=== PATIENT | female | born 1965 | race Caucasian/White ===

== ENCOUNTER → 2016-10-03 | Outpatient (REF) | payer OTHER ==
[~2016-10-03] MED LIST: ALBU17IN INH; BACL-67 PO; BACL10TA2 PO; BUTR5DIS2 TD; CETI10TA OR; CLAR5CHW; DOCU100T8 PO; DRIS50002 PO; EFFE75CA75 OR; ESTR2TAB4 PV; ESTRGEL TD; FENT25DI22 TD; FLON0.05; GLUC500T3 PO; GREEN FOODS COMPLEX PO; HYDR-3713 PO; HYDR-3719 PO; HYDR12.55 PO; IMIT50TA OR; K-TA10TA PO; LOSA50TA20 PO; MELOPOW; MELOPOW PO; OMEP40CA2 PO; PEPC20TA2; POTA75TA2 PO; PREG50CA; PREG50CA PO; PREV15CA; PREV15CA PO; PREV30CA11 PO; PROBCAP4 PO; SAVE50TA PO; SAVELLA; SEVELLA; SYNT25TA PO; SYNT50TA PO; TIZA4TAB OR; TRAM50TA2 OR; VICO5TAB; VICODINES TAB; VITAMIN D50000 UNT PO; ZANA4CAP PO; ZEST20TA4 OR; [UNRECOGNIZED DRUG - CODE] TOP; [UNRECOGNIZED DRUG - OTHER] PO
[2016-10-03 09:53] LABS: ALBUMIN 3.9 GM/DL (3.2-5.2); ALBUMIN/GLOBULIN RATIO 1.18 (1.00-1.93); ALKALINE PHOSPHATASE 84 U/L (45-117); ALT/SGPT 44 U/L (12-78); ANION GAP 10 MEQ/L (8-16); AST/SGOT 23 U/L (15-37); BILIRUBIN,TOTAL 0.8 MG/DL (0.2-1.0); BLOOD UREA NITROGEN 12 MG/DL (7-18); CALCIUM LEVEL 9.1 MG/DL (8.5-10.1); CARBON DIOXIDE LEVEL 30 MEQ/L (21-32); CHLORIDE LEVEL 103 MEQ/L (98-107); CREATININE FOR GFR 0.96 MG/DL (0.55-1.02); FREE T4 1.19 NG/DL (0.76-1.46); GLOMERULAR FILTRATION RATE > 60.0 (>51); GLUCOSE, FASTING 94 MG/DL (70-105); SODIUM LEVEL 143 MEQ/L (136-145); TOTAL PROTEIN 7.2 GM/DL (6.4-8.2)
== END ==
LOC: M SFHCPLAZ 08:14
PROVIDERS: ATTEND Nurse Practitioner Family
DX: I15.8 Other secondary hypertension (principal); E03.9 Hypothyroidism, unspecified; E55.9 Vitamin D deficiency, unspecified

== ENCOUNTER → 2016-11-19 | Outpatient (CLI) | payer OTHER ==
--- NOTE | 2016-11-23 01:51 | ECWPNPC ---
PATIENT NAME: ROSHAN WOODS : 1965 GENDER: FEMALE VISIT DATE: 11/19/2016 DISCHARGE DATE: 11/19/1644 VISIT LOCKED DATE TIME: PHYSICIAN: LAUREN DE LA ROSA RESOURCE: LAUREN DE LA ROSA REASON FOR APPOINTMENT 1. FOLLOWUP-BACK HISTORY OF PRESENT ILLNESS HISTORY OF PRESENT ILLNESS: HERE FOR F/U OF CHRONIC LBP.PAIN HAS ESCALATED LATELY.RATING PAIN VAS 5/10.PAIN IS DESCRIBED CONSTANT ACHING.CURRENTLY USING FENTANYL 25MCG Q 72 HRS AND HYDROCODONE 10/325 PRN.FINDS MEDICATION HELPFUL AT REDUCING PAIN AND KEEPING HER FUNCTIONAL.DENIES SIDE EFFECTS.DISCUSSED DIAGNOSTIC FACET BLOCK. FALL RISK SCREENING: SCREENING :NO FALLS IN THE PAST YEAR CURRENT MEDICATIONS TAKING ESTRACE 2 GRAMS VAGINAL 2 TIMES A WEEK TAKING PAIN RELIEVING RUB CREAM 1 DOSE EXTERNALLY NEEDED/ TAKING PROBIOTIC CAPSULE ORALLY DAILY TAKING IMITREX 50 MG TABLET 1 TAB ORALLY NEEDED/ FOR MIGRAINES TAKING HYDROXYCHLOROQUINE SULFATE 200 MG TABLET 1 TABLET WITH FOOD OR MILK ORALLY TWICE A DAY TAKING BACLOFEN 20 MG TABLET 1 CAP(S) ORALLY Q6H NEEDED TAKING SYNTHROID 75 MCG TABLET 1 TABLET ON AN EMPTY STOMACH IN THE MORNING ORALLY ONCE A DAY TAKING LOSARTAN POTASSIUM 50 MG TABLET 1 TABLET ORALLY DAILY TAKING OMEPRAZOLE 40 MG 1 CAPSULE ORALLY DAILY TAKING FLONASE INHALER 2 SPRAY IN EACH NOSTRIL NASALLY ONCE A DAY TAKING ZYRTEC 10 MG TABLET 1 TABLET NEEDED ORALLY ONCE A DAY TAKING VENTOLIN HFA AEROSOL SOLUTION 2 PUFFS NEEDED INHALATION EVERY 4 HOURS NEEDED TAKING VITAMIN D 22398 UNIT CAPSULE 1 CAPSULE ORALLY ONCE A WEEK TAKING HYDROCODONE-ACETAMINOPHEN 10-325 MG TABLET 1/2 TO 1 TAB ORALLY Q6-8 H MDD3 TAKING FENTANYL 25 MCG/HR PATCH 72 HOUR 1 PATCH TO SKIN TRANSDERMAL 1 PATCH C84U=IEE NOT-TAKING POTASSIUM CHLORIDE 10 MEQ 3 TABS ORALLY DAILY NOT-TAKING OMEPRAZOLE 40 MG CAPSULE DELAYED RELEASE 1 CAPSULE ORALLY ONCE A DAY NOT-TAKING DOCUSATE SODIUM 100 MG CAPSULE ORALLY ONCE A DAY NEEDED MEDICATION LIST REVIEWED AND RECONCILED WITH THE PATIENT PAST MEDICAL HISTORY LUPUS RA SLEEP APNEA FIBROMYALGIA HYPERTENSION GERD CHRONIC BACK PROBLEMS (BULDGING DISC) SOB WHEN IN SEVERE BACK PAIN USES VENTOLIN INHALER COLONOSCOPY WITH EGD 2015 ALLERGIES N.K.D.A. SOCIAL HISTORY GENERAL: TOBACCO USE ARE YOU A:NONSMOKER LEARNING BARRIERS / SPECIAL NEEDS ORIENTED TO PLAN OF CARE: PATIENT, PAIN MANAGEMENT PATIENT, ORIENTED TO PLAN OF CARE: PATIENT, PAIN MANAGEMENT PATIENT. NEW PATIENT PAIN DIARY TODAY'S VISITNOTES FROM 0-10, WHAT LEVEL IS YOUR PAIN TODAY?0 PAIN CLINIC PFS, CLERGY, PUBLIC HEALTH REFERRALS PFS REFERRAL NEEDED?NO CLERGY REFERRAL NEEDED?NO PUBLIC HEALTH REFERRAL NEEDED?NO WAS THE PROVIDER NOTIFIED OF ANY PERTINENT INFO?NO PFS REFERRAL NEEDED?NO CLERGY REFERRAL NEEDED?NO PUBLIC HEALTH REFERRAL NEEDED?NO WAS THE PROVIDER NOTIFIED OF ANY PERTINENT INFO?NO REVIEW OF SYSTEMS CONSTITUTIONAL: ANY CHANGE IN YOUR MEDICAL CONDITION? NO . CHILLS NO . FEVER NO . INFECTION: DO YOU HAVE NEW INFECTIONS? NO . DO YOU HAVE HISTORY OF MRSA? NO . MUSCULOSKELETAL: ANY NEW PATTERNS OF PAIN OR NUMBNESS? NO . GASTROENTEROLOGY: ANY NEW CHANGE IN BOWEL CONTROL? NO . GENITOURINARY: ANY NEW CHANGE IN BLADDER CONTROL? NO . IS THERE A CHANCE YOU COULD BE ? NO . HEMATOLOGY/LYMPH: DO YOU TAKE ANY BLOOD THINNERS? (FOR EXAMPLE- COUMADIN, PLAVIX, AGGRENOX, PLATEL, PRADAXA, OR XARELTO) NO . WHEN WAS YOUR LAST DOSE? DATE: TIME: . NEUROLOGY: HAVE YOU FALLEN IN THE PAST 6 MONTHS? YES . ANY NEW EXTREMITY NUMBNESS OR WEAKNESS? NO . CARDIOLOGY: DO YOU HAVE A PACEMAKER OR DEFIBRILLATOR? NO . RESPIRATORY: HAVE YOU BEEN SICK IN THE PAST WEEK? YES, UPPER RESPIRATORY . FEVER YES . FLU LIKE SYMPTOMS? NO . COUGH YES . INTEGUMENTARY: DO YOU HAVE ANY RASHES OR OPEN SORES? NO . ALLERGIC/IMMUNO: ARE YOU ALLERGIC TO SHELLFISH OR IV DYE? NO . ANY NEW ALLERGIES? NO . PSYCHIATRIC: DO YOU HAVE THOUGHTS OF HURTING YOURSELF OR SOMEONE ELSE? NO . ARE YOU ABUSED, NEGLECTED, OR IN AN UNSAFE ENVIRONMENT? NO . ENDOCRINOLOGY: ARE YOU DIABETIC? NO . OTHER: DO YOU NEED ANY PRESCRIPTIONS? YES . IF YES, PLEASE LIST: FENTANYL PATCH AND HYDROCODONE . ANY NEW PROBLEMS WITH YOUR MEDICATIONS? NO . WHEN DID YOU LAST EAT? ____ . WHEN DID YOU LAST DRINK? ____ . WHAT DID YOU LAST DRINK? ____ . NAME OF PERSON DRIVING YOU HOME? ____ . DO YOU HAVE ANY OTHER QUESTIONS OR CONCERNS NO . REVIEWED BY: PROVIDER: LAUREN ALEXANDRA . VITAL SIGNS WT 266 LBS, HT 64.5 IN, BMI 44.95 INDEX, BP 150/82 MM HG, HR 89 /MIN, RR 18 /MIN, TEMP 98.5 F, OXYGEN SAT % 96%, NA INITIALS TL, REVIEWED BY: SWATI. EXAMINATION GENERAL EXAMINATION: LUNGS:LUNG SOUNDS ARE CLEAR. HEART:HEART RATE REGULAR. MUSCULOSKELETAL:PALPATION: POSITIVE FOR PAIN OVER L/S SPINE. POSITIVE FOR PAIN OVER L/S PARSPINALS.POINT TENDERNEDD OVER RIGHT T8-10 AXIAL AND PARASPINAL.. DIAGNOSTIC:MRI L/S SPINE 2015-REVIEWED.. ASSESSMENTS LUPUS - M32.9 (PRIMARY) LOW BACK PAIN OF OVER 3 MONTHS DURATION - M54.5 FACET ARTHROPATHY - M12.88 CHRONIC PRESCRIPTION OPIATE USE - Z79.891 TREATMENT LUPUS CONTINUE BACLOFEN TABLET, 20 MG, 1 CAP(S), ORALLY, Q6H NEEDED REFILL HYDROCODONE-ACETAMINOPHEN TABLET, 10-325 MG, 1/2 TO 1 TAB, ORALLY, Q6-8 H MDD3, 30 DAY(S), 90, REFILLS 0 REFILL FENTANYL PATCH 72 HOUR, 25 MCG/HR, 1 PATCH TO SKIN, TRANSDERMAL, 1 PATCH P20F=OLO, 30 DAY(S), 10, REFILLS 0 INJECTION FACET JOINT/NERVE LUMBAR/SACRALBARBERLAUREN 11/19/2016 9:29:50 AM > LEFT L3/4-L4/5 DIAGNOSTIC FACET BLOCK FACET ARTHROPATHY INJECTION FACET JOINT/NERVE LUMBAR/SACRALBARBER,LAUREN 11/19/2016 9:29:50 AM > LEFT L3/4-L4/5 DIAGNOSTIC FACET BLOCK PROCEDURE CODES FA211 ESTABILISHED PATIENT [facility] FACILITY CHARGE DISPOSITION & COMMUNICATION FOLLOW UP 2WK POST (REASON: LEFT L3/4-L4/5 DIAGNOSTIC FACET BLOCK-GIOVANNA AUTH) ELECTRONICALLY SIGNED BY NASRIN SLAUGHETR ON 11/19/2016 AT 10:07 AM EST DISCLAIMER : THIS IS A VISIT SUMMARY EXTRACTED FROM THE [employer] CHART. IT IS NOT A COPY OF THE [employer] PROGRESS NOTE. MTDD
== END ==
LOC: M PAIN 08:40
PROVIDERS: ATTEND Nurse Practitioner Family
DX: M32.9 Systemic lupus erythematosus, unspecified (principal); M54.5 Low back pain; M12.88 Other specific arthropathies, not elsewhere classified, other specified site; Z79.891 Long term (current) use of opiate analgesic; Z79.899 Other long term (current) drug therapy; M79.7 Fibromyalgia; R06.02 Shortness of breath; I10 Essential (primary) hypertension; K21.0 Gastro-esophageal reflux disease with esophagitis; E55.9 Vitamin D deficiency, unspecified; G43.909 Migraine, unspecified, not intractable, without status migrainosus

== ENCOUNTER → 2016-12-17 | Outpatient (CLI) | payer OTHER ==
[~2016-12-17] MED LIST changes: +BUPIVACAINE HCL 0.25% 30 ML VIAL As Ordered ONE; +ISOVUE-M 300 61% 15ML VIAL (Q9967) As Ordered ONE; +LIDOCAINE 1% SDV INJ 30 ML VIAL As Ordered ONE
--- NOTE | 2016-12-17 11:36 | REP ---
Partial lumbar spine series: Single view. History: Facet block for pain. 24 seconds of fluoroscopy time is reported. Findings: A single fluoroscopically obtained into procedural spot radiograph of the lumbar spine documents needle positions and contrast injection associated with facet injection procedure. [employer] Signed by George Peraza MD 12/17/2016 11:27 A
--- NOTE | 2016-12-23 23:43 | ECWPNPC ---
PATIENT NAME: ROSHAN WOODS : 1965 GENDER: FEMALE VISIT DATE: 12/17/2016 DISCHARGE DATE: 12/17/16 1017 VISIT LOCKED DATE TIME: PHYSICIAN: ABBI MONTERO RESOURCE: ABBI MONTERO REASON FOR APPOINTMENT 1. FACET HISTORY OF PRESENT ILLNESS HISTORY OF PRESENT ILLNESS: PAIN THE PATIENT DESCRIBES THE PAIN... FALL RISK SCREENING: SCREENING :NO FALLS IN THE PAST YEAR CURRENT MEDICATIONS TAKING ESTRACE 2 GRAMS VAGINAL 2 TIMES A WEEK, NOTES: 423 10PM TAKING PAIN RELIEVING RUB CREAM 1 DOSE EXTERNALLY NEEDED/, NOTES: 1 WEEK TAKING PROBIOTIC CAPSULE ORALLY DAILY, NOTES: 12/17 10AM TAKING IMITREX 50 MG TABLET 1 TAB ORALLY NEEDED/ FOR MIGRAINES, NOTES: 1 WEEK TAKING HYDROXYCHLOROQUINE SULFATE 200 MG TABLET 1 TABLET WITH FOOD OR MILK ORALLY TWICE A DAY, NOTES: 12/16 6PM TAKING SYNTHROID 75 MCG TABLET 1 TABLET ON AN EMPTY STOMACH IN THE MORNING ORALLY ONCE A DAY, NOTES: 12/17 6AM TAKING OMEPRAZOLE 40 MG 1 CAPSULE ORALLY DAILY, NOTES: 12/16 6PM TAKING FLONASE INHALER 2 SPRAY IN EACH NOSTRIL NASALLY ONCE A DAY, NOTES: 12/16 10AM TAKING VENTOLIN HFA AEROSOL SOLUTION 2 PUFFS NEEDED INHALATION EVERY 4 HOURS NEEDED, NOTES: 1 WEEK TAKING VITAMIN D 02462 UNIT CAPSULE 1 CAPSULE ORALLY ONCE A WEEK, NOTES: 2 DAYS AGO TAKING BACLOFEN 20 MG TABLET 1 CAP(S) ORALLY Q6H NEEDED, NOTES: 12/16 10PM TAKING HYDROCODONE-ACETAMINOPHEN 10-325 MG TABLET 1/2 TO 1 TAB ORALLY Q6-8 H MDD3, NOTES: 12/16 10PM TAKING FENTANYL 25 MCG/HR PATCH 72 HOUR 1 PATCH TO SKIN TRANSDERMAL 1 PATCH C84Q=GLQ, NOTES: REMOVED 12/17 7:30AM TAKING LOSARTAN POTASSIUM 50 MG TABLET 1 TABLET ORALLY DAILY, NOTES: 12/16 10PM TAKING ZYRTEC 10 MG TABLET 1 TABLET NEEDED ORALLY ONCE A DAY, NOTES: 12/16 10PM NOT-TAKING POTASSIUM CHLORIDE 10 MEQ 3 TABS ORALLY DAILY NOT-TAKING OMEPRAZOLE 40 MG CAPSULE DELAYED RELEASE 1 CAPSULE ORALLY ONCE A DAY NOT-TAKING DOCUSATE SODIUM 100 MG CAPSULE ORALLY ONCE A DAY NEEDED MEDICATION LIST REVIEWED AND RECONCILED WITH THE PATIENT PAST MEDICAL HISTORY LUPUS RA SLEEP APNEA FIBROMYALGIA HYPERTENSION GERD CHRONIC BACK PROBLEMS (BULDGING DISC) SOB WHEN IN SEVERE BACK PAIN USES VENTOLIN INHALER COLONOSCOPY WITH EGD 2015 ALLERGIES N.K.D.A. SOCIAL HISTORY GENERAL: PAIN CLINIC PFS, CLERGY, PUBLIC HEALTH REFERRALS CLERGY REFERRAL NEEDED?NO WAS THE PROVIDER NOTIFIED OF ANY PERTINENT INFO?NO PFS REFERRAL NEEDED?NO PUBLIC HEALTH REFERRAL NEEDED?NO PATIENT: ____. REVIEW OF SYSTEMS CONSTITUTIONAL: ANY CHANGE IN YOUR MEDICAL CONDITION? NO . CHILLS NO . FEVER NO . INFECTION: DO YOU HAVE NEW INFECTIONS? NO . DO YOU HAVE HISTORY OF MRSA? NO . MUSCULOSKELETAL: ANY NEW PATTERNS OF PAIN OR NUMBNESS? NO . GASTROENTEROLOGY: ANY NEW CHANGE IN BOWEL CONTROL? NO . GENITOURINARY: ANY NEW CHANGE IN BLADDER CONTROL? NO . IS THERE A CHANCE YOU COULD BE ? NO . HEMATOLOGY/LYMPH: DO YOU TAKE ANY BLOOD THINNERS? (FOR EXAMPLE- COUMADIN, PLAVIX, AGGRENOX, PLATEL, PRADAXA, OR XARELTO) NO . WHEN WAS YOUR LAST DOSE? DATE: TIME: . NEUROLOGY: HAVE YOU FALLEN IN THE PAST 6 MONTHS? NO . ANY NEW EXTREMITY NUMBNESS OR WEAKNESS? NO . CARDIOLOGY: DO YOU HAVE A PACEMAKER OR DEFIBRILLATOR? NO . RESPIRATORY: HAVE YOU BEEN SICK IN THE PAST WEEK? NO . FEVER NO . FLU LIKE SYMPTOMS? NO . COUGH NO . INTEGUMENTARY: DO YOU HAVE ANY RASHES OR OPEN SORES? YES, RASH ON FACE, LUPUS RASH. . ALLERGIC/IMMUNO: ARE YOU ALLERGIC TO SHELLFISH OR IV DYE? NO . ANY NEW ALLERGIES? NO . PSYCHIATRIC: DO YOU HAVE THOUGHTS OF HURTING YOURSELF OR SOMEONE ELSE? NO . ARE YOU ABUSED, NEGLECTED, OR IN AN UNSAFE ENVIRONMENT? NO . ENDOCRINOLOGY: ARE YOU DIABETIC? NO . OTHER: DO YOU NEED ANY PRESCRIPTIONS? NO . IF YES, PLEASE LIST: ____ . ANY NEW PROBLEMS WITH YOUR MEDICATIONS? NO . WHEN DID YOU LAST EAT? 8PM 12/16/16 . WHEN DID YOU LAST DRINK? 12/17/16 6AM . WHAT DID YOU LAST DRINK? WATER . NAME OF PERSON DRIVING YOU HOME? [employer] . DO YOU HAVE ANY OTHER QUESTIONS OR CONCERNS NO . REVIEWED BY: PROVIDER: . VITAL SIGNS WT 272 LBS, HT 64.5 IN, BMI 45.96 INDEX, BP 147/92 MM HG, HR 87 /MIN, RR 18 /MIN, TEMP 97.8 F, OXYGEN SAT % 96%, SAFE IN ENV? (Y/N) Y, NA INITIALS NC 09:04, REVIEWED BY: CYNTHIA. ASSESSMENTS SPONDYLOSIS WITHOUT MYELOPATHY OR RADICULOPATHY, LUMBAR REGION - M47.816 (PRIMARY) SPONDYLOSIS WITHOUT MYELOPATHY OR RADICULOPATHY, LUMBOSACRAL REGION - M47.817 PROCEDURES PN LUMBAR FACET BLOCK DIAGNOSTIC PRE PROCEDURE DIAGNOSIS : LUMBOSACRAL SPONDYLOSIS, LUMBAR SPONDYLOSIS POST PROCEDURE DIAGNOSIS : LUMBOSACRAL SPONDYLOSIS, LUMBAR SPONDYLOSIS PROCEDURE LEFT L4-L5 AND LEFT L5-S1 FACET BLOCK DIAGNOSTIC NUMBER #[address] ABBI MONTERO WARP COILER NONE ANESTHESIA LOCAL PRE PROCEDURE NOTE THE PATIENT WITH HISTORY OF CHRONIC LOW BACK PAIN. I EVALUATED THE PATIENT AND REVIEWED THE CHART. I WENT OVER THE RISKS, ALTERNATIVES, AND BENEFITS ASSOCIATED WITH THIS PROCEDURE. THE PATIENT WOULD LIKE TO PROCEED AND GAVE CONSENT TO PERFORM THE PROCEDURE. AGREED WITH THE PATIENT WE ARE DOING THIS PROCEDURE TO DETERMINE IF THE PATIENT IS A CANDIDATE FOR A RADIOFREQUENCY ABLATION OF THE FACETS JOINTS. THE PATIENT DENIES UNEXPLAINABLE WEIGHT LOSS, FEVER, CHILLS, OR NEW CHANGES IN URINARY OR BOWEL CONTROL DESCRIPTION OF PROCEDURE THE PATIENT WAS BROUGHT TO THE PROCEDURE ROOM AND PLACED IN THE PRONE POSITION. THE LUMBOSACRAL AREA WAS CLEANED WITH CHLORAPREP SOLUTION AND DRAPED ASEPTICALLY. THE PROCEDURE WAS DONE UNDER STERILE CONDITIONS. I CHECKED LATERALITY AND THE LEVEL WHERE THE PROCEDURE WAS GOING TO BE PERFORMED WITH THE PATIENT AND THE SUPPORTING STAFF AT THE MOMENT OF THE TIME OUT IN THE PROCEDURE ROOM. UNDER FLUOROSCOPIC GUIDANCE, TARGETS WERE SELECTED AT THE INTERSECTION OF THE LEFT TRANSVERSE PROCESS OF L4, L5 AND ALA OF S1 WITH ITS RESPECTIVE SUPERIOR ARTICULAR PROCESS. LIDOCAINE WAS USED TO NUMB THE SKIN AND THE SUBCUTANEOUS TISSUE BELOW IT. SPINAL NEEDLE, 22-GAUGE WAS ADVANCED UNDER FLUOROSCOPIC GUIDANCE AND FOLLOWING PATIENT FEEDBACK UNTIL THE TARGETS WERE REACHED. POSITION OF THE NEEDLES WAS VERIFIED WITH AP AND LATERAL VIEWS. AFTER PROPER POSITION OF THE NEEDLES WAS ACHIEVED, ISOVUE-M DYE 30% 0.1 ML WAS INJECTED AT EACH SITE SHOWING ADEQUATE SPREAD OF THE DYE. THEN A SOLUTION OF 0.4 ML OF BUPIVACAINE 0.25% WAS INJECTED AT EACH SITE. THERE WAS NO EVIDENCE OF BLOOD, PARESTHESIA OR CEREBROSPINAL FLUID DURING THE PROCEDURE. THE PATIENT WAS SENT TO THE RECOVERY ROOM. THE PATIENT WAS MOVING THE EXTREMITIES AND DOING WELL. THERE WAS NO COMPLICATION DURING THE PROCEDURE. FLUOROSCOPY TIME WAS 26 SECONDS POST PROCEDURE NOTE THE PATIENT WILL DOCUMENT HIS PAIN LEVEL AND RESPONSE TO THIS PROCEDURE EVERY 30 MINUTES. THE PATIENT WILL BE SEEN IN A FOLLOW UP IN THE NEXT FEW WEEKS. FURTHER DETERMINATION FOR HIS CASE WILL BE DONE AT THE NEXT VISIT. INSTRUCTIONS WERE GIVEN, QUESTIONS WERE ANSWERED, AND THE PATIENT EXPRESSED UNDERSTANDING AND AGREED WITH THE PLAN. I, NENA WOODSON, DOCUMENTED THE ABOVE INFORMATION ACTING A SCRIBE FOR DR. MONTERO. I HAVE REVIEWED THE ABOVE DOCUMENT, WRITTEN BY NENA WOODSON SCRIBE AND I VERIFY THAT IT IS ACCURATE. DIAGNOSTIC IMAGING [facility] FACET BLOCK (PAIN)[id number] PROCEDURE CODES 20907 INJ PARAVERT F JNT L/S 1 LEV 07928 INJ PARAVERT F JNT L/S 2 LEV 6045F RADXPS IN END [id number] PXD DISPOSITION & COMMUNICATION FOLLOW UP 3 WEEKS ELECTRONICALLY SIGNED BY ABBI MONTERO MD ON 12/23/2016 AT 09:32 PM EDT DISCLAIMER : THIS IS A VISIT SUMMARY EXTRACTED FROM THE [employer] CHART. IT IS NOT A COPY OF THE [employer] PROGRESS NOTE. MTDD
== END ==
LOC: M PAIN 09:00
PROVIDERS: ATTEND Anesthesiology
DX: G89.29 Other chronic pain (principal); M47.816 Spondylosis without myelopathy or radiculopathy, lumbar region; M47.817 Spondylosis without myelopathy or radiculopathy, lumbosacral region; M32.9 Systemic lupus erythematosus, unspecified; M06.9 Rheumatoid arthritis, unspecified; G47.30 Sleep apnea, unspecified; M79.7 Fibromyalgia; I10 Essential (primary) hypertension; K21.9 Gastro-esophageal reflux disease without esophagitis; Z79.891 Long term (current) use of opiate analgesic; Z79.899 Other long term (current) drug therapy

== ENCOUNTER → 2017-01-02 | Outpatient (REF) | payer OTHER ==
[~2017-01-02] MED LIST changes: -BUPIVACAINE HCL 0.25% 30 ML VIAL As Ordered ONE; -ISOVUE-M 300 61% 15ML VIAL (Q9967) As Ordered ONE; -LIDOCAINE 1% SDV INJ 30 ML VIAL As Ordered ONE
[2017-01-08 00:06] LABS: ANTI-SACCHAROMYCES CEREV. IgA 20.3 Units (0.0-24.9); ANTI-SACCHAROMYCES CEREV. IgG 26.4 Units (0.0-24.9); ENDOMYSIAL ABY IgA Negative (Negative)
== END ==
LOC: M LABDRAWP 11:58
PROVIDERS: ATTEND Nurse Practitioner Adult Health
DX: R19.4 Change in bowel habit (principal); K21.9 Gastro-esophageal reflux disease without esophagitis; R10.12 Left upper quadrant pain

== ENCOUNTER → 2017-01-02 | Outpatient (REF) | payer OTHER ==
[2017-01-02 13:11] LABS: FREE T4 1.39 NG/DL (0.76-1.46)
== END ==
LOC: M SFHCPLAZ 09:32
PROVIDERS: ATTEND Nurse Practitioner Family
DX: E03.9 Hypothyroidism, unspecified (principal)

== ENCOUNTER → 2017-01-15 | Outpatient (CLI) | payer OTHER ==
--- NOTE | 2017-01-16 01:08 | ECWPNPC ---
PATIENT NAME: ROSHAN WOODS : 1965 GENDER: FEMALE VISIT DATE: 01/15/2017 DISCHARGE DATE: 01/15/17 1059 VISIT LOCKED DATE TIME: PHYSICIAN: LAUREN DE LA ROSA RESOURCE: LAUREN DE LA ROSA REASON FOR APPOINTMENT 1. POST PROCEDURE HISTORY OF PRESENT ILLNESS HISTORY OF PRESENT ILLNESS: HERE FOR POST PROCEDURE F/U.HAD DIAGNOSTIC #2 L4/5-L5/6 ON 12-17-16.HOURLY PAIN DIARY REVIEWED AND THIS IS SHOWING GREATER THAN 50% IMPROVEMENT IN PAIN X 3 DAYS.PAIN HAS RETURNED TO BASELINE.RATING LOW BACK PAIN 5/10 VAS.DESCRIBES PAIN CONSTANT ACHING.PAIN IS AGGREVATED BY WALKING AND HOUSE CHORES.PAIN IS RELIEVED SOMEWHAT WITH HYDROCODONE 10/325 AND REST.ALSO USING FENTANYL PATCH 25MCG Q 72 H. PAIN THE PATIENT DESCRIBES THE PAIN... FALL RISK SCREENING: SCREENING :NO FALLS IN THE PAST YEAR CURRENT MEDICATIONS TAKING ESTRACE 2 GRAMS VAGINAL 2 TIMES A WEEK TAKING PAIN RELIEVING RUB CREAM 1 DOSE EXTERNALLY NEEDED/ TAKING PROBIOTIC CAPSULE ORALLY DAILY TAKING IMITREX 50 MG TABLET 1 TAB ORALLY NEEDED/ FOR MIGRAINES TAKING HYDROXYCHLOROQUINE SULFATE 200 MG TABLET 1 TABLET WITH FOOD OR MILK ORALLY TWICE A DAY TAKING SYNTHROID 75 MCG TABLET 1 TABLET ON AN EMPTY STOMACH IN THE MORNING ORALLY ONCE A DAY TAKING OMEPRAZOLE 40 MG 1 CAPSULE ORALLY DAILY TAKING FLONASE INHALER 2 SPRAY IN EACH NOSTRIL NASALLY ONCE A DAY TAKING VENTOLIN HFA AEROSOL SOLUTION 2 PUFFS NEEDED INHALATION EVERY 4 HOURS NEEDED TAKING VITAMIN D 77106 UNIT CAPSULE 1 CAPSULE ORALLY ONCE A WEEK TAKING BACLOFEN 20 MG TABLET 1 CAP(S) ORALLY Q6H NEEDED TAKING LOSARTAN POTASSIUM 50 MG TABLET 1 TABLET ORALLY DAILY TAKING ZYRTEC 10 MG TABLET 1 TABLET NEEDED ORALLY ONCE A DAY TAKING HYDROCODONE-ACETAMINOPHEN 10-325 MG TABLET 1/2 TO 1 TAB ORALLY Q6-8 H MDD3 TAKING FENTANYL 25 MCG/HR PATCH 72 HOUR 1 PATCH TO SKIN TRANSDERMAL 1 PATCH Z91T=CFA TAKING SUCRALFATE 1 GM TABLET 1 TABLET ON AN EMPTY STOMACH ORALLY FOUR TIMES A DAY NOT-TAKING POTASSIUM CHLORIDE 10 MEQ 3 TABS ORALLY DAILY NOT-TAKING OMEPRAZOLE 40 MG CAPSULE DELAYED RELEASE 1 CAPSULE ORALLY ONCE A DAY NOT-TAKING DOCUSATE SODIUM 100 MG CAPSULE ORALLY ONCE A DAY NEEDED MEDICATION LIST REVIEWED AND RECONCILED WITH THE PATIENT PAST MEDICAL HISTORY LUPUS RA SLEEP APNEA FIBROMYALGIA HYPERTENSION GERD CHRONIC BACK PROBLEMS (BULDGING DISC) SOB WHEN IN SEVERE BACK PAIN USES VENTOLIN INHALER COLONOSCOPY WITH EGD 2015 ALLERGIES N.K.D.A. REVIEW OF SYSTEMS CONSTITUTIONAL: ANY CHANGE IN YOUR MEDICAL CONDITION? YES, BEING WORKED UP FOR [employer]OH[employer] . CHILLS NO . FEVER NO . INFECTION: DO YOU HAVE NEW INFECTIONS? NO . DO YOU HAVE HISTORY OF MRSA? NO . MUSCULOSKELETAL: ANY NEW PATTERNS OF PAIN OR NUMBNESS? NO . GASTROENTEROLOGY: ANY NEW CHANGE IN BOWEL CONTROL? NO . GENITOURINARY: ANY NEW CHANGE IN BLADDER CONTROL? NO . IS THERE A CHANCE YOU COULD BE ? NO . HEMATOLOGY/LYMPH: DO YOU TAKE ANY BLOOD THINNERS? (FOR EXAMPLE- COUMADIN, PLAVIX, AGGRENOX, PLATEL, PRADAXA, OR XARELTO) NO . WHEN WAS YOUR LAST DOSE? DATE: TIME: . NEUROLOGY: HAVE YOU FALLEN IN THE PAST 6 MONTHS? NO . ANY NEW EXTREMITY NUMBNESS OR WEAKNESS? NO . CARDIOLOGY: DO YOU HAVE A PACEMAKER OR DEFIBRILLATOR? NO . RESPIRATORY: HAVE YOU BEEN SICK IN THE PAST WEEK? NO . FEVER NO . FLU LIKE SYMPTOMS? NO . COUGH NO . INTEGUMENTARY: DO YOU HAVE ANY RASHES OR OPEN SORES? YES, LUPUS, ON FACE . ALLERGIC/IMMUNO: ARE YOU ALLERGIC TO SHELLFISH OR IV DYE? NO . ANY NEW ALLERGIES? NO . PSYCHIATRIC: DO YOU HAVE THOUGHTS OF HURTING YOURSELF OR SOMEONE ELSE? NO . ARE YOU ABUSED, NEGLECTED, OR IN AN UNSAFE ENVIRONMENT? NO . ENDOCRINOLOGY: ARE YOU DIABETIC? NO . OTHER: DO YOU NEED ANY PRESCRIPTIONS? YES . IF YES, PLEASE LIST: FENTANYL, BACLOFEN, HYDROCODONE . ANY NEW PROBLEMS WITH YOUR MEDICATIONS? NO . WHEN DID YOU LAST EAT? ____ . WHEN DID YOU LAST DRINK? ____ . WHAT DID YOU LAST DRINK? ____ . NAME OF PERSON DRIVING YOU HOME? ____ . DO YOU HAVE ANY OTHER QUESTIONS OR CONCERNS NO . REVIEWED BY: PROVIDER: LAUREN ALEXANDRA . VITAL SIGNS WT 272.0 LBS, HT 64.5 IN, BMI 45.96 INDEX, BP 131/72 MM HG, HR 94 /MIN, RR 18 /MIN, TEMP 98.0 F, OXYGEN SAT % 93%, NA INITIALS AW 1003, REVIEWED BY: SWATI. EXAMINATION GENERAL EXAMINATION: LUNGS:LUNG SOUNDS ARE CLEAR. HEART:HEART RATE REGULAR. MUSCULOSKELETAL:PALPATION: POSITIVE FOR PAIN OVER L/S SPINE. POSITIVE FOR PAIN OVER L/S PARSPINALS.POINT TENDERNEDD OVER RIGHT T8-10 AXIAL AND PARASPINAL.. DIAGNOSTIC:MRI L/S SPINE 2015-REVIEWED.. 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 (PRIMARY) CHRONIC PRESCRIPTION OPIATE USE - Z79.891 LUPUS - M32.9 TREATMENT LUMBAR SPONDYLOLYSIS RF FACET LUMBAR SACRALLAUREN DE LA ROSA 01/15/2017 10:44:28 AM > LEFT L4/5-L5/S1 RADIOFREQUENCY LUPUS REFILL HYDROCODONE-ACETAMINOPHEN TABLET, 10-325 MG, 1/2 TO 1 TAB, ORALLY, Q6-8 H MDD3, 30 DAY(S), 90, REFILLS 0 REFILL FENTANYL PATCH 72 HOUR, 25 MCG/HR, 1 PATCH TO SKIN, TRANSDERMAL, 1 PATCH N21T=TZA, 30 DAY(S), 10, REFILLS 0 PROCEDURE CODES FA211 ESTABILISHED PATIENT [facility] CHARGE DISPOSITION & COMMUNICATION FOLLOW UP 4 WEEKS POST PROCEDURE (REASON: RF LEFT L4/5-L5/S1) ELECTRONICALLY SIGNED BY NASRIN SLAUGHTER ON 01/15/2017 AT 12:51 PM EDT DISCLAIMER : THIS IS A VISIT SUMMARY EXTRACTED FROM THE [employer] CHART. IT IS NOT A COPY OF THE [employer] PROGRESS NOTE. MTDD
== END ==
LOC: M PAIN 09:40
PROVIDERS: ATTEND Nurse Practitioner Family
DX: G89.29 Other chronic pain (principal); M43.06 Spondylolysis, lumbar region; M32.9 Systemic lupus erythematosus, unspecified; M06.9 Rheumatoid arthritis, unspecified; G47.30 Sleep apnea, unspecified; M79.7 Fibromyalgia; K21.9 Gastro-esophageal reflux disease without esophagitis; I10 Essential (primary) hypertension; G43.909 Migraine, unspecified, not intractable, without status migrainosus; E03.9 Hypothyroidism, unspecified; E55.9 Vitamin D deficiency, unspecified; Z79.891 Long term (current) use of opiate analgesic; Z79.899 Other long term (current) drug therapy

== ENCOUNTER → 2017-03-25 | Outpatient (CLI) | payer MEDICAID, OTHER ==
[~2017-03-25] MED LIST changes: -BACL-67 PO; +BACL1TAB9 PO; +BUPIVACAINE HCL 0.25% 30 ML VIAL As Ordered ONE; +ISOVUE-M 300 61% 15ML VIAL (Q9967) As Ordered ONE; +LIDOCAINE 1% SDV INJ 30 ML VIAL As Ordered ONE; +PREV1CAP PO; -PREV30CA11 PO; +TRIAMCINOLONE ACETONIDE SUSP 40 MG/ML VIAL (J3301) As Ordered ONE
--- NOTE | 2017-03-25 16:38 | REP ---
Partial lumbar spine series: Three use. . History: Injection procedure for pain. 1 minute 17 seconds of fluoroscopy time is reported. Findings: A sequence of three fluoroscopically obtained last image hold procedural spot radiographs of the lumbar spine document needle position and contrast injection associated with injection procedure. Signed by George Peraza MD 03/25/2017 04:30 P
--- NOTE | 2017-03-31 23:33 | ECWPNPC ---
PATIENT NAME: ROSHAN WOODS : 1965 GENDER: FEMALE VISIT DATE: 03/25/2017 DISCHARGE DATE: 03/25/17 1606 VISIT LOCKED DATE TIME: PHYSICIAN: ABBI MONTERO RESOURCE: ABBI MONTERO REASON FOR APPOINTMENT 1. RF LEFT LUMBAR HISTORY OF PRESENT ILLNESS HISTORY OF PRESENT ILLNESS: PAIN THE PATIENT DESCRIBES THE PAIN... FALL RISK SCREENING: SCREENING :NO FALLS IN THE PAST YEAR CURRENT MEDICATIONS TAKING ESTRACE 2 GRAMS VAGINAL 2 TIMES A WEEK TAKING PAIN RELIEVING RUB CREAM 1 DOSE EXTERNALLY NEEDED/ TAKING VENTOLIN HFA AEROSOL SOLUTION 2 PUFFS NEEDED INHALATION EVERY 4 HOURS NEEDED, NOTES: 03-16-17899 TAKING VITAMIN D 10737 UNIT CAPSULE 1 CAPSULE ORALLY ONCE A WEEK, NOTES: 03-24-17899 TAKING SUCRALFATE 1 GM TABLET 1 TABLET ON AN EMPTY STOMACH ORALLY FOUR TIMES A DAY, NOTES: 03-24-172099 TAKING SYNTHROID 75 MCG TABLET TAKE ONE TABLET BY MOUTH EVERY MORNING ON AN EMPTY STOMACH , NOTES: 03-24-17899 TAKING LOSARTAN POTASSIUM 50 MG TABLET 1 TABLET ORALLY DAILY, NOTES: 03-24-17899 TAKING BACLOFEN 20 MG TABLET 1 CAP(S) ORALLY Q6H NEEDED, NOTES: 03-24-17899 TAKING HYDROXYCHLOROQUINE SULFATE 200 MG TABLET 1 TABLET WITH FOOD OR MILK ORALLY TWICE A DAY, NOTES: 03-24-17899 TAKING FLONASE INHALER 2 SPRAY IN EACH NOSTRIL NASALLY ONCE A DAY NEEDED, NOTES: 03-24-172099 TAKING ZYRTEC 10 MG TABLET 1 TABLET NEEDED ORALLY ONCE A DAY, NOTES: 03-24-17899 TAKING IMITREX 50 MG TABLET 1 TAB ORALLY NEEDED/ FOR MIGRAINES 2-3 MIGRAINES PER MONTH, NOTES: 03-16-17899 TAKING OMEPRAZOLE 40 MG CAPSULE DELAYED RELEASE 1 CAPSULE ORALLY ONCE A DAY, NOTES: 03-24-17899 TAKING HYDROCODONE-ACETAMINOPHEN 10-325 MG TABLET 1/2 TO 1 TAB ORALLY Q6-8 H MDD3, NOTES: 03-24-172099 TAKING FENTANYL 25 MCG/HR PATCH 72 HOUR 1 PATCH TO SKIN TRANSDERMAL 1 PATCH Y78N=TMC, NOTES: 03-24-172099 TAKING HUMIRA 10 MG/0.2ML PREFILLED SYRINGE KIT SUBCUTANEOUS , NOTES: 03-20-17 NOT-TAKING OMEPRAZOLE 40 MG CAPSULE DELAYED RELEASE 1 CAPSULE ORALLY DAILY NOT-TAKING PROBIOTIC CAPSULE ORALLY DAILY NOT-TAKING POTASSIUM CHLORIDE 10 MEQ 3 TABS ORALLY DAILY NOT-TAKING DOCUSATE SODIUM 100 MG CAPSULE ORALLY ONCE A DAY NEEDED MEDICATION LIST REVIEWED AND RECONCILED WITH THE PATIENT PAST MEDICAL HISTORY LUPUS RA SLEEP APNEA FIBROMYALGIA HYPERTENSION GERD CHRONIC BACK PROBLEMS (BULDGING DISC) SOB WHEN IN SEVERE BACK PAIN USES VENTOLIN INHALER COLONOSCOPY WITH EGD 2014 & 2016 ALLERGIES N.K.D.A. SURGICAL HISTORY TONSILLECTOMY 1980 HYSTERECTOMY, RIGHT OVARY 2004 LEFT ANKLE FX REPAIR 2001 LEFT ANKLE SCREW REMOVED 2002 RECTOCELE REPAIR 2013 RECTOCELE MESH REMOVAL 2015 HOSPITALIZATION/MAJOR DIAGNOSTIC PROCEDURE TWICE FOR CELLULITUS MOST RESCENTLY 3YEARS AGO ABOVE FOR SURGURIES POSSIBLE JAYME SAMPSON 2010 REVIEW OF SYSTEMS REVIEWED BY: PROVIDER: . CONSTITUTIONAL: ANY CHANGE IN YOUR MEDICAL CONDITION? NO . CHILLS NO . FEVER NO . INFECTION: DO YOU HAVE NEW INFECTIONS? NO . DO YOU HAVE HISTORY OF MRSA? NO . MUSCULOSKELETAL: ANY NEW PATTERNS OF PAIN OR NUMBNESS? NO . GASTROENTEROLOGY: ANY NEW CHANGE IN BOWEL CONTROL? NO . GENITOURINARY: ANY NEW CHANGE IN BLADDER CONTROL? NO . IS THERE A CHANCE YOU COULD BE ? NO . HEMATOLOGY/LYMPH: DO YOU TAKE ANY BLOOD THINNERS? (FOR EXAMPLE- COUMADIN, PLAVIX, AGGRENOX, PLATEL, PRADAXA, OR XARELTO) NO . WHEN WAS YOUR LAST DOSE? DATE: TIME: . NEUROLOGY: HAVE YOU FALLEN IN THE PAST 6 MONTHS? NO . ANY NEW EXTREMITY NUMBNESS OR WEAKNESS? NO . CARDIOLOGY: DO YOU HAVE A PACEMAKER OR DEFIBRILLATOR? NO . RESPIRATORY: HAVE YOU BEEN SICK IN THE PAST WEEK? NO . FEVER NO . FLU LIKE SYMPTOMS? NO . COUGH NO . INTEGUMENTARY: DO YOU HAVE ANY RASHES OR OPEN SORES? NO . ALLERGIC/IMMUNO: ARE YOU ALLERGIC TO SHELLFISH OR IV DYE? NO . ANY NEW ALLERGIES? NO . PSYCHIATRIC: DO YOU HAVE THOUGHTS OF HURTING YOURSELF OR SOMEONE ELSE? NO . ARE YOU ABUSED, NEGLECTED, OR IN AN UNSAFE ENVIRONMENT? NO . ENDOCRINOLOGY: ARE YOU DIABETIC? NO . OTHER: DO YOU NEED ANY PRESCRIPTIONS? NO . IF YES, PLEASE LIST: ____ . ANY NEW PROBLEMS WITH YOUR MEDICATIONS? NO . WHEN DID YOU LAST EAT? ____LAST NIGHT11 PM . WHEN DID YOU LAST DRINK? 1100 LAST NIGHT WATER____ . WHAT DID YOU LAST DRINK? ____WATER . NAME OF PERSON DRIVING YOU HOME? ____GERONIMO MCKINNON . DO YOU HAVE ANY OTHER QUESTIONS OR CONCERNS NO . VITAL SIGNS WT 268.2 LBS, HT 64.5 IN, BMI 45.32 INDEX, BP 134/79 MM HG, HR 90 /MIN, RR 16 /MIN, TEMP 96.3 F, OXYGEN SAT % 94%, NA INITIALS TL 1134, REVIEWED BY: KG. ASSESSMENTS SPONDYLOSIS WITHOUT MYELOPATHY OR RADICULOPATHY, LUMBAR REGION - M47.816 (PRIMARY) SPONDYLOSIS WITHOUT MYELOPATHY OR RADICULOPATHY, LUMBOSACRAL REGION - M47.817 PROCEDURES PN RADIOFREQUENCY PRE PROCEDURE DIAGNOSES 1. LUMBAR SPONDYLOSIS. 2. LUMBOSACRAL SPONDYLOSIS POST PROCEDURE DIAGNOSES 1. LUMBAR SPONDYLOSIS. 2. LUMBOSACRAL SPONDYLOSIS PROCEDURE LEFT L4-L5 AND LEFT L5-S1 LUMBAR FACET RADIOFREQUENCY SURGEON DR. ABBI MONTERO HYDRAULIC PILE HAMMER OPERATOR NONE ANESTHESIA LOCAL PRE PROCEDURE REPORT THE PATIENT HAS HISTORY OF CHRONIC LOW BACK PAIN. I EVALUATE THE PATIENT AND REVIEWED THE CHART. I WENT OVER THE RISKS, ALTERNATIVES, AND BENEFITS ASSOCIATED WITH THIS PROCEDURE. THE PATIENT WOULD LIKE TO PROCEED AND GIVE CONSENT TO PERFORMED THE PROCEDURE. THE PATIENT DENIES UNEXPLAINABLE WEIGHT LOSS, FEVER, CHILLS, OR NEW CHANGES IN URINARY OR BOWEL CONTROL DESCRIPTION OF PROCEDURE THE PATIENT WAS BROUGHT TO THE PROCEDURE ROOM AND PLACED IN THE PRONE POSITION. THE LUMBOSACRAL AREA WAS CLEANED WITH CHLORAPREP SOLUTION AND DRAPED ASEPTICALLY. THE PROCEDURE WAS DONE UNDER STERILE CONDITIONS. I CHECKED LATERALITY AND THE LEVEL WHERE THE PROCEDURE WAS GOING TO BE PERFORMED WITH THE PATIENT AND THE SUPPORTING STAFF AT THE MOMENT OF THE TIME OUT IN THE PROCEDURE ROOM. UNDER FLUOROSCOPIC GUIDANCE, TARGETS WERE SELECTED AT THE INTERSECTION OF THE LEFT TRANSVERSE PROCESS OF L4, L5 AND ALA OF S1 WITH ITS RESPECTIVE SUPERIOR ARTICULAR PROCESS. LIDOCAINE WAS USED TO NUMB THE SKIN AND THE SUBCUTANEOUS TISSUE BELOW IT. RADIOFREQUENCY NEEDLES 22-GAUGE 15 CM LONG WITH 10 MM ACTIVE CURVE TIP WERE ADVANCED UNDER FLUOROSCOPIC GUIDANCE AND FOLLOWING PATIENT FEEDBACK UNTIL THE TARGET AREA WAS REACHED. POSITION OF THE NEEDLES WAS VERIFIED WITH AP AND LATERAL VIEWS. AFTER PROPER POSITION OF THE NEEDLE WAS ACHIEVED, WE WORKED WITH THE LEFT SELECTED MEDIAN BRANCHES OF L3, L4 AND THE DORSAL RAMI OF L5. WE MEASURED THE CORRESPONDING IMPEDANCES, SENSORY STIMULATION AND MOTOR RESPONSES INDICATED IN THE RADIOFREQUENCY WORK SHEET. POSITION OF THE NEEDLES WAS VERIFIED AGAIN WITH AP AND LATERAL VIEWS. LIDOCAINE 1%, 2 ML, WAS INJECTED AT EACH LEVEL. RADIOFREQUENCY WAS DONE AT EACH LEVEL AT 80 DEGREES FOR 90 SECONDS. AFTER RADIOFREQUENCY WAS DONE, THE PATIENT RECEIVED BUPIVACAINE 0.125% 1 CC WITH KENALOG 5 MG AT EACH SITE. THERE WAS NO EVIDENCE OF BLOOD, PARESTHESIA OR CEREBROSPINAL FLUID DURING THE PROCEDURE. THE PATIENT WAS SENT TO THE RECOVERY ROOM. THE PATIENT WAS MOVING THE EXTREMITIES AND DOING WELL. THERE WAS NO COMPLICATION DURING THE PROCEDURE. FLUOROSCOPY TIME WAS 1 MINUTE 17 SECONDS POST PROCEDURE NOTE THE PATIENT WILL BE SEEN IN A FOLLOW UP IN THE NEXT FEW WEEKS. INSTRUCTIONS WERE GIVEN, QUESTIONS WERE ANSWERED, AND THE PATIENT EXPRESSED UNDERSTANDING AND AGREES WITH THE PLAN. I, MICHAEL ROBISON, DOCUMENTED THE ABOVE INFORMATION ACTING A SCRIBE FOR DR. MONTERO. I HAVE REVIEWED THE ABOVE DOCUMENT, WRITTEN BY MICHAEL BROOKS AND I VERIFY THAT IT IS ACCURATE DIAGNOSTIC IMAGING [facility] FACET BLOCK (PAIN)[id number] PROCEDURE CODES 37952 DESTROY LUMB/SAC FACET JNT 91301 DESTROY L/S FACET JNT ADDL 6045F RADXPS IN END [id number] PXD DISPOSITION & COMMUNICATION FOLLOW UP 3 WEEKS ELECTRONICALLY SIGNED BY ABBI MONTERO MD ON 03/31/2017 AT 10:02 PM EDT DISCLAIMER : THIS IS A VISIT SUMMARY EXTRACTED FROM THE [employer] CHART. IT IS NOT A COPY OF THE [employer] [facility] PROGRESS NOTE. MTDD
== END ==
LOC: M PAIN 11:40
PROVIDERS: ATTEND Anesthesiology
DX: G89.29 Other chronic pain (principal); M47.816 Spondylosis without myelopathy or radiculopathy, lumbar region; M47.817 Spondylosis without myelopathy or radiculopathy, lumbosacral region; M32.9 Systemic lupus erythematosus, unspecified; I15.8 Other secondary hypertension; M06.9 Rheumatoid arthritis, unspecified; G47.30 Sleep apnea, unspecified; M79.7 Fibromyalgia; K21.0 Gastro-esophageal reflux disease with esophagitis; E03.9 Hypothyroidism, unspecified; E55.9 Vitamin D deficiency, unspecified; G43.909 Migraine, unspecified, not intractable, without status migrainosus; J30.9 Allergic rhinitis, unspecified; Z79.891 Long term (current) use of opiate analgesic; Z79.899 Other long term (current) drug therapy

== ENCOUNTER → 2017-04-08 | Outpatient (CLI) | payer OTHER, MEDICAID ==
[~2017-04-08] MED LIST changes: -BUPIVACAINE HCL 0.25% 30 ML VIAL As Ordered ONE; -ISOVUE-M 300 61% 15ML VIAL (Q9967) As Ordered ONE; -LIDOCAINE 1% SDV INJ 30 ML VIAL As Ordered ONE; -TRIAMCINOLONE ACETONIDE SUSP 40 MG/ML VIAL (J3301) As Ordered ONE
--- NOTE | 2017-05-03 01:24 | ECWPNPC ---
PATIENT NAME: ROSHAN WOODS : 1965 GENDER: FEMALE VISIT DATE: 04/08/2017 DISCHARGE DATE: 04/08/17 1511 VISIT LOCKED DATE TIME: PHYSICIAN: LAUREN DE LA ROSA RESOURCE: LAUREN DE LA ROSA REASON FOR APPOINTMENT 1. POST PROCEDURE HISTORY OF PRESENT ILLNESS HISTORY OF PRESENT ILLNESS: HERE FOR POST PROCEDURE F/U.HAD LEFT L4/5-L5/S1 RADIOFREQUENCY ON 03-25-17.DOING WELL.RECENTLY DIAGNOSED WITH ANKYLOSING SPONDYLOSIS.RATING LOW BACK PAIN 3/10 VAS.DESCRIBES PAIN CONSTANT,ACHING AND SORE.CURRENTLY USING FENTANYL PATCH 25MCG Q72H AND HYDROCODONE 10/325 PRN.REPORTS GOOD PAIN CONTROL WITH THESES MEDICATIONS AND DENIES SIDE EFFECTS. PAIN THE PATIENT DESCRIBES THE PAIN... FALL RISK SCREENING: SCREENING :NO FALLS IN THE PAST YEAR CURRENT MEDICATIONS TAKING ESTRACE 2 GRAMS VAGINAL 2 TIMES A WEEK TAKING PAIN RELIEVING RUB CREAM 1 DOSE EXTERNALLY NEEDED/ TAKING VENTOLIN HFA AEROSOL SOLUTION 2 PUFFS NEEDED INHALATION EVERY 4 HOURS NEEDED TAKING VITAMIN D 06229 UNIT CAPSULE 1 CAPSULE ORALLY ONCE A WEEK TAKING SUCRALFATE 1 GM TABLET 1 TABLET ON AN EMPTY STOMACH ORALLY FOUR TIMES A DAY TAKING SYNTHROID 75 MCG TABLET TAKE ONE TABLET BY MOUTH EVERY MORNING ON AN EMPTY STOMACH TAKING LOSARTAN POTASSIUM 50 MG TABLET 1 TABLET ORALLY DAILY TAKING BACLOFEN 20 MG TABLET 1 CAP(S) ORALLY Q6H NEEDED TAKING HYDROXYCHLOROQUINE SULFATE 200 MG TABLET 1 TABLET WITH FOOD OR MILK ORALLY TWICE A DAY TAKING FLONASE INHALER 2 SPRAY IN EACH NOSTRIL NASALLY ONCE A DAY NEEDED TAKING ZYRTEC 10 MG TABLET 1 TABLET NEEDED ORALLY ONCE A DAY TAKING IMITREX 50 MG TABLET 1 TAB ORALLY NEEDED/ FOR MIGRAINES 2-3 MIGRAINES PER MONTH TAKING OMEPRAZOLE 40 MG CAPSULE DELAYED RELEASE 1 CAPSULE ORALLY ONCE A DAY TAKING HYDROCODONE-ACETAMINOPHEN 10-325 MG TABLET 1/2 TO 1 TAB ORALLY Q6-8 H MDD3 TAKING FENTANYL 25 MCG/HR PATCH 72 HOUR 1 PATCH TO SKIN TRANSDERMAL 1 PATCH G44S=SIP TAKING HUMIRA 10 MG/0.2ML PREFILLED SYRINGE KIT SUBCUTANEOUS NOT-TAKING OMEPRAZOLE 40 MG CAPSULE DELAYED RELEASE 1 CAPSULE ORALLY DAILY NOT-TAKING PROBIOTIC CAPSULE ORALLY DAILY NOT-TAKING POTASSIUM CHLORIDE 10 MEQ 3 TABS ORALLY DAILY NOT-TAKING DOCUSATE SODIUM 100 MG CAPSULE ORALLY ONCE A DAY NEEDED MEDICATION LIST REVIEWED AND RECONCILED WITH THE PATIENT PAST MEDICAL HISTORY LUPUS RA SLEEP APNEA FIBROMYALGIA HYPERTENSION GERD CHRONIC BACK PROBLEMS (BULDGING DISC) SOB WHEN IN SEVERE BACK PAIN USES VENTOLIN INHALER COLONOSCOPY WITH EGD 2014 & 2016 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 SURGICAL HISTORY TONSILLECTOMY 1980 HYSTERECTOMY, RIGHT OVARY 2005 LEFT ANKLE FX REPAIR 2001 LEFT ANKLE SCREW REMOVED 2002 RECTOCELE REPAIR 2012 RECTOCELE MESH REMOVAL 2014 SOCIAL HISTORY GENERAL: TOBACCO USE ARE YOU A:NONSMOKER NEVER SMOKER BMI CARE GOAL FOLLOW-UP ABOVE NORMAL BMI FOLLOW-UPDIETARY NEEDS EDUCATION, EXERCISE PROMOTION: STRENGTH TRAINING ALCOHOL SCREENING DID YOU HAVE A DRINK CONTAINING ALCOHOL IN THE PAST YEAR?NO POINTS0 INTERPRETATIONNEGATIVE RECREATIONAL DRUG USE: NEVER DRUG USE?NO CAFFEINE CAFFEINE USE?YES 3 /DAY SEXUAL HX HAD SEX IN THE LAST 12 MONTHS (VAGINAL, ORAL, OR ANAL)?YES WITHMEN ONLY USE PROTECTION?NO PREVENTION STRATEGIES DISCUSSED:OTHER HAVE YOU EVER HAD AN STD?NO LMP:OVER 20 YEARS HIV / HEP-C SCREENING HIV TEST OFFERED TO PATIENT:YES DATE OFFERED:10/10/2016 TEST ACCEPTED:NO REASON:PATIENT DECLINED HAD SCREENING IN THE PAST. HEP-C TEST OFFERED TO PATIENT:YES DATE OFFERED:10/10/2016 TEST ACCEPTED:NO REASON:PATIENT DECLINED OCCUPATION: HOMEMAKER. EXERCISE: NONE. MARITAL STATUS: SINGLE. OTHERS AT HOME: LIVES WITH FRIEND. SCIENTOLOGY [id number] [employer]ISM LANGUAGE NEPALESE. EDUCATION 12TH GRADUATE 2 YEARS COLLEGE. LEARNING BARRIERS / SPECIAL NEEDS CHANGE FROM LAST VISIT?NO BARRIERS TO LEARNING?NO HEARING IMPAIRED?NO VISION IMPAIRED?YES :CORRECTIVE LENSES COGNITIVELY IMPAIRED?NO READINESS TO LEARN?YES LEARNING PREFERENCES?NO LEARNING CAPABILITIES PRESENT?YES EMOTIONAL BARRIERS?NO SPECIAL DEVICES?NO ARCHITECTURE DEPARTMENT CHAIR NEEDED?NO NEW PATIENT PAIN DIARY TODAY'S VISIT NOTES, FROM 0-10, WHAT LEVEL IS YOUR PAIN TODAY? 0. PAIN CLINIC PFS, CLERGY, PUBLIC HEALTH REFERRALS PFS REFERRAL NEEDED?NO CLERGY REFERRAL NEEDED?NO PUBLIC HEALTH REFERRAL NEEDED?NO HAS THE PATIENT BEEN EDUCATED REGARDING HIS/HER PLAN OF CARE?YES HAS THE PATIENT BEEN EDUCATED REGARDING PAIN, THE RISK FOR PAIN, THE IMPORTANCE OF EFFECTIVE PAIN MANAGEMENT, AND THE PAIN ASSESSMENT PROCESS?YES HOSPITALIZATION/MAJOR DIAGNOSTIC PROCEDURE TWICE FOR CELLULITUS MOST RESCENTLY 3YEARS AGO ABOVE FOR SURGURIES POSSIBLE JAYME SAMPSON 2010 REVIEW OF SYSTEMS REVIEWED BY: PROVIDER: LAUREN ALEXANDRA . CONSTITUTIONAL: ANY CHANGE IN YOUR MEDICAL CONDITION? NO . CHILLS NO . FEVER NO . INFECTION: DO YOU HAVE NEW INFECTIONS? NO . DO YOU HAVE HISTORY OF MRSA? NO . MUSCULOSKELETAL: ANY NEW PATTERNS OF PAIN OR NUMBNESS? NO, PT STATES SHE IS HERE FOR RF F/U. PAIN PRE PROCEDURE WAS 6/10, TODAY PAIN IS 3/10 . GASTROENTEROLOGY: ANY NEW CHANGE IN BOWEL CONTROL? NO . GENITOURINARY: ANY NEW CHANGE IN BLADDER CONTROL? NO . IS THERE A CHANCE YOU COULD BE ? NO . HEMATOLOGY/LYMPH: DO YOU TAKE ANY BLOOD THINNERS? (FOR EXAMPLE- COUMADIN, PLAVIX, AGGRENOX, PLATEL, PRADAXA, OR XARELTO) NO . WHEN WAS YOUR LAST DOSE? DATE: TIME: . NEUROLOGY: HAVE YOU FALLEN IN THE PAST 6 MONTHS? NO . ANY NEW EXTREMITY NUMBNESS OR WEAKNESS? NO . CARDIOLOGY: DO YOU HAVE A PACEMAKER OR DEFIBRILLATOR? NO . RESPIRATORY: HAVE YOU BEEN SICK IN THE PAST WEEK? NO . FEVER NO . FLU LIKE SYMPTOMS? NO . COUGH NO . INTEGUMENTARY: DO YOU HAVE ANY RASHES OR OPEN SORES? NO . ALLERGIC/IMMUNO: ARE YOU ALLERGIC TO SHELLFISH OR IV DYE? NO . ANY NEW ALLERGIES? NO . PSYCHIATRIC: DO YOU HAVE THOUGHTS OF HURTING YOURSELF OR SOMEONE ELSE? NO . ARE YOU ABUSED, NEGLECTED, OR IN AN UNSAFE ENVIRONMENT? NO . ENDOCRINOLOGY: ARE YOU DIABETIC? NO . OTHER: DO YOU NEED ANY PRESCRIPTIONS? NO . IF YES, PLEASE LIST: ____ . ANY NEW PROBLEMS WITH YOUR MEDICATIONS? NO . WHEN DID YOU LAST EAT? ____ . WHEN DID YOU LAST DRINK? ____ . WHAT DID YOU LAST DRINK? ____ . NAME OF PERSON DRIVING YOU HOME? ____ . DO YOU HAVE ANY OTHER QUESTIONS OR CONCERNS NO . VITAL SIGNS WT 269 LBS, HT 64.5 IN, BMI 45.46 INDEX, BP 145/98 MM HG, HR 73 /MIN, RR 18 /MIN, TEMP 97.0 F, OXYGEN SAT % 98%, NA INITIALS SC 14:18. EXAMINATION GENERAL EXAMINATION: LUNGS:LUNG SOUNDS ARE CLEAR. HEART:HEART RATE REGULAR. MUSCULOSKELETAL:PALPATION: POSITIVE FOR PAIN OVER L/S SPINE. POSITIVE FOR PAIN OVER L/S PARASPINALS.POINT TENDERNESS OVER RIGHT T8-10 AXIAL AND PARASPINAL.POINT TENDERNESS OVER BILATERAL SIJ.. DIAGNOSTIC:MRI L/S SPINE 2015-REVIEWED.. 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 (PRIMARY) SPONDYLOSIS WITHOUT MYELOPATHY OR RADICULOPATHY, LUMBOSACRAL REGION - M47.817 CHRONIC PRESCRIPTION OPIATE USE - Z79.891 LUPUS - M32.9 TREATMENT LUMBAR SPONDYLOLYSIS REFILL HYDROCODONE-ACETAMINOPHEN TABLET, 10-325 MG, 1/2 TO 1 TAB, ORALLY, Q6-8 H MDD3, 30 DAY(S), 90, REFILLS 0 REFILL FENTANYL PATCH 72 HOUR, 25 MCG/HR, 1 PATCH TO SKIN, TRANSDERMAL, 1 PATCH S61F=SAO, 30 DAY(S), 10, REFILLS 0 NOTES: ISTOP REGISTRY REVIEWED AND DEMNOSTRATES COMPLLIANCE. BRINGS IN MEDICATIONS WHICH IS APPROPRIATE FOR WHAT WAS DISPENSED. RECENT URINE TOXICOLOGY REVIEWED. NO UNAUTHORIZED MEDICATIONS. NO ILLICIT SUBSTANCES AND PRESCRIBED MEDICATIONS WERE PRESENT. URINE TOX TODAY, RISKS AND BENEFITS OF NARCOTIC/OPIOD MEDICATIONS WERE REVIEWED WITH PATIENT - THIS INCLUDES BUT IS NOT LIMITED TO RISK OF DEPENDANCE/DEVELOPMENT OF ADDICTION, MOOD DISTURBANCE AND DEPRESSION, OSTEOPOROSIS, HORMONAL AND LABIDAL CHANGES, RESPIRATORY DEPRESSION AND . PATIENT IS ADVISED NOT TO DRIVE WHILE ON THESE MEDICATIONS. PROCEDURE CODES FA211 ESTABILISHED PATIENT NEW [facility] CHARGE DISPOSITION & COMMUNICATION FOLLOW UP 2 MONTHS ELECTRONICALLY SIGNED BY NASRIN SLAUGHTER ON 05/01/2017 AT 05:06 PM EDT DISCLAIMER : THIS IS A VISIT SUMMARY EXTRACTED FROM THE [facility] CHART. IT IS NOT A COPY OF THE [facility] PROGRESS NOTE. OZZIE
== END ==
LOC: M PAIN 14:40
PROVIDERS: ATTEND Nurse Practitioner Family
DX: M43.06 Spondylolysis, lumbar region (principal); M47.817 Spondylosis without myelopathy or radiculopathy, lumbosacral region; M32.9 Systemic lupus erythematosus, unspecified; Z79.891 Long term (current) use of opiate analgesic; Z79.899 Other long term (current) drug therapy

== ENCOUNTER → 2017-05-14 | Outpatient (CLI) | payer OTHER, MEDICAID ==
--- NOTE | 2017-05-14 20:36 | REP ---
Clinical: Foreign body. Technique: Two supine views of the abdomen and pelvis. Findings: Bowel gas pattern is nonspecific and without obstruction or perforation. No obvious foreign body is appreciated. No organomegaly. No abnormal calcifications. Skeletal structures demonstrate age-related changes. Impression: Nonspecific bowel gas pattern without obvious foreign body appreciated. Signed by Tung Blair MD 05/14/2017 08:28 P
== END ==
LOC: M LAB 14:36
PROVIDERS: ATTEND Family Medicine
DX: T18.4XXA Foreign body in colon, initial encounter (principal); Y92.89 Other specified places as the place of occurrence of the external cause

== ENCOUNTER → 2017-05-17 | Outpatient (REF) | payer OTHER ==
[2017-05-17 13:13] LABS: ALBUMIN 3.9 GM/DL (3.2-5.2); ALBUMIN/GLOBULIN RATIO 1.08 (1.00-1.93); ALKALINE PHOSPHATASE 71 U/L (45-117); ALT/SGPT 32 U/L (12-78); ANION GAP 10 MEQ/L (8-16); AST/SGOT 21 U/L (15-37); BILIRUBIN,TOTAL 0.7 MG/DL (0.2-1.0); BLOOD UREA NITROGEN 8 MG/DL (7-18); CALCIUM LEVEL 8.6 MG/DL (8.5-10.1); CARBON DIOXIDE LEVEL 28 MEQ/L (21-32); CHLORIDE LEVEL 104 MEQ/L (98-107); CREATININE FOR GFR 0.85 MG/DL (0.55-1.02); FREE T4 1.36 NG/DL (0.76-1.46); GLOMERULAR FILTRATION RATE > 60.0 (>51); GLUCOSE, FASTING 100 MG/DL (70-105); POTASSIUM SERUM 3.8 MEQ/L (3.5-5.1); SODIUM LEVEL 142 MEQ/L (136-145); TOTAL PROTEIN 7.5 GM/DL (6.4-8.2)
== END ==
LOC: M SFHCPLAZ 08:04
PROVIDERS: ATTEND Nurse Practitioner Family
DX: I10 Essential (primary) hypertension (principal); E03.9 Hypothyroidism, unspecified

== ENCOUNTER → 2017-06-03 | Outpatient (CLI) | payer OTHER ==
--- NOTE | 2017-06-05 03:03 | ECWPNPC ---
PATIENT NAME: ROSHAN WOODS : 1965 GENDER: FEMALE VISIT DATE: 06/03/2017 DISCHARGE DATE: 06/03/17 1032 VISIT LOCKED DATE TIME: PHYSICIAN: LAUREN DE LA ROSA RESOURCE: LAUREN DE LA ROSA REASON FOR APPOINTMENT 1. BACK HISTORY OF PRESENT ILLNESS HISTORY OF PRESENT ILLNESS: HERE FOR /MEDICINE MANAGEMENT OF CHRONIC LBP AND LEFT NECK PAIN. F/U.HAD LEFT L4/5-L5/S1 RADIOFREQUENCY ON 03-25-17.DOING WELL.RECENTLY DIAGNOSED WITH ANKYLOSING SPONDYLOSIS.RATING LOW BACK PAIN 5/10 VAS.DESCRIBES PAIN CONSTANT,ACHING AND SORE.CURRENTLY USING FENTANYL PATCH 25MCG Q72H AND HYDROCODONE 10/325 PRN.REPORTS GOOD PAIN CONTROL WITH THESES MEDICATIONS AND DENIES SIDE EFFECTS. PAIN THE PATIENT DESCRIBES THE PAIN... THE PATIENT DESCRIBES THE PAIN... FALL RISK SCREENING: SCREENING :NO FALLS IN THE PAST YEAR CURRENT MEDICATIONS TAKING ESTRACE 2 GRAMS VAGINAL 2 TIMES A WEEK TAKING PAIN RELIEVING RUB CREAM 1 DOSE EXTERNALLY NEEDED/ TAKING VENTOLIN HFA AEROSOL SOLUTION 2 PUFFS NEEDED INHALATION EVERY 4 HOURS NEEDED TAKING VITAMIN D 30372 UNIT CAPSULE 1 CAPSULE ORALLY ONCE A WEEK, NOTES: WHEN SHE REMEMBERS 05/2017 TAKING SUCRALFATE 1 GM TABLET 1 TABLET ON AN EMPTY STOMACH ORALLY DAILY TAKING BACLOFEN 20 MG TABLET 1 CAP(S) ORALLY Q6H NEEDED TAKING HYDROXYCHLOROQUINE SULFATE 200 MG TABLET 1 TABLET WITH FOOD OR MILK ORALLY TWICE A DAY TAKING HUMIRA 10 MG/0.2ML PREFILLED SYRINGE KIT 40 MGS SUBCUTANEOUS EVERY 2 WEEKS TAKING HYDROCODONE-ACETAMINOPHEN 10-325 MG TABLET 1/2 TO 1 TAB ORALLY Q6-8 H MDD3 TAKING FENTANYL 25 MCG/HR PATCH 72 HOUR 1 PATCH TO SKIN TRANSDERMAL 1 PATCH F54Y=SHA TAKING OMEPRAZOLE 40 MG CAPSULE DELAYED RELEASE 1 CAPSULE ORALLY ONCE A DAY TAKING LOSARTAN POTASSIUM 50 MG TABLET 1 TABLET ORALLY DAILY TAKING IMITREX 50 MG TABLET 1 TAB ORALLY NEEDED/ FOR MIGRAINES 2-3 MIGRAINES PER MONTH TAKING FLONASE INHALER 2 SPRAY IN EACH NOSTRIL NASALLY ONCE A DAY NEEDED TAKING ZYRTEC 10 MG TABLET 1 TABLET NEEDED ORALLY ONCE A DAY TAKING SYNTHROID 100 MCG TABLET 1 TABLET ON AN EMPTY STOMACH IN THE MORNING ORALLY ONCE A DAY MEDICATION LIST REVIEWED AND RECONCILED WITH THE PATIENT PAST MEDICAL HISTORY LUPUS RA SLEEP APNEA FIBROMYALGIA HYPERTENSION GERD CHRONIC BACK PROBLEMS (BULDGING DISC) SOB WHEN IN SEVERE BACK PAIN USES VENTOLIN INHALER COLONOSCOPY WITH EGD 2015 & 2017 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 REVIEW OF SYSTEMS REVIEWED BY: PROVIDER: LAUREN ALEXANDRA . CONSTITUTIONAL: ANY CHANGE IN YOUR MEDICAL CONDITION? NO . CHILLS NO . FEVER NO . INFECTION: DO YOU HAVE NEW INFECTIONS? NO . DO YOU HAVE HISTORY OF MRSA? NO . MUSCULOSKELETAL: ANY NEW PATTERNS OF PAIN OR NUMBNESS? NO . GASTROENTEROLOGY: ANY NEW CHANGE IN BOWEL CONTROL? NO . GENITOURINARY: ANY NEW CHANGE IN BLADDER CONTROL? NO . IS THERE A CHANCE YOU COULD BE ? NO . HEMATOLOGY/LYMPH: DO YOU TAKE ANY BLOOD THINNERS? (FOR EXAMPLE- COUMADIN, PLAVIX, AGGRENOX, PLATEL, PRADAXA, OR XARELTO) NO . WHEN WAS YOUR LAST DOSE? DATE: TIME: . NEUROLOGY: HAVE YOU FALLEN IN THE PAST 6 MONTHS? NO . ANY NEW EXTREMITY NUMBNESS OR WEAKNESS? NO . CARDIOLOGY: DO YOU HAVE A PACEMAKER OR DEFIBRILLATOR? NO . RESPIRATORY: HAVE YOU BEEN SICK IN THE PAST WEEK? NO . FEVER NO . FLU LIKE SYMPTOMS? NO . COUGH NO . INTEGUMENTARY: DO YOU HAVE ANY RASHES OR OPEN SORES? NO . ALLERGIC/IMMUNO: ARE YOU ALLERGIC TO SHELLFISH OR IV DYE? NO . ANY NEW ALLERGIES? NO . PSYCHIATRIC: DO YOU HAVE THOUGHTS OF HURTING YOURSELF OR SOMEONE ELSE? NO . ARE YOU ABUSED, NEGLECTED, OR IN AN UNSAFE ENVIRONMENT? NO . ENDOCRINOLOGY: ARE YOU DIABETIC? NO . OTHER: DO YOU NEED ANY PRESCRIPTIONS? NO . IF YES, PLEASE LIST: ____ . ANY NEW PROBLEMS WITH YOUR MEDICATIONS? NO . WHEN DID YOU LAST EAT? ____ . WHEN DID YOU LAST DRINK? ____ . WHAT DID YOU LAST DRINK? ____ . NAME OF PERSON DRIVING YOU HOME? ____ . DO YOU HAVE ANY OTHER QUESTIONS OR CONCERNS NO . VITAL SIGNS WT 265 LBS, HT 64.5 IN, BMI 44.78 INDEX, BP 133/82 MM HG, HR 76 /MIN, RR 18 /MIN, TEMP 97.2 F, OXYGEN SAT % 97%, SAFE IN ENV? (Y/N) YES, NA INITIALS IN 09:55, REVIEWED BY: LIAM. EXAMINATION GENERAL EXAMINATION: LUNGS:LUNG SOUNDS ARE CLEAR. HEART:HEART RATE REGULAR. MUSCULOSKELETAL:PALPATION: POSITIVE FOR PAIN OVER L/S SPINE. POSITIVE FOR PAIN OVER L/S PARASPINALS.POINT TENDERNESS OVER RIGHT T8-10 AXIAL AND PARASPINAL.POINT TENDERNESS OVER BILATERAL SIJ.. DIAGNOSTIC:MRI L/S SPINE 2015-REVIEWED.. 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 (PRIMARY) SPONDYLOSIS WITHOUT MYELOPATHY OR RADICULOPATHY, LUMBOSACRAL REGION - M47.817 CHRONIC PRESCRIPTION OPIATE USE - Z79.891 LUPUS - M32.9 TREATMENT LUMBAR SPONDYLOLYSIS REFILL HYDROCODONE-ACETAMINOPHEN TABLET, 10-325 MG, 1/2 TO 1 TAB, ORALLY, Q6-8 H MDD3, 30 DAY(S), 90, REFILLS 0 REFILL FENTANYL PATCH 72 HOUR, 25 MCG/HR, 1 PATCH TO SKIN, TRANSDERMAL, 1 PATCH I81Q=EAW, 30 DAY(S), 10, REFILLS 0 START GABAPENTIN CAPSULE, 300 MG, 1 CAPSULE, ORALLY, BID, 30 DAY(S), 60 CAPSULE, REFILLS 2 NOTES: ISTOP REGISTRY REVIEWED AND DEMNOSTRATES COMPLLIANCE. BRINGS IN MEDICATIONS WHICH IS APPROPRIATE FOR WHAT WAS DISPENSED. RECENT URINE TOXICOLOGY REVIEWED. NO UNAUTHORIZED MEDICATIONS. NO ILLICIT SUBSTANCES AND PRESCRIBED MEDICATIONS WERE PRESENT. , RISKS AND BENEFITS OF NARCOTIC/OPIOD MEDICATIONS WERE REVIEWED WITH PATIENT - THIS INCLUDES BUT IS NOT LIMITED TO RISK OF DEPENDANCE/DEVELOPMENT OF ADDICTION, MOOD DISTURBANCE AND DEPRESSION, OSTEOPOROSIS, HORMONAL AND LABIDAL CHANGES, RESPIRATORY DEPRESSION AND . PATIENT IS ADVISED NOT TO DRIVE WHILE ON THESE MEDICATIONS.NARCOTIC AGREEMENT UPDATE. PROCEDURE CODES FA211 ESTABILISHED PATIENT [facility] CHARGE DISPOSITION & COMMUNICATION FOLLOW UP 4 WEEKS 1/2 HR APT ELECTRONICALLY SIGNED BY NASRIN SLAUGHTER ON 06/04/2017 AT 09:18 AM EDT DISCLAIMER : THIS IS A VISIT SUMMARY EXTRACTED FROM THE [employer] CHART. IT IS NOT A COPY OF THE [employer] PROGRESS NOTE. MTDD
== END ==
LOC: M PAIN 09:45
PROVIDERS: ATTEND Nurse Practitioner Family
DX: G89.29 Other chronic pain (principal); M43.06 Spondylolysis, lumbar region; M47.817 Spondylosis without myelopathy or radiculopathy, lumbosacral region; M32.9 Systemic lupus erythematosus, unspecified; E03.9 Hypothyroidism, unspecified; K21.9 Gastro-esophageal reflux disease without esophagitis; E55.9 Vitamin D deficiency, unspecified; G43.909 Migraine, unspecified, not intractable, without status migrainosus; M06.9 Rheumatoid arthritis, unspecified; I10 Essential (primary) hypertension; J30.9 Allergic rhinitis, unspecified; Z79.4 Long term (current) use of insulin; Z79.891 Long term (current) use of opiate analgesic; Z79.899 Other long term (current) drug therapy

== ENCOUNTER → 2017-07-31 | Outpatient (CLI) | payer OTHER ==
--- NOTE | 2017-08-20 02:02 | ECWPNPC ---
PATIENT NAME: ROSHAN WOODS : 1965 GENDER: FEMALE VISIT DATE: 07/31/2017 DISCHARGE DATE: 07/31/17 1126 VISIT LOCKED DATE TIME: PHYSICIAN: LAUREN DE LA ROSA RESOURCE: LAUREN DE LA ROSA REASON FOR APPOINTMENT 1. NEW BODY PARTS, KENNY HIP AND NECK HISTORY OF PRESENT ILLNESS HISTORY OF PRESENT ILLNESS: HERE FOR F/U AND ADDITION OF CHRONIC NECK PAIN AND BILATERAL HIP PAIN TO EVALUATE AND TREAT.LONG HISTORY OF CHRONIC NECK PAIN THAT HAS GOTTEN WORSE OVER PAST YEAR.PAIN RADIATES INTO LEFT UPPER BACK AND ARMS.ALSO SUFFERS FROM CHRONIC BILATERAL HIP PAIN THAT HAS GOTTEN WORSE OVER THE PAST YEAR.PAIN IS AGGREVATED BY BENDING OR AFTER A LONG WALK.RATING NECK PAIN 6/10 VAS.RATING HIP PAIN 4/10 VAS.SUFFERS FROM INFLAMMATORY SPONDYLITIS,RHEUMATOID ARTHRITIS AND LUPUS.NO PRIOR HISTORY OF SURGERY.CURRENTLY USING FENTANYL PATCH 25MCG,HYDROCODONE 10/325 Q8H PRN AND GABAPENTIN 300MG BID.HAS NOTICED SOME IMPROVEMENT WITH ADDITION OF GABAPENTIN. PAIN THE PATIENT DESCRIBES THE PAIN... FALL RISK SCREENING: SCREENING :NO FALLS IN THE PAST YEAR CURRENT MEDICATIONS TAKING ESTRACE 2 GRAMS VAGINAL 2 TIMES A WEEK TAKING PAIN RELIEVING RUB CREAM 1 DOSE EXTERNALLY NEEDED/ TAKING VENTOLIN HFA AEROSOL SOLUTION 2 PUFFS NEEDED INHALATION EVERY 4 HOURS NEEDED TAKING VITAMIN D 86841 UNIT CAPSULE 1 CAPSULE ORALLY ONCE A WEEK, NOTES: WHEN SHE REMEMBERS 05/2017 TAKING SUCRALFATE 1 GM TABLET 1 TABLET ON AN EMPTY STOMACH ORALLY DAILY TAKING HYDROXYCHLOROQUINE SULFATE 200 MG TABLET 1 TABLET WITH FOOD OR MILK ORALLY TWICE A DAY TAKING HUMIRA 10 MG/0.2ML PREFILLED SYRINGE KIT 40 MGS SUBCUTANEOUS EVERY 2 WEEKS TAKING OMEPRAZOLE 40 MG CAPSULE DELAYED RELEASE 1 CAPSULE ORALLY ONCE A DAY TAKING LOSARTAN POTASSIUM 50 MG TABLET 1 TABLET ORALLY DAILY TAKING IMITREX 50 MG TABLET 1 TAB ORALLY NEEDED/ FOR MIGRAINES 2-3 MIGRAINES PER MONTH TAKING FLONASE INHALER 2 SPRAY IN EACH NOSTRIL NASALLY ONCE A DAY NEEDED TAKING ZYRTEC 10 MG TABLET 1 TABLET NEEDED ORALLY ONCE A DAY TAKING SYNTHROID 100 MCG TABLET 1 TABLET ON AN EMPTY STOMACH IN THE MORNING ORALLY ONCE A DAY TAKING GABAPENTIN 300 MG CAPSULE 1 CAPSULE ORALLY BID TAKING FEXOFENADINE HCL 180 MG TABLET 1 TABLET NEEDED ORALLY ONCE A DAY TAKING METROGEL 1 % GEL 1 APPLICATION TO AFFECTED AREA EXTERNALLY ONCE A DAY AT NIGHT TAKING METRONIDAZOLE 0.75 % GEL 1 APPLICATION TO AFFECTED AREA EXTERNALLY NIGHTLY TAKING BACLOFEN 20 MG TABLET 1 CAP(S) ORALLY Q6H NEEDED TAKING HYDROCODONE-ACETAMINOPHEN 10-325 MG TABLET 1/2 TO 1 TAB ORALLY Q6-8 H MDD3 TAKING FENTANYL 25 MCG/HR PATCH 72 HOUR 1 PATCH TO SKIN TRANSDERMAL 1 PATCH [id number] PAST MEDICAL HISTORY RA SLEEP APNEA FIBROMYALGIA HYPERTENSION LUPUS GERD CHRONIC BACK PROBLEMS (BULDGING DISC) SOB WHEN IN SEVERE BACK PAIN USES VENTOLIN INHALER COLONOSCOPY WITH EGD 2014 & 2016 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 SURGICAL HISTORY TONSILLECTOMY 1980 HYSTERECTOMY, RIGHT OVARY 2004 LEFT ANKLE FX REPAIR 2001 LEFT ANKLE SCREW REMOVED 2002 RECTOCELE REPAIR 2012 RECTOCELE MESH REMOVAL [address] PETERSEN 2016 SOCIAL HISTORY GENERAL: TOBACCO USE ARE YOU A:NONSMOKER NEVER SMOKER BMI CARE GOAL FOLLOW-UP ABOVE NORMAL BMI FOLLOW-UPDIETARY NEEDS EDUCATION, EXERCISE PROMOTION: STRENGTH TRAINING ALCOHOL SCREENING DID YOU HAVE A DRINK CONTAINING ALCOHOL IN THE PAST YEAR?NO POINTS0 INTERPRETATIONNEGATIVE RECREATIONAL DRUG USE: NEVER DRUG USE?NO CAFFEINE CAFFEINE USE?YES 3 /DAY SEXUAL HX HAD SEX IN THE LAST 12 MONTHS (VAGINAL, ORAL, OR ANAL)?YES WITHMEN ONLY USE PROTECTION?NO PREVENTION STRATEGIES DISCUSSED:OTHER HAVE YOU EVER HAD AN STD?NO LMP:OVER 20 YEARS HIV / HEP-C SCREENING HIV TEST OFFERED TO PATIENT:YES DATE OFFERED:10/10/2016 TEST ACCEPTED:NO REASON:PATIENT DECLINED HAD SCREENING IN THE PAST. HEP-C TEST OFFERED TO PATIENT:YES DATE OFFERED:10/10/2016 TEST ACCEPTED:NO REASON:PATIENT DECLINED OCCUPATION: HOMEMAKER. EXERCISE: NONE. MARITAL STATUS: SINGLE. OTHERS AT HOME: LIVES WITH FRIEND. [employer]OD[id number] LANGUAGE MONGOLIAN. EDUCATION 12TH GRADUATE 2 YEARS COLLEGE. LEARNING BARRIERS / SPECIAL NEEDS CHANGE FROM LAST VISIT?YES EARS FEEL "STUFFY". STATES THAT SHE FELT FLLUID IN HER LEFT EAR AND TRIED TO CLEAN IT WITH A Q-TIP. WHEN SHE REMOVED THE QTIP SHE STATED THAT THERE WAS QUITE A BIT OF BLOOD ON THE QTIP. THIS CONTINUED X2 DAYS WITH EACH DAY HAVING LESS BLOOD. BARRIERS TO LEARNING?NO HEARING IMPAIRED?NO VISION IMPAIRED?YES :CORRECTIVE LENSES COGNITIVELY IMPAIRED?NO READINESS TO LEARN?YES LEARNING PREFERENCES?NO LEARNING CAPABILITIES PRESENT?YES EMOTIONAL BARRIERS?NO SPECIAL DEVICES?NO TONE CABINET ASSEMBLER NEEDED?NO NEW PATIENT PAIN DIARY TODAY'S VISIT NOTES, FROM 0-10, WHAT LEVEL IS YOUR PAIN TODAY? 0. PAIN CLINIC PFS, CLERGY, PUBLIC HEALTH REFERRALS PFS REFERRAL NEEDED?NO CLERGY REFERRAL NEEDED?NO PUBLIC HEALTH REFERRAL NEEDED?NO HAS THE PATIENT BEEN EDUCATED REGARDING HIS/HER PLAN OF CARE?YES HAS THE PATIENT BEEN EDUCATED REGARDING PAIN, THE RISK FOR PAIN, THE IMPORTANCE OF EFFECTIVE PAIN MANAGEMENT, AND THE PAIN ASSESSMENT PROCESS?YES ADVANCE DIRECTIVES HEALTH CARE PROXY?NO DO YOU HAVE A DNR?NO LIVING WILL?NO POWER OF INSTRUCTIONAL TECHNOLOGY COORDINATOR?NO HOSPITALIZATION/MAJOR DIAGNOSTIC PROCEDURE TWICE FOR CELLULITUS MOST RESCENTLY 3YEARS AGO ABOVE FOR SURGURIES POSSIBLE JAYME SAMPSON 2010 REVIEW OF SYSTEMS REVIEWED BY: PROVIDER: LAUREN ALEXANDRA . CONSTITUTIONAL: ANY CHANGE IN YOUR MEDICAL CONDITION? NO . CHILLS NO . FEVER NO . INFECTION: DO YOU HAVE NEW INFECTIONS? NO . DO YOU HAVE HISTORY OF MRSA? NO . MUSCULOSKELETAL: ANY NEW PATTERNS OF PAIN OR NUMBNESS? NO . GASTROENTEROLOGY: ANY NEW CHANGE IN BOWEL CONTROL? NO . GENITOURINARY: ANY NEW CHANGE IN BLADDER CONTROL? NO . IS THERE A CHANCE YOU COULD BE ? NO . HEMATOLOGY/LYMPH: DO YOU TAKE ANY BLOOD THINNERS? (FOR EXAMPLE- COUMADIN, PLAVIX, AGGRENOX, PLATEL, PRADAXA, OR XARELTO) NO . WHEN WAS YOUR LAST DOSE? DATE: TIME: . NEUROLOGY: HAVE YOU FALLEN IN THE PAST 6 MONTHS? NO . ANY NEW EXTREMITY NUMBNESS OR WEAKNESS? NO . CARDIOLOGY: DO YOU HAVE A PACEMAKER OR DEFIBRILLATOR? NO . RESPIRATORY: HAVE YOU BEEN SICK IN THE PAST WEEK? NO . FEVER NO . FLU LIKE SYMPTOMS? NO . COUGH NO . INTEGUMENTARY: DO YOU HAVE ANY RASHES OR OPEN SORES? NO . ALLERGIC/IMMUNO: ARE YOU ALLERGIC TO SHELLFISH OR IV DYE? NO . ANY NEW ALLERGIES? NO . PSYCHIATRIC: DO YOU HAVE THOUGHTS OF HURTING YOURSELF OR SOMEONE ELSE? NO . ARE YOU ABUSED, NEGLECTED, OR IN AN UNSAFE ENVIRONMENT? NO . ENDOCRINOLOGY: ARE YOU DIABETIC? NO . OTHER: DO YOU NEED ANY PRESCRIPTIONS? YES, GABAPENTIN . IF YES, PLEASE LIST: ____ . ANY NEW PROBLEMS WITH YOUR MEDICATIONS? NO . WHEN DID YOU LAST EAT? ____ . WHEN DID YOU LAST DRINK? ____ . WHAT DID YOU LAST DRINK? ____ . NAME OF PERSON DRIVING YOU HOME? ____ . DO YOU HAVE ANY OTHER QUESTIONS OR CONCERNS NO . VITAL SIGNS WT 270 LBS, HT 64.5 IN, BMI 45.62 INDEX, BP 140/82 MM HG, HR 79 /MIN, RR 16 /MIN, TEMP 97.4 F, OXYGEN SAT % 96, REVIEWED BY: EM. EXAMINATION GENERAL EXAMINATION: GENERAL APPEARANCE:COMFORTABLE. PSYCHAFFECT NORMAL. NECK:TRACHEA MIDLINE. NO CERVICAL OR SUPRACLAVICULAR LYMPHADENOPATHY NOTED. LUNGS:LUNG VELEZ ARE CLEAR TO AUSCULTATION BILATERALLY. GOOD MOVEMENT OF AIR. HEART:S1, S2 IN A REGULAR RATE AND RHYTHM. NO SIGNIFICANT MURMURS, RUBS OR GALLOPS NOTED. MUSCULOSKELETAL:MUSCLE STRENGTH TESTING 5/5 BILATERAL UPPER/LOWER EXTREMITIES., PALPATION: POSITIVE FOR PAIN OVER CERVICAL SPINE. POSITIVE FOR PAIN OVER CERVICAL PARSPINALS. ASSESSMENTS INFLAMMATORY SPONDYLOPATHY MANIFESTATION OF UNDERLYING DISEASE - M46.90 (PRIMARY) TREATMENT INFLAMMATORY SPONDYLOPATHY MANIFESTATION OF UNDERLYING DISEASE INCREASE GABAPENTIN CAPSULE, 300 MG, 1 CAPSULE, ORALLY, THREE TIMES DAILY, 30 DAY(S), 90, REFILLS 2 CONTINUE BACLOFEN TABLET, 20 MG, 1 CAP(S), ORALLY, Q6H NEEDED REFILL HYDROCODONE-ACETAMINOPHEN TABLET, 10-325 MG, 1/2 TO 1 TAB, ORALLY, Q6-8 H MDD3, 30 DAY(S), 90, REFILLS 0 REFILL FENTANYL PATCH 72 HOUR, 25 MCG/HR, 1 PATCH TO SKIN, TRANSDERMAL, 1 PATCH [id number], 30 DAY(S), 10, REFILLS 0 NOTES: GET OK TO [facility] [place] 18 DAYS PRE PROCEDURE AND 10 DAYS POST PROCEDURE FROM [facility] FAX #[phone], ISTOP REGISTRY REVIEWED [phone] AND DEMNOSTRATES COMPLLIANCE. BRINGS IN MEDICATIONS WHICH IS APPROPRIATE FOR WHAT WAS DISPENSED. RECENT URINE TOXICOLOGY REVIEWED. NO UNAUTHORIZED MEDICATIONS. NO ILLICIT SUBSTANCES AND PRESCRIBED MEDICATIONS WERE PRESENT. , RISKS AND BENEFITS OF NARCOTIC/OPIOD MEDICATIONS WERE REVIEWED WITH PATIENT - THIS INCLUDES BUT IS NOT LIMITED TO RISK OF DEPENDANCE/DEVELOPMENT OF ADDICTION, MOOD DISTURBANCE AND DEPRESSION, OSTEOPOROSIS, HORMONAL AND LABIDAL CHANGES, RESPIRATORY DEPRESSION AND . PATIENT IS ADVISED NOT TO DRIVE WHILE ON THESE MEDICATIONS,TRIGGER POINT INJECTION MATERIAL WAS PRINTED, REVIEWED AND GIVEN TO PT. PROCEDURE CODES FA211 ESTABILISHED PATIENT [facility] CHARGE DISPOSITION & COMMUNICATION FOLLOW UP 4 WEEKS ELECTRONICALLY SIGNED BY NASRIN SLAUGHTER ON 08/19/2017 AT 08:39 AM EST DISCLAIMER : THIS IS A VISIT SUMMARY EXTRACTED FROM THE [employer] CHART. IT IS NOT A COPY OF THE [employer] PROGRESS NOTE. OZZIE
== END ==
LOC: M PAIN 10:15
PROVIDERS: ATTEND Nurse Practitioner Family
DX: M46.90 Unspecified inflammatory spondylopathy, site unspecified (principal); M54.2 Cervicalgia; G89.29 Other chronic pain; M06.9 Rheumatoid arthritis, unspecified; E03.9 Hypothyroidism, unspecified; M32.9 Systemic lupus erythematosus, unspecified; E55.9 Vitamin D deficiency, unspecified; Z79.891 Long term (current) use of opiate analgesic; Z79.818 Long term (current) use of other agents affecting estrogen receptors and estrogen levels; Z79.899 Other long term (current) drug therapy

== ENCOUNTER → 2017-08-19 | Outpatient (REF) | payer OTHER ==
[2017-08-19 13:58] LABS: FREE T4 1.24 NG/DL (0.76-1.46)
== END ==
LOC: M SFHCPLAZ 07:51
PROVIDERS: ATTEND Nurse Practitioner Family
DX: E03.9 Hypothyroidism, unspecified (principal)

== ENCOUNTER → 2017-10-14 | Outpatient (CLI) | payer OTHER | LOC: M PAIN 14:00 | DX: M46.90 Unspecified inflammatory spondylopathy, site unspecified (principal); I10 Essential (primary) hypertension; E03.9 Hypothyroidism, unspecified; K21.9 Gastro-esophageal reflux disease without esophagitis; M06.9 Rheumatoid arthritis, unspecified; M32.9 Systemic lupus erythematosus, unspecified; Z79.891 Long term (current) use of opiate analgesic; Z79.899 Other long term (current) drug therapy | CPT/HCPCS: G0463 ==

== ENCOUNTER → 2017-11-27 | Outpatient (REF) | payer OTHER ==
[2017-11-27 12:16] LABS: ALBUMIN 3.9 GM/DL (3.2-5.2); ALBUMIN/GLOBULIN RATIO 1.26 (1.00-1.93); ALKALINE PHOSPHATASE 60 U/L (45-117); ALT/SGPT 54 U/L (12-78); ANION GAP 9 MEQ/L (8-16); AST/SGOT 52 U/L (7-37); BILIRUBIN,TOTAL 0.5 MG/DL (0.2-1.0); BLOOD UREA NITROGEN 5 MG/DL (7-18); CALCIUM LEVEL 8.7 MG/DL (8.5-10.1); CARBON DIOXIDE LEVEL 29 MEQ/L (21-32); CHLORIDE LEVEL 104 MEQ/L (98-107); CHOLESTEROL LEVEL 192 MG/DL (<200); CHOLESTEROL RISK RATIO 3.692 (<5); CREATININE FOR GFR 0.76 MG/DL (0.55-1.30); GLOMERULAR FILTRATION RATE > 60.0 (>51); GLUCOSE, FASTING 89 MG/DL (70-100); HDL CHOLESTEROL 52 MG/DL (>40); LDL CHOLESTEROL 109.6 MG/DL (<100); NON-HDL-C 140 MG/DL; POTASSIUM SERUM 4.5 MEQ/L (3.5-5.1); SODIUM LEVEL 142 MEQ/L (136-145); TRIGLYCERIDES LEVEL 152 MG/DL (<150)
[2017-11-27 12:34] LABS: MALB URINE SIEMENS 22.4 MG/L; MAU/CREAT RATIO 10.4 MCG/MG (0.0-30.0)
== END ==
LOC: M SFHCPLAZ 08:46
DX: I10 Essential (primary) hypertension (principal)

== ENCOUNTER → 2017-12-11 | Outpatient (CLI) | payer OTHER | LOC: M PAIN 15:15 | DX: M46.90 Unspecified inflammatory spondylopathy, site unspecified (principal); I10 Essential (primary) hypertension; K21.9 Gastro-esophageal reflux disease without esophagitis; E07.9 Disorder of thyroid, unspecified; E55.9 Vitamin D deficiency, unspecified; Z79.891 Long term (current) use of opiate analgesic; Z79.899 Other long term (current) drug therapy | CPT/HCPCS: G0463 ==

== ENCOUNTER → 2018-02-11 | Outpatient (CLI) | payer OTHER | LOC: M PAIN 10:30 | DX: M46.99 Unspecified inflammatory spondylopathy, multiple sites in spine (principal); G89.29 Other chronic pain; M06.9 Rheumatoid arthritis, unspecified; G47.30 Sleep apnea, unspecified; M79.7 Fibromyalgia; I10 Essential (primary) hypertension; M32.9 Systemic lupus erythematosus, unspecified; K21.9 Gastro-esophageal reflux disease without esophagitis; K50.90 Crohn's disease, unspecified, without complications; Z79.891 Long term (current) use of opiate analgesic; Z79.899 Other long term (current) drug therapy | CPT/HCPCS: G0463 ==

== ENCOUNTER → 2018-04-02 | Outpatient (REF) | payer OTHER ==
[2018-04-02 12:28] LABS: ALBUMIN 3.8 GM/DL (3.2-5.2); ALBUMIN/GLOBULIN RATIO 1.09 (1.00-1.93); ALKALINE PHOSPHATASE 68 U/L (45-117); ALT/SGPT 48 U/L (12-78); ANION GAP 8 MEQ/L (8-16); AST/SGOT 47 U/L (7-37); BILIRUBIN,TOTAL 1.1 MG/DL (0.2-1.0); BLOOD UREA NITROGEN 6 MG/DL (7-18); CALCIUM LEVEL 8.5 MG/DL (8.5-10.1); CARBON DIOXIDE LEVEL 29 MEQ/L (21-32); CHLORIDE LEVEL 105 MEQ/L (98-107); CREATININE FOR GFR 0.77 MG/DL (0.55-1.30); GLOMERULAR FILTRATION RATE > 60.0 (>51); GLUCOSE, FASTING 100 MG/DL (70-100); POTASSIUM SERUM 4.2 MEQ/L (3.5-5.1); SODIUM LEVEL 142 MEQ/L (136-145); TOTAL PROTEIN 7.3 GM/DL (6.4-8.2)
[2018-04-02 13:28] LABS: TOTAL 25(OH) VITAMIN D 32.6 NG/ML (30.0-100.0)
[2018-04-04 00:37] LABS: Lyme Disease IgG/IgM Antibodie <0.91 ISR (0.00-0.90); Lyme Disease IgM Ab Quantitati <0.80 index (0.00-0.79)
== END ==
LOC: M SFHCPLAZ 09:12
DX: M25.562 Pain in left knee (principal); E03.9 Hypothyroidism, unspecified; E55.9 Vitamin D deficiency, unspecified; I10 Essential (primary) hypertension; E66.9 Obesity, unspecified
CPT/HCPCS: 84443

== ENCOUNTER → 2018-04-22 | Outpatient (CLI) | payer OTHER | LOC: M PAIN 08:30 | DX: M46.99 Unspecified inflammatory spondylopathy, multiple sites in spine (principal); M06.9 Rheumatoid arthritis, unspecified; G47.30 Sleep apnea, unspecified; M79.7 Fibromyalgia; I10 Essential (primary) hypertension; M32.9 Systemic lupus erythematosus, unspecified; K21.9 Gastro-esophageal reflux disease without esophagitis; K50.90 Crohn's disease, unspecified, without complications; Z79.891 Long term (current) use of opiate analgesic; Z79.899 Other long term (current) drug therapy | CPT/HCPCS: G0463 ==

== ENCOUNTER → 2018-04-22 | Outpatient (REF) | payer OTHER ==
[2018-04-22 18:20] LABS: FERRITIN 36 NG/ML (8-252); IRON (FE) 76 UG/DL (50-170); PERCENT SATURATION 25.2 % (13.2-45.0); TOTAL IRON BINDING CAPACITY 301 UG/DL (250-450)
[2018-04-23 09:00] LABS: HEPATITIS B SURFACE ANTIGEN NEGATIVE (NEGATIVE)
[2018-04-23 09:21] LABS: HEPATITIS B CORE ANTIBODY IGM NEGATIVE (NEGATIVE)
[2018-04-23 09:21] LABS: HEPATITIS C VIRUS ABY INDEX 0.1 INDEX (<0.8)
[2018-04-23 09:23] LABS: HEPATITIS A ANTIBODY IGM NEGATIVE (NEGATIVE)
== END ==
LOC: M SFHCPLAZ 15:37
DX: R94.5 Abnormal results of liver function studies (principal)

== ENCOUNTER 2018-04-23 12:29 | Outpatient (RCR) | payer OTHER | END 2018-05-16 | LOC: M PT 12:29 | DX: Z51.89 Encounter for other specified aftercare (principal); M25.571 Pain in right ankle and joints of right foot | CPT/HCPCS: 97010 ==

== ENCOUNTER → 2018-04-24 | Outpatient (CLI) | payer OTHER | LOC: M RAD 06:20 | DX: K80.20 Calculus of gallbladder without cholecystitis without obstruction (principal); K76.0 Fatty (change of) liver, not elsewhere classified; R94.5 Abnormal results of liver function studies | CPT/HCPCS: 76705 ==

== ENCOUNTER 2018-04-29 07:42 | Emergency (ER) | payer OTHER ==
[2018-04-29] MEDS: NS 1,000 ML IV (08:00)
[2018-04-29] MEDS: PANTOPRAZOLE 40MG INJ (PROTONIX) (C9113) IV (08:15)
[2018-04-29 09:03] LABS: BASO % 0.3 % (0.0-1.0); EOS # 0.1 10^3/uL (0.0-0.50); HEMATOCRIT 46.1 % (36.0-47.0); HEMOGLOBIN 15.7 g/dl (12.0-15.5); IMMATURE GRANULOCYTE % 0.3 % (0-3.0); LYMPH # 0.9 10^3/uL (1.5-4.5); LYMPH % 12.9 % (24.0-44.0); MEAN CORPUSCULAR HEMOGLOBIN 29.8 pg (27.0-33.0); MEAN CORPUSCULAR HGB CONC 34.1 g/dl (32.0-36.5); MEAN CORPUSCULAR VOLUME 87.5 fl (80.0-96.0); MONO # 0.5 10^3/uL (0.0-0.8); MONO % 6.4 % (0.0-5.0); NEUTROPHILS # 5.7 10^3/uL (1.8-7.7); NEUTROPHILS % 79.1 % (36.0-66.0); PLATELET COUNT, AUTOMATED 232 10^3/uL (150-450); RED BLOOD COUNT 5.27 10^6/uL (4.00-5.40); RED CELL DISTRIBUTION WIDTH 12.3 % (11.5-14.5); WHITE BLOOD COUNT 7.2 10^3/uL (4.0-10.0)
[2018-04-29 09:33] LABS: ALBUMIN 3.9 GM/DL (3.2-5.2); ALBUMIN/GLOBULIN RATIO 1.05 (1.00-1.93); ALKALINE PHOSPHATASE 62 U/L (45-117); ALT/SGPT 38 U/L (12-78); ANION GAP 7 MEQ/L (8-16); AST/SGOT 42 U/L (7-37); BILIRUBIN,DIRECT 0.3 MG/DL (0.0-0.2); BLOOD UREA NITROGEN 7 MG/DL (7-18); CALCIUM LEVEL 8.4 MG/DL (8.5-10.1); CARBON DIOXIDE LEVEL 27 MEQ/L (21-32); CHLORIDE LEVEL 105 MEQ/L (98-107); CK-MB VALUE MASS < 1.0 NG/ML (<3.6); CPK CREATINE PHOSPHOKINASE 72 U/L (26-192); CREATININE FOR GFR 0.77 MG/DL (0.55-1.30); GLOMERULAR FILTRATION RATE > 60.0 (>51); GLUCOSE, FASTING 106 MG/DL (70-100); LIPASE 69 U/L (73-393); MB/CK RELATIVE INDEX 1.38 (< OR =4); POTASSIUM SERUM 3.7 MEQ/L (3.5-5.1); SODIUM LEVEL 139 MEQ/L (136-145); TOTAL PROTEIN 7.6 GM/DL (6.4-8.2); TROPONIN I < 0.02 NG/ML (< 0.10)
[2018-04-29] MEDS: NS 500 ML IV (09:49)
[2018-04-29] MEDS: METOCLOPRAMIDE INJ 10MG/2ML VIAL (J2765) IV (09:49)
[2018-04-29] MEDS: ONDANSETRON 4MG/2ML VIAL (J2405) IV (10:15)
[2018-04-29] MEDS: MORPHINE 2 MG/ML 1ML SYRINGE (J2270) IV (11:22)
== END 2018-04-29 14:18 | disposition home or self-care (01) ==
LOC: M ED 07:42
DX: R11.2 Nausea with vomiting, unspecified (principal); R19.7 Diarrhea, unspecified; I10 Essential (primary) hypertension; M32.9 Systemic lupus erythematosus, unspecified; M79.7 Fibromyalgia; M06.9 Rheumatoid arthritis, unspecified; G47.30 Sleep apnea, unspecified; Z87.19 Personal history of other diseases of the digestive system
CPT/HCPCS: C9113

== ENCOUNTER → 2018-05-08 | Outpatient (REF) | payer OTHER ==
[2018-05-15 00:10] LABS: FATS NEUTRAL Normal (.); FATS TOTAL Normal (.)
== END ==
LOC: M LAB REF 17:28
DX: R19.7 Diarrhea, unspecified (principal)

== ENCOUNTER 2018-05-22 12:33 | Emergency (ER) | payer OTHER ==
[2018-05-22 13:34] LABS: BASO # 0.1 10^3/uL (0.0-0.2); BASO % 0.8 % (0.0-1.0); EOS # 0.4 10^3/uL (0.0-0.50); EOS % 3.5 % (0.0-3.0); HEMATOCRIT 41.7 % (36.0-47.0); HEMOGLOBIN 13.8 g/dl (12.0-15.5); IMMATURE GRANULOCYTE % 0.8 % (0-3.0); LYMPH # 2.4 10^3/uL (1.5-4.5); LYMPH % 20.3 % (24.0-44.0); MEAN CORPUSCULAR HEMOGLOBIN 29.2 pg (27.0-33.0); MEAN CORPUSCULAR HGB CONC 33.1 g/dl (32.0-36.5); MEAN CORPUSCULAR VOLUME 88.3 fl (80.0-96.0); MONO # 0.7 10^3/uL (0.0-0.8); MONO % 5.6 % (0.0-5.0); NEUTROPHILS # 8.1 10^3/uL (1.8-7.7); PLATELET COUNT, AUTOMATED 419 10^3/uL (150-450); RED BLOOD COUNT 4.72 10^6/uL (4.00-5.40); RED CELL DISTRIBUTION WIDTH 13.5 % (11.5-14.5); WHITE BLOOD COUNT 11.8 10^3/uL (4.0-10.0)
[2018-05-22] MEDS: fentaNYL 100 MCG/2 ML INJECTION (J3010) IV ×2 (14:06→14:50)
[2018-05-22] MEDS: NS 500 ML IV (14:06)
[2018-05-22 14:07] LABS: ALBUMIN 2.6 GM/DL (3.2-5.2); ALBUMIN/GLOBULIN RATIO 0.57 (1.00-1.93); ALKALINE PHOSPHATASE 144 U/L (45-117); ALT/SGPT 63 U/L (12-78); ANION GAP 7 MEQ/L (8-16); AST/SGOT 35 U/L (7-37); BILIRUBIN,DIRECT 0.3 MG/DL (0.0-0.2); BILIRUBIN,TOTAL 0.6 MG/DL (0.2-1.0); BLOOD UREA NITROGEN 9 MG/DL (7-18); CARBON DIOXIDE LEVEL 32 MEQ/L (21-32); CHLORIDE LEVEL 99 MEQ/L (98-107); CREATININE FOR GFR 0.73 MG/DL (0.55-1.30); GLOMERULAR FILTRATION RATE > 60.0 (>51); GLUCOSE, FASTING 94 MG/DL (70-100); LIPASE 354 U/L (73-393); MAGNESIUM LEVEL 1.9 MG/DL (1.8-2.4); POTASSIUM SERUM 4.8 MEQ/L (3.5-5.1); SODIUM LEVEL 138 MEQ/L (136-145); TOTAL PROTEIN 7.2 GM/DL (6.4-8.2); URIC ACID 3.7 MG/DL (2.6-6.0)
[2018-05-22] MEDS: oxyCODONE 5MG TAB PO (17:27)
[2018-05-22] MEDS: OXYCODONE/APAP 5MG/325MG(BULK FOR ED) 1 TABLET PO (20:00)
== END 2018-05-22 20:10 | disposition home or self-care (01) ==
LOC: M ED 12:33
DX: M19.071 Primary osteoarthritis, right ankle and foot (principal); M19.072 Primary osteoarthritis, left ankle and foot; I10 Essential (primary) hypertension; E03.9 Hypothyroidism, unspecified; M32.9 Systemic lupus erythematosus, unspecified; M06.9 Rheumatoid arthritis, unspecified; Z91.19 Patient's noncompliance with other medical treatment and regimen; Z79.899 Other long term (current) drug therapy
CPT/HCPCS: J3010

== ENCOUNTER → 2018-06-06 | Outpatient (REF) | payer OTHER | LOC: M LAB REF 13:00 | DX: R19.7 Diarrhea, unspecified (principal); K62.89 Other specified diseases of anus and rectum; R10.11 Right upper quadrant pain ==

== ENCOUNTER → 2018-06-23 | Outpatient (CLI) | payer OTHER | LOC: M PAIN 08:30 | DX: M32.9 Systemic lupus erythematosus, unspecified (principal); M46.90 Unspecified inflammatory spondylopathy, site unspecified; M06.9 Rheumatoid arthritis, unspecified; G89.29 Other chronic pain; G47.30 Sleep apnea, unspecified; M79.7 Fibromyalgia; I10 Essential (primary) hypertension; K21.9 Gastro-esophageal reflux disease without esophagitis; Z79.891 Long term (current) use of opiate analgesic; Z79.899 Other long term (current) drug therapy; Z87.19 Personal history of other diseases of the digestive system | CPT/HCPCS: G0463 ==

== ENCOUNTER → 2018-08-22 | Outpatient (CLI) | payer OTHER | LOC: M PAIN 09:15 | DX: M46.90 Unspecified inflammatory spondylopathy, site unspecified (principal); I10 Essential (primary) hypertension; M32.9 Systemic lupus erythematosus, unspecified; K21.9 Gastro-esophageal reflux disease without esophagitis; M06.9 Rheumatoid arthritis, unspecified; G47.30 Sleep apnea, unspecified; M79.7 Fibromyalgia; E66.01 Morbid (severe) obesity due to excess calories; Z68.42 Body mass index [BMI] 45.0-49.9, adult; Z79.4 Long term (current) use of insulin; Z79.891 Long term (current) use of opiate analgesic; Z79.899 Other long term (current) drug therapy | CPT/HCPCS: G0463 ==

== ENCOUNTER → 2018-11-11 | Outpatient (REF) | payer OTHER ==
[~2018-11-11] MED LIST changes: +DICY20TA11 PO; -DRIS50002 PO; +DRIS50003 PO; +GABA-843 PO; +HUMI40KI2; +HYDR200T3; -IMIT50TA OR; +IMIT50TA PO; -LOSA50TA20 PO; +LOSA50TA88 PO; +OXYC10TA12 PO; +ZOFR4TAB14 PO
[2018-11-11 14:20] LABS: ALBUMIN 4.1 GM/DL (3.2-5.2); ALT/SGPT 29 U/L (12-78); BILIRUBIN,TOTAL 0.9 MG/DL (0.2-1.0); BLOOD UREA NITROGEN 9 MG/DL (7-18); CALCIUM LEVEL 9.1 MG/DL (8.5-10.1); CARBON DIOXIDE LEVEL 26 MEQ/L (21-32); CHLORIDE LEVEL 102 MEQ/L (98-107); CHOLESTEROL LEVEL 192 MG/DL (<200); CHOLESTEROL RISK RATIO 3.555 (<5); CREATININE FOR GFR 0.85 MG/DL (0.55-1.30); GLOMERULAR FILTRATION RATE > 60.0 (>51); GLUCOSE, FASTING 85 MG/DL (70-100); HDL CHOLESTEROL 54 MG/DL (>40); LDL CHOLESTEROL 107 MG/DL (<100); NON-HDL-C 138 MG/DL; POTASSIUM SERUM 4.2 MEQ/L (3.5-5.1); SODIUM LEVEL 139 MEQ/L (136-145); TOTAL 25(OH) VITAMIN D 50.3 NG/ML (30.0-100.0); TOTAL PROTEIN 7.7 GM/DL (6.4-8.2); TRIGLYCERIDES LEVEL 153 MG/DL (<150)
== END ==
LOC: M SFHCPLAZ 10:11
PROVIDERS: ATTEND Nurse Practitioner Family
DX: I10 Essential (primary) hypertension (principal); K76.0 Fatty (change of) liver, not elsewhere classified; E78.5 Hyperlipidemia, unspecified; E03.9 Hypothyroidism, unspecified; E55.9 Vitamin D deficiency, unspecified

== ENCOUNTER → 2018-11-21 | Outpatient (CLI) | payer OTHER ==
--- NOTE | 2018-11-22 23:44 | ECWPNPC ---
PATIENT NAME: ROSHAN WOODS : 1965 GENDER: FEMALE VISIT DATE: 11/21/2018 DISCHARGE DATE: 11/21/18922 VISIT LOCKED DATE TIME: PHYSICIAN: LAUREN DE LA ROSA RESOURCE: LAUREN DE LA ROSA REASON FOR APPOINTMENT 1. 2 MONTHS HIP/BACK HISTORY OF PRESENT ILLNESS HISTORY OF PRESENT ILLNESS: HERE FOR F/U OF CHRONIC LOW BACK PAIN.RATING PAIN VAS 5/10.REPORTING AN INCREASE IN MUSCLE SPASM PAIN MID THORACIC REGION.FINDS MEDICATION IS HELPFUL.DENIES SIDE EFFECTS. PAIN THE PATIENT DESCRIBES THE PAIN... FALL RISK SCREENING: SCREENING : NO FALLS IN THE PAST YEAR. CURRENT MEDICATIONS TAKING OMEPRAZOLE 40 MG CAPSULE DELAYED RELEASE 1 CAPSULE ORALLY ONCE A DAY, NEEDED TAKING FLONASE INHALER 2 SPRAY IN EACH NOSTRIL NASALLY ONCE A DAY NEEDED TAKING CETIRIZINE HCL 10 MG TABLET 1 TABLET ORALLY ONCE A DAY TAKING LOSARTAN POTASSIUM 50 MG TABLET 1 TABLET ORALLY DAILY TAKING SYNTHROID 100 MCG TABLET TAKE ONE TABLET BY MOUTH EVERY MORNING ON AN EMPTY STOMACH ORALLY ONCE A DAY TAK[place]ITAMIN D 41767 UNIT CAPSULE 1 CAPSULE ORALLY ONCE A WEEK TAKING ESTRACE 2 GRAMS VAGINAL 2 TIMES A WEEK TAKING PAIN RELIEVING RUB CREAM 1 DOSE EXTERNALLY NEEDED/ TAKING VENTOLIN HFA AEROSOL SOLUTION 2 PUFFS NEEDED INHALATION EVERY 4 HOURS NEEDED TAKING HYDROXYCHLOROQUINE SULFATE 200 MG TABLET 1 TABLET WITH FOOD OR MILK ORALLY TWICE A DAY TAKING DICYCLOMINE HCL 10 MG CAPSULE 2 CAPSULES ORALLY FOUR TIMES A DAY, NOTES: PRN TAKING HUMIRA 10 MG/0.2ML PREFILLED SYRINGE KIT 40 MGS SUBCUTANEOUS EVERY 2 WEEKS TAKING SUCRALFATE 1 GM TABLET 1 TABLET ON AN EMPTY STOMACH ORALLY DAILY TAKING GABAPENTIN 300 MG CAPSULE 1 CAPSULE ORALLY THREE TIMES DAILY TAKING BACLOFEN 20 MG TABLET 1 CAP(S) ORALLY Q6H NEEDED TAKING FENTANYL 25 MCG/HR PATCH 72 HOUR 1 PATCH TO SKIN TRANSDERMAL 1 PATCH [id number]=ZYS TAKING HYDROCODONE-ACETAMINOPHEN 10-325 MG TABLET 1/2 TO 1 TAB ORALLY Q6-8 H MDD3 TAKING IMITREX 50 MG TABLET 1 TAB ORALLY NEEDED/ FOR MIGRAINES 2-3 MIGRAINES PER MONTH NOT-TAKING VITAMIN D 39320 UNIT CAPSULE 1 CAPSULE ORALLY ONCE A WEEK, NOTES: DUPLICATE NOT-TAKING CETIRIZINE HCL 10 MG TABLET 1 TABLET ORALLY ONCE A DAY, NOTES: DUPLICATE NOT-TAKING LOSARTAN POTASSIUM 50 MG TABLET TAKE ONE TABLET BY MOUTH EVERY DAY , NOTES: DUPLICATE NOT-TAKING SYNTHROID 100 MCG TABLET TAKE ONE TABLET BY MOUTH EVERY MORNING ON AN EMPTY STOMACH ORALLY ONCE A DAY, NOTES: DUPLICATE NOT-TAKING PROMETHAZINE HCL 12.5 MG SUPPOSITORY 1 SUPPOSITORY NEEDED RECTAL EVERY 6 HRS MEDICATION LIST REVIEWED AND RECONCILED WITH THE PATIENT PAST MEDICAL HISTORY RA-FOLLOWS WITH RHEUMATOLOGY IN [place] SLEEP APNEA: WAS FOLLOWING WITH [facility], HAS NOT BEEN WEARING CPAP FIBROMYALGIA HYPERTENSION LUPUS: RHEUMATOLOGY IN [place] GERD CHRONIC BACK PROBLEMS (BULDGING DISC) SOB WHEN IN SEVERE BACK PAIN; USES VENTOLIN INHALER COLONOSCOPY WITH EGD 2014 & 2016: DR. 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 IBD: FOLLOWS WITH GI, DR. PARVEZ LEHMAN HLA-B27 ANKYLOSING OF SI JOINT 10 YEAR ASCVD RISK 1.9% POSSIBLE SEIZURE DISORDER: PER PATIENT, WORK-UP WAS INCONCLUSIVE, WAS REFERRED TO NEUROLOGY IN [place] (ONLY ATTENDED INITIAL CONSULTATION, PATIENT DID NOT F/U) 10 YEAR ASCVD 1.9%. 11/2017 PARASITE - CRYPTOSPORION ALLERGIES N.K.D.A. SURGICAL HISTORY TONSILLECTOMY 1979 HYSTERECTOMY, RIGHT OVARY 2004 LEFT ANKLE FX REPAIR 2001 LEFT ANKLE SCREW REMOVED 2002 RECTOCELE REPAIR 2012 RECTOCELE MESH REMOVAL [address] PETERSEN 12/2016 CT SCAN HEAD: NORMAL 05/19/14 FAMILY HISTORY FATHER: ALIVE 79 YRS MOTHER: ALIVE 72 YRS SIBLINGS: ALIVE 48 YRS, CONGENITAL HEART DISEASE, DIAGNOSED WITH HEART DISEASE 1 SISTER(S) . 1 SON(S) , 2 DAUGHTER(S) - HEALTHY. SOCIAL HISTORY GENERAL: TOBACCO USE ARE YOU A:NONSMOKER NEVER SMOKER LATEX QUESTIONNAIRE LATEX ALLERGY : HAVE YOU EVER DEVELOPED ANY TYPE OF REACTION AFTER HANDLING LATEX PRODUCTS SUCH RUBBER GLOVES, CONDOMS, DIAPHRAGMS, BALLOONS, SOCKS, OR UNDERWEAR?NO LATEX ALLERGY : HAVE YOU EVER DEVELOPED ANY TYPE OF REACTION DURING OR AFTER DENTAL APPOINTMENT, VAGINAL/RECTAL EXAMINATION, SURGICAL PROCEDURE, OR ANY OTHER EXPOSURE?NO LATEX RISK : HAVE YOU EVER HAD ANY DIFFICULTY BREATHING OR HIVES AFTER EATING OR HANDLING ANY FRUITS, OR VEGETABLES; SUCH KIWI, BANANAS, STONE FRUITS, OR CHESTNUTSNO LATEX RISK : DO YOU HAVE A PREVIOUS PERSONAL HISTORY OF MORE THAN NINE SURGERIES, SPINA BIFIDA, OR REPEATED CATHERTIZATIONS? NO LATEX RISK : ARE YOU FREQUENTLY EXPOSED TO LATEX PRODUCTS IN YOUR OCCUPATION?NO DATE ASKED : 11/21/2018 BMI CARE GOAL FOLLOW-UP ABOVE NORMAL BMI FOLLOW-UPDIETARY NEEDS EDUCATION, EXERCISE PROMOTION: STRENGTH TRAINING ALCOHOL SCREENING DID YOU HAVE A DRINK CONTAINING ALCOHOL IN THE PAST YEAR?NO POINTS0 INTERPRETATIONNEGATIVE RECREATIONAL DRUG USE: NEVER DRUG USE?NO CAFFEINE CAFFEINE USE?YES 3 /DAY SEXUAL HX HAD SEX IN THE LAST 12 MONTHS (VAGINAL, ORAL, OR ANAL)?YES WITHMEN ONLY PREVENTION STRATEGIES DISCUSSED:OTHER USE PROTECTION?NO LMP:OVER 20 YEARS HAVE YOU EVER HAD AN STD?NO HIV / HEP-C SCREENING HIV TEST OFFERED TO PATIENT:YES DATE OFFERED:10/10/2016 TEST ACCEPTED:NO HEP-C TEST OFFERED TO PATIENT:YES DATE OFFERED:10/10/2016 REASON:PATIENT DECLINED HAD SCREENING IN THE PAST. TEST ACCEPTED:NO REASON:PATIENT DECLINED MORMONISM [id number] LANG[employer]AGE KOREAN. EDUCATION 12TH GRADUATE 2 YEARS COLLEGE. LEARNING BARRIERS / SPECIAL NEEDS CHANGE FROM LAST VISIT?NO BARRIERS TO LEARNING?NO HEARING IMPAIRED?NO VISION IMPAIRED?YES COGNITIVELY IMPAIRED?NO :CORRECTIVE LENSES READINESS TO LEARN?YES LEARNING PREFERENCES?NO LEARNING CAPABILITIES PRESENT?YES EMOTIONAL BARRIERS?NO SPECIAL DEVICES?NO CALENDER INSPECTOR NEEDED?NO DOMESTIC VIOLENCE DO YOU FEEL SAFE IN YOUR ENVIRONMENT?YES OCCUPATION: HOMEMAKER. DIET: VEGAN. EXERCISE: NONE. MARITAL STATUS: SINGLE. OTHERS AT HOME: LIVES WITH FRIEND. NEW PATIENT PAIN DIARY TODAY'S VISITNOTES FROM 0-10, WHAT LEVEL IS YOUR PAIN TODAY?0 PAIN CLINIC PFS, CLERGY, PUBLIC HEALTH REFERRALS PFS REFERRAL NEEDED?NO CLERGY REFERRAL NEEDED?NO PUBLIC HEALTH REFERRAL NEEDED?NO WAS THE PROVIDER NOTIFIED OF ANY PERTINENT INFO?YES HAS THE PATIENT BEEN EDUCATED REGARDING HIS/HER PLAN OF CARE?YES HAS THE PATIENT BEEN EDUCATED REGARDING PAIN, THE RISK FOR PAIN, THE IMPORTANCE OF EFFECTIVE PAIN MANAGEMENT, AND THE PAIN ASSESSMENT PROCESS?YES ADVANCE DIRECTIVE ADVANCE DIRECTIVE DISCUSSED WITH PATIENT:YES PT DOES NOT WANT HCP INFO AT THIS TIME, DECLINES ASSISTANCE 11/21/18 REVIEWED 02/11/18 1054 BVREVIEWED WITH PATIENT 06/23/18 0846 JSREVIEWED WITH PATIENT 08/22/18 0929REVIEWED WITH PT 11/21/18 0849 BV. HOSPITALIZATION/MAJOR DIAGNOSTIC PROCEDURE TWICE FOR CELLULITUS MOST RESCENTLY 3YEARS AGO ABOVE FOR SURGURIES POSSIBLE JAYME SAMPSON 2010 [employer]: POSSIBLE SEIZURES 2014 REVIEW OF SYSTEMS REVIEWED BY: PROVIDER: LAUREN ALEXANDRA . CONSTITUTIONAL: ANY CHANGE IN YOUR MEDICAL CONDITION? NO . CHILLS NO . FEVER NO . INFECTION: DO YOU HAVE NEW INFECTIONS? NO . DO YOU HAVE HISTORY OF MRSA? NO . MUSCULOSKELETAL: ANY NEW PATTERNS OF PAIN OR NUMBNESS? YES, PT HAS NOTICED INCREASED PAIN AND INCREASED SPASMS IN THORACIC AREA OF BACK OVER THE PAST COUPLE MONTHS . GASTROENTEROLOGY: ANY NEW CHANGE IN BOWEL CONTROL? NO . GENITOURINARY: ANY NEW CHANGE IN BLADDER CONTROL? NO . IS THERE A CHANCE YOU COULD BE ? NO . HEMATOLOGY/LYMPH: DO YOU TAKE ANY BLOOD THINNERS? (FOR EXAMPLE- COUMADIN, PLAVIX, AGGRENOX, PLATEL, PRADAXA, OR XARELTO) NO . WHEN WAS YOUR LAST DOSE? DATE: TIME: . NEUROLOGY: HAVE YOU FALLEN IN THE PAST 12 MONTHS? NO . ANY NEW EXTREMITY NUMBNESS OR WEAKNESS? NO . CARDIOLOGY: DO YOU HAVE A PACEMAKER OR DEFIBRILLATOR? NO . RESPIRATORY: HAVE YOU BEEN SICK IN THE PAST WEEK? NO . FEVER NO . FLU LIKE SYMPTOMS? NO . COUGH NO . INTEGUMENTARY: DO YOU HAVE ANY RASHES OR OPEN SORES? NO . ALLERGIC/IMMUNO: ARE YOU ALLERGIC TO IV DYE? NO . ANY NEW ALLERGIES? NO . PSYCHIATRIC: DO YOU HAVE THOUGHTS OF HURTING YOURSELF OR SOMEONE ELSE? NO . ARE YOU ABUSED, NEGLECTED, OR IN AN UNSAFE ENVIRONMENT? NO . ENDOCRINOLOGY: ARE YOU DIABETIC? NO . OTHER: DO YOU NEED ANY PRESCRIPTIONS? NO . IF YES, PLEASE LIST: ____ . ANY NEW PROBLEMS WITH YOUR MEDICATIONS? NO . WHEN DID YOU LAST EAT? ____ . WHEN DID YOU LAST DRINK? ____ . WHAT DID YOU LAST DRINK? ____ . NAME OF PERSON DRIVING YOU HOME? ____ . DO YOU HAVE ANY OTHER QUESTIONS OR CONCERNS NO . VITAL SIGNS WT 271 LBS,2 LBS, HT 64.5 IN, BMI 458.27 INDEX, BP 150/94 MM HG, HR 77 /MIN, RR 16 /MIN, TEMP 96.9 F, OXYGEN SAT % 95%, NA INITIALS SC 09:01, REVIEWED BY: BV. EXAMINATION GENERAL EXAMINATION: GENERAL APPEARANCE:AWAKE,ALERT ,PLEAASANT . PSYCHAFFECT NORMAL . LUNGS:LUNG VELEZ ARE CLEAR TO AUSCULTATION BILATERALLY. GOOD MOVEMENT OF AIR . HEART:S1, S2 IN A REGULAR RATE AND RHYTHM. NO SIGNIFICANT MURMURS, RUBS OR GALLOPS NOTED . ASSESSMENTS INFLAMMATORY SPONDYLOPATHY MANIFESTATION OF UNDERLYING DISEASE - M46.90 (PRIMARY) TREATMENT INFLAMMATORY SPONDYLOPATHY MANIFESTATION OF UNDERLYING DISEASE CONTINUE BACLOFEN TABLET, 20 MG, 1 CAP(S), ORALLY, Q6H NEEDED REFILL FENTANYL PATCH 72 HOUR, 25 MCG/HR, 1 PATCH TO SKIN, TRANSDERMAL, 1 PATCH [id number], 30 DAY(S), 10, REFILLS 0 REFILL HYDROCODONE-ACETAMINOPHEN TABLET, 10-325 MG, 1/2 TO 1 TAB, ORALLY, Q6-8 H MDD3, 30 DAY(S), 90, REFILLS 0 NOTES: ISTOP REGISTRY REVIEWED AND DEMONSTRATES COMPLLIANCE. (REF #[id number] ) BRINGS IN MEDICATIONS WHICH IS APPROPRIATE FOR WHAT WAS DISPENSED. RECENT URINE TOXICOLOGY REVIEWED. NO UNAUTHORIZED MEDICATIONS. NO ILLICIT SUBSTANCES AND PRESCRIBED MEDICATIONS WERE PRESENT. URINE TOX TODAY, RISKS AND BENEFITS OF NARCOTIC/OPIOD MEDICATIONS WERE REVIEWED WITH PATIENT - THIS INCLUDES BUT IS NOT LIMITED TO RISK OF DEPENDANCE/DEVELOPMENT OF ADDICTION, MOOD DISTURBANCE AND DEPRESSION, OSTEOPOROSIS, HORMONAL AND LABIDAL CHANGES, RESPIRATORY DEPRESSION AND . PATIENT IS ADVISED NOT TO DRIVE OR DRINK ALCOHOL WHILE ON THESE MEDICATIONS. PROCEDURE CODES FA211 ESTABILISHED PATIENT [facility] CHARGE DISPOSITION & COMMUNICATION FOLLOW UP 3 MONTHS ELECTRONICALLY SIGNED BY NASRIN BLACKMON ON 11/21/2018 AT 11:32 AM EST DISCLAIMER : THIS IS A VISIT SUMMARY EXTRACTED FROM THE [email or web address] CHART. IT IS NOT A COPY OF THE [employer] PROGRESS NOTE. OZZIE
== END ==
LOC: M PAIN 08:30
PROVIDERS: ATTEND Nurse Practitioner Family
DX: M46.90 Unspecified inflammatory spondylopathy, site unspecified (principal); G89.29 Other chronic pain; M06.9 Rheumatoid arthritis, unspecified; G47.30 Sleep apnea, unspecified; M79.7 Fibromyalgia; I10 Essential (primary) hypertension; M32.9 Systemic lupus erythematosus, unspecified; K21.9 Gastro-esophageal reflux disease without esophagitis; E66.01 Morbid (severe) obesity due to excess calories; Z68.42 Body mass index [BMI] 45.0-49.9, adult; Z79.891 Long term (current) use of opiate analgesic; Z79.899 Other long term (current) drug therapy

== ENCOUNTER 2019-02-04 17:49 | Emergency (ER) | payer OTHER ==
[~2019-02-04] VITALS: Ht 160 cm; Wt 114.0 kg
[2019-02-04 19:51] LABS: BASO # 0.1 10^3/uL (0.0-0.2); BASO % 0.7 % (0.0-1.0); EOS # 0.1 10^3/uL (0.0-0.50); EOS % 1.4 % (0.0-3.0); HEMATOCRIT 45.2 % (36.0-47.0); HEMOGLOBIN 14.7 g/dl (12.0-15.5); LYMPH # 2.7 10^3/uL (1.5-4.5); LYMPH % 26.8 % (24.0-44.0); MEAN CORPUSCULAR HEMOGLOBIN 29.1 pg (27.0-33.0); MEAN CORPUSCULAR HGB CONC 32.5 g/dl (32.0-36.5); MEAN CORPUSCULAR VOLUME 89.5 fl (80.0-96.0); MONO # 0.6 10^3/uL (0.0-0.8); MONO % 6.3 % (0.0-5.0); NEUTROPHILS # 6.5 10^3/uL (1.8-7.7); NEUTROPHILS % 64.5 % (36.0-66.0); PLATELET COUNT, AUTOMATED 351 10^3/uL (150-450); RED BLOOD COUNT 5.05 10^6/uL (4.00-5.40); WHITE BLOOD COUNT 10.1 10^3/uL (4.0-10.0)
[2019-02-04 20:17] LABS: ALBUMIN 3.8 GM/DL (3.2-5.2); ALT/SGPT 18 U/L (12-78); BILIRUBIN,DIRECT 0.2 MG/DL (0.0-0.2); BILIRUBIN,TOTAL 0.6 MG/DL (0.2-1.0); BLOOD UREA NITROGEN 10 MG/DL (7-18); CALCIUM LEVEL 9.3 MG/DL (8.5-10.1); CARBON DIOXIDE LEVEL 32 MEQ/L (21-32); CHLORIDE LEVEL 101 MEQ/L (98-107); CREATININE FOR GFR 0.77 MG/DL (0.55-1.30); GLOMERULAR FILTRATION RATE > 60.0 (>51); GLUCOSE, FASTING 89 MG/DL (70-100); LIPASE 70 U/L (73-393); POTASSIUM SERUM 4.1 MEQ/L (3.5-5.1); SODIUM LEVEL 138 MEQ/L (136-145); TOTAL PROTEIN 7.5 GM/DL (6.4-8.2)
[2019-02-04] MEDS ORDERED: ONDANSETRON 4 MG ORAL DISINTEGRATING TAB (Q0162 PER 1MG) PO ONE (21:30)
[2019-02-04] MEDS ORDERED: DICYCLOMINE 10 MG CAP PO ONE (21:30)
[2019-02-04 21:47] LABS: CPK CREATINE PHOSPHOKINASE 55 U/L (26-192); MB/CK RELATIVE INDEX 2.36 (< OR =4); TROPONIN I < 0.02 NG/ML (< 0.10)
--- NOTE | 2019-02-04 22:44 | REPVR ---
EXAM: US Abdomen Limited, Right Upper Quadrant EXAM DATE/TIME: 02/04/2019 10:09 PM CLINICAL HISTORY: 53 years old, female; Abdominal pain; Epigastric; Additional info: Ruq pain, incr. After eating TECHNIQUE: Imaging protocol: Real-time ultrasound of the abdomen with image documentation. Examination was focused on the right upper quadrant. COMPARISON: LIVER US 04/24/2018 6:40 AM FINDINGS: Liver: The liver is diffusely echogenic relative to the right kidney, findings consistent with steatosis. Gallbladder: Gallbladder not well visualized and appears to be contracted containing calculi suggestive of chronic cholecystitis. Common bile duct: Common bile that measures 4 mm. Pancreas: Visualized pancreas is unremarkable. Right kidney: Right kidney measures 11.7 x 5.7 x 4.1 cm. IMPRESSION: 1. Hepatic steatosis. 2. Gallbladder not well visualized and appears to be contracted containing calculi suggestive of chronic cholecystitis. Electronically signed by: Alvaro Denise On 02/04/2019 22:44:13 PM
[2019-02-04 22:58] VITALS: BP 138/82
[2019-02-04] MEDS ORDERED: REGL10TA6 PO (22:59)
--- NOTE | 2019-02-05 13:44 | ED PDOC ---
Post-Departure Follow-Up [facility] and dr garrido faxed formal repot of gb us for fu Franko Lawton MD February 05, 2019 13:44
--- NOTE | 2019-02-05 20:20 | ECGEPIP ---
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
== END 2019-02-04 23:05 | disposition home or self-care (01) ==
LOC: M ED 17:49
DX: K81.1 Chronic cholecystitis (principal); G43.909 Migraine, unspecified, not intractable, without status migrainosus; Z79.899 Other long term (current) drug therapy; Z79.890 Hormone replacement therapy
CPT/HCPCS: 36415; 76705; 80048; 80076; 81001; 82550; 82553; 83690; 85025; 87086; 93005; 99284; Q0162

== ENCOUNTER → 2019-02-20 | Outpatient (CLI) | payer OTHER ==
[~2019-02-20] MED LIST changes: +CETI5SOL3 PO; +FENT1DIS14; +FLON1SPR; +REGL10TA6 PO; +VENTAER INH
--- NOTE | 2019-03-10 02:09 | ECWPNPC ---
PATIENT NAME: ROSHAN WOODS : 1965 GENDER: FEMALE VISIT DATE: 02/20/2019 DISCHARGE DATE: 02/20/19938 VISIT LOCKED DATE TIME: PHYSICIAN: LAUREN DE LA ROSA RESOURCE: LAUREN DE LA ROSA REASON FOR APPOINTMENT 1. HIP/BACK HISTORY OF PRESENT ILLNESS HISTORY OF PRESENT ILLNESS: HERE FOR F/U OF CHRONIC LOW BACK PAIN.RATING PAIN VAS 4/10.REPORTING AN INCREASE IN MUSCLE SPASM PAIN MID THORACIC REGION.FINDS MEDICATION IS HELPFUL.DENIES SIDE EFFECTS. PAIN THE PATIENT DESCRIBES THE PAIN... THE PATIENT DESCRIBES THE PAIN... FALL RISK SCREENING: SCREENING :NO FALLS REPORTED IN THE LAST YEAR CURRENT MEDICATIONS TAKING OMEPRAZOLE 40 MG CAPSULE DELAYED RELEASE 1 CAPSULE ORALLY ONCE A DAY, NEEDED TAKING FLONASE INHALER 2 SPRAY IN EACH NOSTRIL NASALLY ONCE A DAY NEEDED TAKING ESTRACE 2 GRAMS VAGINAL 2 TIMES A WEEK TAKING PAIN RELIEVING RUB CREAM 1 DOSE EXTERNALLY NEEDED/ TAKING VENTOLIN HFA AEROSOL SOLUTION 2 PUFFS NEEDED INHALATION EVERY 4 HOURS NEEDED TAKING HYDROXYCHLOROQUINE SULFATE 200 MG TABLET 1 TABLET WITH FOOD OR MILK ORALLY TWICE A DAY TAKING DICYCLOMINE HCL 10 MG CAPSULE 2 CAPSULES ORALLY FOUR TIMES A DAY, NOTES: PRN TAKING HUMIRA 10 MG/0.2ML PREFILLED SYRINGE KIT 40 MGS SUBCUTANEOUS EVERY 2 WEEKS TAKING SUCRALFATE 1 GM TABLET 1 TABLET ON AN EMPTY STOMACH ORALLY DAILY TAKING IMITREX 50 MG TABLET 1 TAB ORALLY NEEDED/ FOR MIGRAINES 2-3 MIGRAINES PER MONTH TAKING LOSARTAN POTASSIUM 50 MG TABLET 1 TABLET ORALLY DAILY TAKING SYNTHROID 100 MCG TABLET 1 TABLET ON AN EMPTY STOMACH IN THE MORNING ORALLY ONCE A DAY TAKING FENTANYL 25 MCG/HR PATCH 72 HOUR 1 PATCH TO SKIN TRANSDERMAL 1 PATCH [id number] TAKING HYDROCODONE-ACETAMINOPHEN 10-325 MG TABLET 1/2 TO 1 TAB ORALLY Q6-8 H MDD3 TAKING BACLOFEN 20 MG TABLET 1 CAP(S) ORALLY Q6H NEEDED TAKING GABAPENTIN 300 MG CAPSULE 1 CAPSULE ORALLY THREE TIMES DAILY TAKING CETIRIZINE HCL 10 MG TABLET 1 TABLET ORALLY ONCE A DAY NOT-TAKING VITAMIN D 02545 UNIT CAPSULE 1 CAPSULE ORALLY ONCE A WEEK, NOTES: DUPLICATE NOT-TAKING CETIRIZINE HCL 10 MG TABLET 1 TABLET ORALLY ONCE A DAY, NOTES: DUPLICATE NOT-TAKING SYNTHROID 100 MCG TABLET TAKE ONE TABLET BY MOUTH EVERY MORNING ON AN EMPTY STOMACH ORALLY ONCE A DAY, NOTES: DUPLICATE NOT-TAKING PROMETHAZINE HCL 12.5 MG SUPPOSITORY 1 SUPPOSITORY NEEDED RECTAL EVERY 6 HRS MEDICATION LIST REVIEWED AND RECONCILED WITH THE PATIENT PAST MEDICAL HIST[facility] WAS FOLLOWING WITH [facility], HAS NOT BEEN WEARING CPAP FIBROMYALGIA HYPERTENSION LUPUS: RHEUMATOLOGY IN [place] GERD CHRONIC BACK PROBLEMS (BULDGING DISC) SOB WHEN IN SEVERE BACK PAIN; USES VENTOLIN INHALER COLONOSCOPY WITH EGD 2014 & 2016: DR. 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 IBD: FOLLOWS WITH GI, DR. PARVEZ LEHMAN [id number] ANKYLOSING OF SI JOINT 10 YEAR ASCVD RISK 1.9% POSSIBLE SEIZURE DISORDER: PER PATIENT, WORK-UP WAS INCONCLUSIVE, WAS REFERRED TO NEUROLOGY IN [place] (ONLY ATTENDED INITIAL CONSULTATION, PATIENT DID NOT F/U) 10 YEAR ASCVD 1.9%. 11/2017 PARASITE - CRYPTOSPORION ALLERGIES N.K.D.A. SURGICAL HISTORY TONSILLECTOMY 1979 HYSTERECTOMY, RIGHT OVARY 2004 LEFT ANKLE FX REPAIR 2001 LEFT ANKLE SCREW REMOVED 2002 RECTOCELE REPAIR 2012 RECTOCELE MESH REMOVAL [address] PETERSEN 12/2016 CT SCAN HEAD: NORMAL 05/19/14 FAMILY HISTORY FATHER: ALIVE 79 YRS MOTHER: ALIVE 72 YRS SIBLINGS: ALIVE 48 YRS, CONGENITAL HEART DISEASE, DIAGNOSED WITH HEART DISEASE 1 SISTER(S) . 1 SON(S) , 2 DAUGHTER(S) - HEALTHY. SOCIAL HISTORY GENERAL: TOBACCO USE ARE YOU A:NONSMOKER NEVER SMOKER HIV / HEP-C SCREENING HIV TEST OFFERED TO PATIENT:YES DATE OFFERED:10/10/2016 TEST ACCEPTED:NO HEP-C TEST OFFERED TO PATIENT:YES DATE OFFERED:10/10/2016 REASON:PATIENT DECLINED HAD SCREENING IN THE PAST. TEST ACCEPTED:NO REASON:PATIENT DECLINED OTHERS AT HOME: LIVES WITH FRIEND. EDUCATION 12TH GRADUATE 2 YEARS COLLEGE. DIET: VEGAN. LANGUAGE LANGUAGES SPOKEN:TAJIK DOMESTIC VIOLENCE DO YOU FEEL SAFE IN YOUR ENVIRONMENT?YES NEW PATIENT PAIN DIARY TODAY'S VISIT NOTES, FROM 0-10, WHAT LEVEL IS YOUR PAIN TODAY? 0. BMI CARE GOAL FOLLOW-UP ABOVE NORMAL BMI FOLLOW-UPDIETARY NEEDS EDUCATION, EXERCISE PROMOTION: STRENGTH TRAINING RECREATIONAL DRUG USE: NEVER DRUG USE?NO EXERCISE: NONE. LEARNING BARRIERS / SPECIAL NEEDS CHANGE FROM LAST VISIT?NO BARRIERS TO LEARNING?NO HEARING IMPAIRED?NO VISION IMPAIRED?YES COGNITIVELY IMPAIRED?NO :CORRECTIVE LENSES READINESS TO LEARN?YES LEARNING PREFERENCES?NO LEARNING CAPABILITIES PRESENT?YES EMOTIONAL BARRIERS?NO SPECIAL DEVICES?NO REGIONAL SALES COORDINATOR NEEDED?NO PAIN CLINIC PFS, CLERGY, PUBLIC HEALTH REFERRALS PFS REFERRAL NEEDED?NO CLERGY REFERRAL NEEDED?NO PUBLIC HEALTH REFERRAL NEEDED?NO WAS THE PROVIDER NOTIFIED OF ANY PERTINENT INFO?YES HAS THE PATIENT BEEN EDUCATED REGARDING HIS/HER PLAN OF CARE?YES HAS THE PATIENT BEEN EDUCATED REGARDING PAIN, THE RISK FOR PAIN, THE IMPORTANCE OF EFFECTIVE PAIN MANAGEMENT, AND THE PAIN ASSESSMENT PROCESS?YES LATEX QUESTIONNAIRE LATEX ALLERGY : HAVE YOU EVER DEVELOPED ANY TYPE OF REACTION AFTER HANDLING LATEX PRODUCTS SUCH RUBBER GLOVES, CONDOMS, DIAPHRAGMS, BALLOONS, SOCKS, OR UNDERWEAR?NO LATEX ALLERGY : HAVE YOU EVER DEVELOPED ANY TYPE OF REACTION DURING OR AFTER DENTAL APPOINTMENT, VAGINAL/RECTAL EXAMINATION, SURGICAL PROCEDURE, OR ANY OTHER EXPOSURE?NO DATE ASKED : 11/21/2018 LATEX RISK : HAVE YOU EVER HAD ANY DIFFICULTY BREATHING OR HIVES AFTER EATING OR HANDLING ANY FRUITS, OR VEGETABLES; SUCH KIWI, BANANAS, STONE FRUITS, OR CHESTNUTSNO LATEX RISK : DO YOU HAVE A PREVIOUS PERSONAL HISTORY OF MORE THAN NINE SURGERIES, SPINA BIFIDA, OR REPEATED CATHERTIZATIONS? NO LATEX RISK : ARE YOU FREQUENTLY EXPOSED TO LATEX PRODUCTS IN YOUR OCCUPATION?NO CAFFEINE CAFFEINE USE?YES 3 /DAY ADVANCE DIRECTIVE ADVANCE DIRECTIVE DISCUSSED WITH PATIENT:YES PT DOES NOT WANT HCP INFO AT THIS TIME, DECLINES ASSISTANCE ZOROASTRIAN [id number] HINDUISM MARITAL STATUS: SINGLE. ALCOHOL SCREENING DID YOU HAVE A DRINK CONTAINING ALCOHOL IN THE PAST YEAR?NO POINTS0 INTERPRETATIONNEGATIVE OCCUPATION: HOMEMAKER. SEXUAL HX HAD SEX IN THE LAST 12 MONTHS (VAGINAL, ORAL, OR ANAL)?YES WITHMEN ONLY PREVENTION STRATEGIES DISCUSSED:OTHER USE PROTECTION?NO LMP:OVER 20 YEARS HAVE YOU EVER HAD AN STD?NO REVIEWED 02/11/18 1054 BVREVIEWED WITH PATIENT 06/23/18 0846 JSREVIEWED WITH PATIENT 08/22/18 0929REVIEWED WITH PT 11/21/18 0849 BV. HOSPITALIZATION/MAJOR DIAGNOSTIC PROCEDURE TWICE FOR CELLULITUS MOST RESCENTLY 3YEARS AGO ABOVE FOR SURGURIES POSSIBLE JAYME SAMPSON 2010 [facility]: POSSIBLE SEIZURES 2013 REVIEW OF SYSTEMS REVIEWED BY: PROVIDER: LAUREN WOODSP . CONSTITUTIONAL: ANY CHANGE IN YOUR MEDICAL CONDITION? YES, PT WENT TO [facility] ER FOR GALL STONES 2 WEEKS AGO . CHILLS NO . FEVER NO . INFECTION: DO YOU HAVE NEW INFECTIONS? NO . DO YOU HAVE HISTORY OF MRSA? NO . MUSCULOSKELETAL: ANY NEW PATTERNS OF PAIN OR NUMBNESS? NO . GASTROENTEROLOGY: ANY NEW CHANGE IN BOWEL CONTROL? NO . GENITOURINARY: ANY NEW CHANGE IN BLADDER CONTROL? NO . IS THERE A CHANCE YOU COULD BE ? NO . HEMATOLOGY/LYMPH: DO YOU TAKE ANY BLOOD THINNERS? (FOR EXAMPLE- COUMADIN, PLAVIX, AGGRENOX, PLATEL, PRADAXA, OR XARELTO) NO . WHEN WAS YOUR LAST DOSE? DATE: TIME: . NEUROLOGY: HAVE YOU FALLEN IN THE PAST 12 MONTHS? NO . ANY NEW EXTREMITY NUMBNESS OR WEAKNESS? NO . CARDIOLOGY: DO YOU HAVE A PACEMAKER OR DEFIBRILLATOR? NO . RESPIRATORY: HAVE YOU BEEN SICK IN THE PAST WEEK? YES, GALL STONES . FEVER YES . FLU LIKE SYMPTOMS? NO . COUGH NO . INTEGUMENTARY: DO YOU HAVE ANY RASHES OR OPEN SORES? NO . ALLERGIC/IMMUNO: ARE YOU ALLERGIC TO IV DYE? NO . ANY NEW ALLERGIES? NO . PSYCHIATRIC: DO YOU HAVE THOUGHTS OF HURTING YOURSELF OR SOMEONE ELSE? NO . ARE YOU ABUSED, NEGLECTED, OR IN AN UNSAFE ENVIRONMENT? NO . ENDOCRINOLOGY: ARE YOU DIABETIC? NO . OTHER: DO YOU NEED ANY PRESCRIPTIONS? NO . IF YES, PLEASE LIST: ____ . ANY NEW PROBLEMS WITH YOUR MEDICATIONS? NO . WHEN DID YOU LAST EAT? ____ . WHEN DID YOU LAST DRINK? ____ . WHAT DID YOU LAST DRINK? ____ . NAME OF PERSON DRIVING YOU HOME? ____ . DO YOU HAVE ANY OTHER QUESTIONS OR CONCERNS NO . VITAL SIGNS WT 251 LBS, HT 64.5 IN, BMI 42.41 INDEX, BP 135/77 MM HG, HR 84 /MIN, RR 18 /MIN, TEMP 98.6 F, OXYGEN SAT % 95%, SAFE IN ENV? (Y/N) YES, NA INITIALS DC 08:50, REVIEWED BY: KG. EXAMINATION GENERAL EXAMINATION: GENERAL APPEARANCE:AWAKE,ALERT ,PLEAASANT . PSYCHAFFECT NORMAL . LUNGS:LUNG VELEZ ARE CLEAR TO AUSCULTATION BILATERALLY. GOOD MOVEMENT OF AIR . HEART:S1, S2 IN A REGULAR RATE AND RHYTHM. NO SIGNIFICANT MURMURS, RUBS OR GALLOPS NOTED . 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 BRINGS IN MEDICATIONS WHICH IS APPROPRIATE FOR WHAT WAS DISPENSED. RECENT URINE TOXICOLOGY REVIEWED. NO UNAUTHORIZED MEDICATIONS. NO ILLICIT SUBSTANCES AND PRESCRIBED MEDICATIONS WERE PRESENT. , RISKS AND BENEFITS OF NARCOTIC/OPIOD MEDICATIONS WERE REVIEWED WITH PATIENT - THIS INCLUDES BUT IS NOT LIMITED TO RISK OF DEPENDANCE/DEVELOPMENT OF ADDICTION, MOOD DISTURBANCE AND DEPRESSION, OSTEOPOROSIS, HORMONAL AND LABIDAL CHANGES, RESPIRATORY DEPRESSION AND . PATIENT IS ADVISED NOT TO DRIVE OR DRINK ALCOHOL WHILE ON THESE MEDICATIONS. PROCEDURE CODES FA211 ESTABILISHED PATIENT [facility] CHARGE DISPOSITION & COMMUNICATION FOLLOW UP 3 MONTHS ELECTRONICALLY SIGNED BY NASRIN BLACKMON ON 03/09/2019 AT 08:11 AM EDT DISCLAIMER : THIS IS A VISIT SUMMARY EXTRACTED FROM THE [facility] CHART. IT IS NOT A COPY OF THE [employer] PROGRESS NOTE. OZZIE
== END ==
LOC: M PAIN 08:45
PROVIDERS: ATTEND Nurse Practitioner Family
DX: M46.90 Unspecified inflammatory spondylopathy, site unspecified (principal); M54.5 Low back pain; G89.29 Other chronic pain; Z79.891 Long term (current) use of opiate analgesic; Z79.899 Other long term (current) drug therapy

== ENCOUNTER 2019-03-06 09:08 | Day surgery (SDC) | payer OTHER ==
[~2019-03-06] VITALS: Ht 165.1 cm; Wt 113.9 kg
[~2019-03-06 09:08] MED LIST changes: +BUPIVACAINE/EPIN 0.25% 30 ML VIAL As Ordered ONE; +LIDOCAINE 1% MDV 20ML VIAL SQ PRN; +LR 1,000 ML IV ONE
[2019-03-06] MEDS ORDERED: MIDAZOLAM INJ 2 MG/2 ML VIAL (J2250) As Ordered ONE (10:23)
[2019-03-06] MEDS ORDERED: fentaNYL 250 MCG/5 ML INJECTION (J3010) As Ordered ONE (10:23)
[2019-03-06] MEDS ORDERED: LIDOCAINE 2% INJ 100 MG/5 ML SDV (FOR ANES.) As Ordered ONE (10:30)
[2019-03-06] MEDS ORDERED: KETOROLAC 60 MG/2 ML VIAL (J1885) As Ordered ONE (10:30)
[2019-03-06] MEDS ORDERED: PROPOFOL 200 MG/20 ML VIAL As Ordered ONE ×2 (10:30→11:28)
[2019-03-06] MEDS ORDERED: dexameTHASONE 4 MG/ML 1ML VIAL (J1100) As Ordered ONE (10:30)
[2019-03-06] MEDS ORDERED: ONDANSETRON 4MG/2ML VIAL (J2405) As Ordered ONE ×2 (10:30→12:33)
[2019-03-06] MEDS ORDERED: ROCURONIUM BROMIDE 50 MG/5 ML VIAL As Ordered ONE (10:30)
[2019-03-06] MEDS ORDERED: SCOPOLAMINE 1MG TRANSDERMAL PATCH As Ordered ONE (10:59)
[2019-03-06] MEDS ORDERED: SCOPOLAMINE 1MG TRANSDERMAL PATCH TOP ONE (11:15)
[2019-03-06] MEDS ORDERED: SUGAMMADEX SODIUM 500 MG/5 ML VIAL (BRIDION) As Ordered ONE (11:42)
[2019-03-06] MEDS ORDERED: ePHEDrine SULFATE 25 MG/5 ML(5MG/ML) SYRINGE As Ordered ONE (11:42)
[2019-03-06] MEDS ORDERED: METOCLOPRAMIDE INJ 10MG/2ML VIAL (J2765) As Ordered ONE (11:50)
[2019-03-06] MEDS ORDERED: fentaNYL 100 MCG/2 ML INJECTION (J3010) As Ordered ONE (12:33)
[2019-03-06] MEDS: fentaNYL 100 MCG/2 ML INJECTION (J3010) IV PRN ×4 (12:36→13:10)
[2019-03-06] MEDS ORDERED: PROMETHAZINE INJ 25 MG/ML VIAL (J2550) As Ordered ONE (12:48)
[2019-03-06] MEDS ORDERED: ACETAMINOPHEN 1000MG 100ML IV BTL (OFIRMEV) (J0131 PER 10MG) As Ordered ONE (12:52)
[2019-03-06] MEDS ORDERED: ONDANSETRON 4MG/2ML VIAL (J2405) IV PRN (13:00)
[2019-03-06] MEDS ORDERED: PROMETHAZINE INJ 25 MG/ML VIAL (J2550) IV PRN (13:00)
[2019-03-06] MEDS ORDERED: oxyCODONE 5MG TAB PO PRN (13:00)
[2019-03-06] MEDS ORDERED: NORCO, ANEXSIA 5/325MG TABLET (HYDROcodone/ACETAMINOPHEN) PO PRN (13:00)
[2019-03-06] MEDS ORDERED: LR 1,000 ML IV SCH (13:00)
[2019-03-06] MEDS ORDERED: ACETAMINOPHEN *IV* 1,000 MG IV ONE ×2 (13:00)
[2019-03-06 16:00] VITALS: BP 147/74
--- NOTE | 2019-03-09 11:41 | RO ---
DATE OF PROCEDURE: 03/06/2019 PREOPERATIVE DIAGNOSIS: Chronic cholecystitis. POSTOPERATIVE DIAGNOSIS: Chronic cholecystitis. PROCEDURE: Laparoscopic cholecystectomy. SURGEON: Dr. Claude Romero. Filter Pulp Washer: None. ANESTHESIA: General ESTIMATED BLOOD LOSS: 15 mL. COMPLICATIONS: None. INDICATIONS FOR PROCEDURE: The patient is a 53-year-old female with right upper quadrant pain found to have chronic cholecystitis. Recommendation to proceed with laparoscopic possibly an open cholecystectomy. Risks and benefits of the procedure not limited but including bleeding, infection, hernia formation, damage to surrounding structure, need for further surgery discussed in detail with the patient and informed consent obtained, procedure was planned. DESCRIPTION OF PROCEDURE: Patient brought back to the operating room 3. After sufficient sedation, the abdomen was sterilely prepped and draped. Next time-out done to confirm proper patient, proper procedure. Following that a stab incision made in the left upper quadrant, Veress needle inserted and the abdomen was insufflated 2 mmHg. Next the 5 mm supraumbilical midline incision made and a 5 mm Optiview port was used to gain access to the abdomen. Once the abdomen was entered, then the Veress needle site was exam. There was no sign of any injury. The Veress needle was then removed. The gallbladder was adhered to the anterior abdominal wall. I was able to place 11 mm port subxiphoid, two 5 meters ports in the right upper quadrant. Using the abdominal wall as retraction of the gallbladder anteriorly. I was able to dissect down around the base removing all the omentum that was adhered along the belly of the gallbladder. Once I got towards the fundus there were significantly dense adhesions. I could not clearly identify any of the structures but was able to dissect around the neck of the gallbladder and cut through that and then placed two PDS Endoloops around it. The gallbladder was then removed from gallbladder fossa using electrocautery and then amputated off of the abdominal wall using electrocautery and while doing so got inside the gallbladder which revealed hydrops of the gallbladder as well as some pus. Once the gallbladder was removed, I aspirated all of the fluid that had drained out of it. I also left a 19-[employer] [place] drain in place to collect the residual fluid that leaked out. I brought out through the right-sided port site. The rest of the ports were then removed and the abdomen was desufflated. Skin incisions closed with #4-0 Vicryl subcu sutures. Drain was sutured with #2-0 silk. The abdomen was then cleaned and dried. Steri-Strips, 4x4 and tape were applied thus ending procedure.
== END 2019-03-06 16:25 | disposition home or self-care (01) ==
LOC: M SDC 09:08
PROVIDERS: ATTEND Surgery
DX: K81.2 Acute cholecystitis with chronic cholecystitis (principal); I10 Essential (primary) hypertension; E03.9 Hypothyroidism, unspecified; K21.9 Gastro-esophageal reflux disease without esophagitis; G47.30 Sleep apnea, unspecified; M32.10 Systemic lupus erythematosus, organ or system involvement unspecified; Z79.899 Other long term (current) drug therapy
CPT/HCPCS: 47562; 88304; J0131; J1100; J1885; J2250; J2405; J2765; J3010

== ENCOUNTER → 2019-03-24 | Outpatient (REF) | payer OTHER ==
[~2019-03-24] MED LIST changes: -BUPIVACAINE/EPIN 0.25% 30 ML VIAL As Ordered ONE; -LIDOCAINE 1% MDV 20ML VIAL SQ PRN; -LR 1,000 ML IV ONE
== END ==
LOC: M SFHCPLAZ 10:12
PROVIDERS: ATTEND Nurse Practitioner Family
DX: I10 Essential (primary) hypertension (principal); E03.9 Hypothyroidism, unspecified

== ENCOUNTER → 2019-05-22 | Outpatient (CLI) | payer OTHER ==
--- NOTE | 2019-06-04 01:53 | ECWPNPC ---
PATIENT NAME: ROSHAN WOODS : 1965 GENDER: FEMALE VISIT DATE: 05/22/2019 DISCHARGE DATE: 05/22/19 1027 VISIT LOCKED DATE TIME: PHYSICIAN: LAUREN DE LA ROSA RESOURCE: LAUREN DE LA ROSA REASON FOR APPOINTMENT 1. HIP/BACK HISTORY OF PRESENT ILLNESS HISTORY OF PRESENT ILLNESS: HERE FOR F/U OF CHRONIC LOW BACK PAIN.RATING PAIN VAS 3-7/10.HX OF ANKYLOSING SPONDYLOSIS,LUPUS AND RHEUMATOID ARTHRITIS.FINDS CURRENT CHRONIC PAIN MEDICATION IS HELPFUL.DENIES SIDE EFFECTS.CHIEF AREA OF PAIN IS LOW BACK WITH RADIATION INTO HIPS BILAT.HAS RESPONDED WELL TO RADIOFREQUENCY IN PAST.DISCUSSED REFFERAL TO [place] [facility] AND CONTINUE F/U APTS WITH ME FOR INJECTION THERAPY. PAIN THE PATIENT DESCRIBES THE PAIN... THE PATIENT DESCRIBES THE PAIN... THE PATIENT DESCRIBES THE PAIN... FALL RISK SCREENING: SCREENING :NO FALLS REPORTED IN THE LAST YEAR CURRENT MEDICATIONS TAKING PAIN RELIEVING RUB CREAM 1 DOSE EXTERNALLY NEEDED/ TAKING HYDROXYCHLOROQUINE SULFATE 200 MG TABLET 1 TABLET WITH FOOD OR MILK ORALLY TWICE A DAY TAKING LOSARTAN POTASSIUM 50 MG TABLET 1 TABLET ORALLY DAILY TAKING GABAPENTIN 300 MG CAPSULE 1 CAPSULE ORALLY THREE TIMES DAILY TAKING BACLOFEN 20 MG TABLET 1 CAP(S) ORALLY Q6H NEEDED TAKING SUCRALFATE 1 GM TABLET 1 TABLET ON AN EMPTY STOMACH ORALLY DAILY TAKING DICYCLOMINE HCL 10 MG CAPSULE 2 CAPSULES ORALLY FOUR TIMES A DAY NEEDED, NOTES: PRN TAKING VENTOLIN HFA AEROSOL SOLUTION 2 PUFFS NEEDED INHALATION EVERY 4 HOURS NEEDED TAKING OMEPRAZOLE 40 MG CAPSULE DELAYED RELEASE 1 CAPSULE ORALLY ONCE A DAY, NEEDED TAKING FLONASE INHALER 2 SPRAY IN EACH NOSTRIL NASALLY ONCE A DAY NEEDED TAKING CETIRIZINE HCL 10 MG TABLET 1 TABLET ORALLY ONCE A DAY TAKING SYNTHROID 100 MCG TABLET TAKE ONE TABLET BY MOUTH EVERY MORNING ON AN EMPTY STOMACH ORALLY ONCE A DAY TAKING IMITREX 50 MG TABLET 1 TAB ORALLY NEEDED/ FOR MIGRAINES 2-3 MIGRAINES PER MONTH TAKING HYDROCODONE-ACETAMINOPHEN 10-325 MG TABLET 1/2 TO 1 TAB ORALLY Q6-8 H MDD3 TAKING FENTANYL 25 MCG/HR PATCH 72 HOUR 1 PATCH TO SKIN TRANSDERMAL 1 PATCH C57F=[id number] TAKING OMEGA 3 1000 MG CAPSULE 1 CAPSULE ORALLY ONCE A DAY TAKING MAY USE TUMERIC ONE CAPSULE DAILY TAKING MAY USE WHEY PROTEIN POWDER NOT-TAKING ESTRACE 2 GRAMS VAGINAL 2 TIMES A WEEK NOT-TAKING LOSARTAN POTASSIUM 50 MG TABLET 1 TABLET ORALLY DAILY NOT-TAKING VITAMIN D 93527 UNIT CAPSULE 1 CAPSULE ORALLY ONCE A WEEK NOT-TAKING HUMIRA 10 MG/0.2ML PREFILLED SYRINGE KIT 40 MGS SUBCUTANEOUS EVERY 2 WEEKS, NOTES: PER PT ON HOLD MEDICATION LIST REVIEWED AND RECONCILED WITH THE PATIENT PAST MEDICAL HISTORY RA-FOLLOWS WITH RHEUMATOLOGY IN [place] SLEEP APNEA: WAS FOLLOWING WITH TERRY, HAS NOT BEEN WEARING CPAP FIBROMYALGIA HYPERTENSION LUPUS: RHEUMATOLOGY IN [place] GERD CHRONIC BACK PROBLEMS (BULDGING DISC) SOB WHEN IN SEVERE BACK PAIN; USES VENTOLIN INHALER COLONOSCOPY WITH EGD 2014 & 2016: DR. 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 IBD: FOLLOWS WITH GI, DR. PARVEZ LEHMAN HLA-B27 ANKYLOSING OF SI JOINT 10 YEAR ASCVD RISK 1.7% POSSIBLE SEIZURE DISORDER: PER PATIENT, WORK-UP WAS INCONCLUSIVE, WAS REFERRED TO NEUROLOGY IN [place] (ONLY ATTENDED INITIAL CONSULTATION, PATIENT DID NOT F/U) PARASITE - CRYPTOSPORION RODNEY ALLERGIES N.K.D.A. SURGICAL HISTORY TONSILLECTOMY 1979 HYSTERECTOMY, RIGHT OVARY 2004 LEFT ANKLE FX REPAIR 2001 LEFT ANKLE SCREW REMOVED 2002 RECTOCELE REPAIR 2012 RECTOCELE MESH REMOVAL [address] PETERSEN 12/2016 CT SCAN HEAD: NORMAL 05/19/14 CHOLECYSTECTOMY-DR. MOTT 03/06/19 FAMILY HISTORY FATHER: ALIVE 79 YRS MOTHER: ALIVE 72 YRS SIBLINGS: ALIVE 48 YRS, CONGENITAL HEART DISEASE, DIAGNOSED WITH UNSPECIFIED HEART DISEASE 1 SISTER(S) . 1 SON(S) , 2 DAUGHTER(S) - HEALTHY. SOCIAL HISTORY GENERAL: TOBACCO USE ARE YOU A:NONSMOKER NEVER SMOKER HIV / HEP-C SCREENING HIV TEST OFFERED TO PATIENT:YES DATE OFFERED:10/10/2016 TEST ACCEPTED:NO HEP-C TEST OFFERED TO PATIENT:YES DATE OFFERED:10/10/2016 REASON:PATIENT DECLINED HAD SCREENING IN THE PAST. TEST ACCEPTED:NO REASON:PATIENT DECLINED OTHERS AT HOME: LIVES WITH FRIEND. EDUCATION 12TH GRADUATE 2 YEARS COLLEGE. DIET: VEGAN. LANGUAGE LANGUAGES SPOKEN:PRYDEINIG DOMESTIC VIOLENCE DO YOU FEEL SAFE IN YOUR ENVIRONMENT?YES NEW PATIENT PAIN DIARY TODAY'S VISIT NOTES, FROM 0-10, WHAT LEVEL IS YOUR PAIN TODAY? 0. BMI CARE GOAL FOLLOW-UP ABOVE NORMAL BMI FOLLOW-UPDIETARY NEEDS EDUCATION, EXERCISE PROMOTION: STRENGTH TRAINING RECREATIONAL DRUG USE: NEVER DRUG USE?NO EXERCISE: NONE. LEARNING BARRIERS / SPECIAL NEEDS CHANGE FROM LAST VISIT?NO BARRIERS TO LEARNING?NO HEARING IMPAIRED?NO VISION IMPAIRED?YES COGNITIVELY IMPAIRED?NO :CORRECTIVE LENSES READINESS TO LEARN?YES LEARNING PREFERENCES?NO LEARNING CAPABILITIES PRESENT?YES EMOTIONAL BARRIERS?NO SPECIAL DEVICES?NO TREASURY ACCOUNTANT NEEDED?NO PAIN CLINIC PFS, CLERGY, PUBLIC HEALTH REFERRALS PFS REFERRAL NEEDED?NO CLERGY REFERRAL NEEDED?NO PUBLIC HEALTH REFERRAL NEEDED?NO WAS THE PROVIDER NOTIFIED OF ANY PERTINENT INFO?YES HAS THE PATIENT BEEN EDUCATED REGARDING HIS/HER PLAN OF CARE?YES HAS THE PATIENT BEEN EDUCATED REGARDING PAIN, THE RISK FOR PAIN, THE IMPORTANCE OF EFFECTIVE PAIN MANAGEMENT, AND THE PAIN ASSESSMENT PROCESS?YES LATEX QUESTIONNAIRE LATEX ALLERGY : HAVE YOU EVER DEVELOPED ANY TYPE OF REACTION AFTER HANDLING LATEX PRODUCTS SUCH RUBBER GLOVES, CONDOMS, DIAPHRAGMS, BALLOONS, SOCKS, OR UNDERWEAR?NO LATEX ALLERGY : HAVE YOU EVER DEVELOPED ANY TYPE OF REACTION DURING OR AFTER DENTAL APPOINTMENT, VAGINAL/RECTAL EXAMINATION, SURGICAL PROCEDURE, OR ANY OTHER EXPOSURE?NO DATE ASKED : 11/21/2018 LATEX RISK : HAVE YOU EVER HAD ANY DIFFICULTY BREATHING OR HIVES AFTER EATING OR HANDLING ANY FRUITS, OR VEGETABLES; SUCH KIWI, BANANAS, STONE FRUITS, OR CHESTNUTSNO LATEX RISK : DO YOU HAVE A PREVIOUS PERSONAL HISTORY OF MORE THAN NINE SURGERIES, SPINA BIFIDA, OR REPEATED CATHERIZATIONS? NO LATEX RISK : ARE YOU FREQUENTLY EXPOSED TO LATEX PRODUCTS IN YOUR OCCUPATION?NO CAFFEINE CAFFEINE USE?YES 3 /DAY ADVANCE DIRECTIVE ADVANCE DIRECTIVE DISCUSSED WITH PATIENT:YES PT DOES NOT WANT HCP INFO AT THIS TIME, DECLINES ASSISTANCE SCIENTOLOGY [id number] SI[facility] MARITAL STATUS: SINGLE. ALCOHOL SCREENING DID YOU HAVE A DRINK CONTAINING ALCOHOL IN THE PAST YEAR?NO POINTS0 INTERPRETATIONNEGATIVE OCCUPATION: HOMEMAKER. SEXUAL HX HAD SEX IN THE LAST 12 MONTHS (VAGINAL, ORAL, OR ANAL)?YES WITHMEN ONLY PREVENTION STRATEGIES DISCUSSED:OTHER USE PROTECTION?NO LMP:OVER 20 YEARS HAVE YOU EVER HAD AN STD?NO REVIEWED 02/11/18 1054 BVREVIEWED WITH PATIENT 06/23/18 0846 JSREVIEWED WITH PATIENT 08/22/18 0929REVIEWED WITH PT 11/21/18 0849 BVREVIEWED WITH PATIENT 05/22/19 0947 NLJ. HOSPITALIZATION/MAJOR DIAGNOSTIC PROCEDURE TWICE FOR CELLULITUS MOST RESCENTLY 3YEARS AGO ABOVE FOR SURGURIES POSSIBLE AJYME SAMPSON 2010 [place]: POSSIBLE SEIZURES 2014 REVIEW OF SYSTEMS REVIEWED BY: PROVIDER: LAUREN ALEXANDRA . CONSTITUTIONAL: ANY CHANGE IN YOUR MEDICAL CONDITION? NO . CHILLS NO . FEVER NO . INFECTION: DO YOU HAVE NEW INFECTIONS? NO . DO YOU HAVE HISTORY OF MRSA? NO . MUSCULOSKELETAL: ANY NEW PATTERNS OF PAIN OR NUMBNESS? NO . GASTROENTEROLOGY: ANY NEW CHANGE IN BOWEL CONTROL? NO . GENITOURINARY: ANY NEW CHANGE IN BLADDER CONTROL? NO . IS THERE A CHANCE YOU COULD BE ? NO . HEMATOLOGY/LYMPH: DO YOU TAKE ANY BLOOD THINNERS? (FOR EXAMPLE- COUMADIN, PLAVIX, AGGRENOX, PLATEL, PRADAXA, OR XARELTO) NO . WHEN WAS YOUR LAST DOSE? DATE: TIME: . NEUROLOGY: HAVE YOU FALLEN IN THE PAST 12 MONTHS? NO . ANY NEW EXTREMITY NUMBNESS OR WEAKNESS? NO . CARDIOLOGY: DO YOU HAVE A PACEMAKER OR DEFIBRILLATOR? NO . RESPIRATORY: HAVE YOU BEEN SICK IN THE PAST WEEK? NO . FEVER NO . FLU LIKE SYMPTOMS? NO . COUGH NO . INTEGUMENTARY: DO YOU HAVE ANY RASHES OR OPEN SORES? NO . ALLERGIC/IMMUNO: ARE YOU ALLERGIC TO IV DYE? NO . ANY NEW ALLERGIES? NO . PSYCHIATRIC: DO YOU HAVE THOUGHTS OF HURTING YOURSELF OR SOMEONE ELSE? NO . ARE YOU ABUSED, NEGLECTED, OR IN AN UNSAFE ENVIRONMENT? NO . ENDOCRINOLOGY: ARE YOU DIABETIC? NO . OTHER: DO YOU NEED ANY PRESCRIPTIONS? YES . IF YES, PLEASE LIST: ____JUST NEEDS MEDS ORERED BY PAIN CENTER REFILLED . ANY NEW PROBLEMS WITH YOUR MEDICATIONS? NO . WHEN DID YOU LAST EAT? ____ . WHEN DID YOU LAST DRINK? ____ . WHAT DID YOU LAST DRINK? ____ . NAME OF PERSON DRIVING YOU HOME? ____ . DO YOU HAVE ANY OTHER QUESTIONS OR CONCERNS NO . VITAL SIGNS WT 254 LBS, HT 64.5 IN, BMI 42.92 INDEX, BP 140/78 MM HG, HR 71 /MIN, RR 18 /MIN, TEMP 97.6 F, OXYGEN SAT % 95%, SAFE IN ENV? (Y/N) YES, NA INITIALS NH 09:39, REVIEWED BY: DEMOND. EXAMINATION GENERAL EXAMINATION: GENERALAWAKE,ALERT ,PLEAASANT . PSYCHAFFECT NORMAL . LUNGS:LUNG VELEZ ARE CLEAR TO AUSCULTATION BILATERALLY. GOOD MOVEMENT OF AIR . HEART:S1, S2 IN A REGULAR RATE AND RHYTHM. NO SIGNIFICANT MURMURS, RUBS OR GALLOPS NOTED . 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 BRINGS IN MEDICATIONS WHICH IS APPROPRIATE FOR WHAT WAS DISPENSED. RECENT URINE TOXICOLOGY REVIEWED. NO UNAUTHORIZED MEDICATIONS. NO ILLICIT SUBSTANCES AND PRESCRIBED MEDICATIONS WERE PRESENT. URINE TOX TODAY, RISKS AND BENEFITS OF NARCOTIC/OPIOD MEDICATIONS WERE REVIEWED WITH PATIENT - THIS INCLUDES BUT IS NOT LIMITED TO RISK OF DEPENDANCE/DEVELOPMENT OF ADDICTION, MOOD DISTURBANCE AND DEPRESSION, OSTEOPOROSIS, HORMONAL AND LABIDAL CHANGES, RESPIRATORY DEPRESSION AND . PATIENT IS ADVISED NOT TO DRIVE OR DRINK ALCOHOL WHILE ON THESE MEDICATIONS. REFERRAL TO:[facility] [place] REASON:CHRONIC MEDICATION MANAGEMENT FOR CHRONIC PAIN ASSOCIATED W ANKYLOSING SPONDYLITIS ,LUPUS,RHEUMATOID ARTHRITIS PROCEDURE CODES FA211 ESTABILISHED PATIENT [facility] F[facility] CHARGE DISPOSITION & COMMUNICATION FOLLOW UP 2 MONTHS (REASON: TALK ABOUT PROCEDURES) ELECTRONICALLY SIGNED BY NASRIN BLACKMON ON 06/03/2019 AT 01:03 PM EDT DISCLAIMER : THIS IS A VISIT SUMMARY EXTRACTED FROM THE [email or web address] CHART. IT IS NOT A COPY OF THE [employer] PROGRESS NOTE. OZZIE
== END ==
LOC: M PAIN 09:15
PROVIDERS: ATTEND Nurse Practitioner Family
DX: M43.06 Spondylolysis, lumbar region (principal); M06.9 Rheumatoid arthritis, unspecified; M45.0 Ankylosing spondylitis of multiple sites in spine; G89.29 Other chronic pain; G47.33 Obstructive sleep apnea (adult) (pediatric); M79.7 Fibromyalgia; I10 Essential (primary) hypertension; M32.9 Systemic lupus erythematosus, unspecified; K21.9 Gastro-esophageal reflux disease without esophagitis; Z86.19 Personal history of other infectious and parasitic diseases; E66.01 Morbid (severe) obesity due to excess calories; Z68.41 Body mass index [BMI] 40.0-44.9, adult; Z79.891 Long term (current) use of opiate analgesic; Z79.899 Other long term (current) drug therapy

== ENCOUNTER → 2019-06-11 | Outpatient (CLI) | payer OTHER ==
[~2019-06-11] MED LIST changes: +FAMO1TAB25 PO; +ISOVUE-370 76% 100ML VIAL (Q9967) As Ordered ONE; +ODOR100T3 PO; +OMEG10005 PO; -OMEP40CA2 PO; +OMEP40CA97 PO; +RA T500C2 PO; +SUCR1TAB56 PO
--- NOTE | 2019-06-15 09:02 | REP ---
Soft-tissue neck CT study with IV contrast: History: Benign neoplasm of the parotid gland. Enlarging left parotid mass. Preoperative planning. CT contrast dose: Because of a initial intravenous line malfunction, the patient was recalled and rescanned. The study was accomplished on June 11 and June 12, 2019. Contrast enhancement dose is 75 ml of intravenous ProHance. Comparison CT study is from July 22, 2018. CT findings: Preliminary digital third hand radiographs are unremarkable. There is a fairly well circumscribed slightly lobulated enhancing mass in the anterior aspect superficial lobe of the left parotid gland measuring 19 x 16 x 14 mm. This appears slightly more prominent than on the comparison CT study done without contrast July 22, 2018. The right parotid gland is unremarkable. No other left parotid lesion is seen. Submandibular glands are normal and symmetric. There is no visible cervical lymphadenopathy. Thyroid lobes are normal and symmetric. When no cyst or other mass lesion is seen. The upper mediastinum is unremarkable. Lung apices are clear. No bony destructive lesion is seen. Visualized paranasal sinuses are clear. No intraorbital lesion. No vascular abnormality is seen. In the cervical spine, there is a large uncovertebral spurring on the right side at C3-4. Impression: Nodular mass in the left anterior parotid gland consistent with benign or malignant neoplasm, versus hypertrophied intraparotid lymph node. No evidence of adenopathy. Parotid lesion measures 19 mm in greatest diameter. There is neural foraminal narrowing on the right in the cervical spine at C3-4 due to a large uncovertebral spur. Electronically Signed by George Peraza MD 06/15/2019 09:05 A
== END ==
LOC: M RAD 16:31
PROVIDERS: ATTEND Otolaryngology
DX: D11.0 Benign neoplasm of parotid gland (principal); M46.02 Spinal enthesopathy, cervical region
CPT/HCPCS: 70491; Q9967

== ENCOUNTER → 2019-07-22 | Outpatient (CLI) | payer OTHER ==
[~2019-07-22] MED LIST changes: -FAMO1TAB25 PO; -ISOVUE-370 76% 100ML VIAL (Q9967) As Ordered ONE; -ODOR100T3 PO; -OMEG10005 PO; -RA T500C2 PO; -SUCR1TAB56 PO
--- NOTE | 2019-08-12 04:32 | ECWPNPC ---
PATIENT NAME: ROSHAN WOODS : 1965 GENDER: FEMALE VISIT DATE: 07/22/2019 DISCHARGE DATE: 07/22/19 1028 VISIT LOCKED DATE TIME: PHYSICIAN: LAUREN DE LA ROSA RESOURCE: LAUREN DE LA ROSA REASON FOR APPOINTMENT 1. HIP/BACK HISTORY OF PRESENT ILLNESS HISTORY OF PRESENT ILLNESS: HERE FOR F/U OF CHRONIC LBP,HIP PAIN AND NECK PAIN.PAIN HAS ESCALATED OVER THE PAST FEW MONTHS WITH CHIEF AREA OF PAIN LOW BACK.ATTENDING [facility] PALLI[facility]IVE CARE FOR CHRONIC MEDICATION MANAGEMENT AND THAT IS GOING WELL.WE HAVE DISCUSSED TRYING RADIOFREQUENCY. PAIN THE PATIENT DESCRIBES THE PAIN... FALL RISK SCREENING: SCREENING :NO FALLS REPORTED IN THE LAST YEAR CURRENT MEDICATIONS TAKING PAIN RELIEVING RUB CREAM 1 DOSE EXTERNALLY NEEDED/ TAKING HYDROXYCHLOROQUINE SULFATE 200 MG TABLET 1 TABLET WITH FOOD OR MILK ORALLY TWICE A DAY TAKING SUCRALFATE 1 GM TABLET 1 TABLET ON AN EMPTY STOMACH ORALLY DAILY TAKING DICYCLOMINE HCL 10 MG CAPSULE 2 CAPSULES ORALLY FOUR TIMES A DAY NEEDED, NOTES: PRN TAKING VENTOLIN HFA AEROSOL SOLUTION 2 PUFFS NEEDED INHALATION EVERY 4 HOURS NEEDED TAKING OMEPRAZOLE 40 MG CAPSULE DELAYED RELEASE 1 CAPSULE ORALLY ONCE A DAY, NEEDED TAKING FLONASE INHALER 2 SPRAY IN EACH NOSTRIL NASALLY ONCE A DAY NEEDED TAKING CETIRIZINE HCL 10 MG TABLET 1 TABLET ORALLY ONCE A DAY TAKING SYNTHROID 100 MCG TABLET TAKE ONE TABLET BY MOUTH EVERY MORNING ON AN EMPTY STOMACH ORALLY ONCE A DAY TAKING IMITREX 50 MG TABLET 1 TAB ORALLY NEEDED/ FOR MIGRAINES 2-3 MIGRAINES PER MONTH TAKING OMEGA 3 1000 MG CAPSULE 1 CAPSULE ORALLY ONCE A DAY TAKING MAY USE TUMERIC ONE CAPSULE DAILY TAKING MAY USE WHEY PROTEIN POWDER TAKING GABAPENTIN 300 MG CAPSULE 1 CAPSULE ORALLY THREE TIMES DAILY TAKING BACLOFEN 20 MG TABLET 1 CAP(S) ORALLY Q6H NEEDED TAKING FENTANYL 25 MCG/HR PATCH 72 HOUR 1 PATCH TO SKIN TRANSDERMAL 1 PATCH W01X=PJD TAKING HYDROCODONE-ACETAMINOPHEN 10-325 MG TABLET 1/2 TO 1 TAB ORALLY Q6-8 H MDD3 TAKING LOSARTAN POTASSIUM 50 MG TABLET 1 TABLET ORALLY DAILY NOT-TAKING ESTRACE 2 GRAMS VAGINAL 2 TIMES A WEEK NOT-TAKING LOSARTAN POTASSIUM 50 MG TABLET 1 TABLET ORALLY DAILY NOT-TAKING VITAMIN D 89312 UNIT CAPSULE 1 CAPSULE ORALLY ONCE A WEEK NOT-TAKING HUMIRA 10 MG/0.2ML PREFILLED SYRINGE KIT 40 MGS SUBCUTANEOUS EVERY 2 WEEKS, NOTES: PER PT ON HOLD MEDICATION LIST REVIEWED AND RECONCILED WITH THE PATIENT PAST MEDICAL HISTORY [facility]: WAS FOLLOWING WITH TERRY, HAS NOT BEEN WEARING CPAP FIBROMYALGIA HYPERTENSION LUPUS: RHEUMATOLOGY IN [place] GERD CHRONIC BACK PROBLEMS (BULDGING DISC) SOB WHEN IN SEVERE BACK PAIN; USES VENTOLIN INHALER COLONOSCOPY WITH EGD 2014 & 2016: DR. 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 IBD: FOLLOWS WITH GI, DR. PARVEZ LEHMAN HLA-[id number] ANKYLOSING OF SI JOINT 10 YEAR ASCVD RISK 1.7% POSSIBLE SEIZURE DISORDER: PER PATIENT, WORK-UP WAS INCONCLUSIVE, WAS REFERRED TO NEUROLOGY IN [place] (ONLY ATTENDED INITIAL CONSULTATION, PATIENT DID NOT F/U) PARASITE - CRYPTOSPORION RODNEY ALLERGIES N.K.D.A. SURGICAL HISTORY TONSILLECTOMY 1979 HYSTERECTOMY, RIGHT OVARY 2004 LEFT ANKLE FX REPAIR 2001 LEFT ANKLE SCREW REMOVED 2002 RECTOCELE REPAIR 2012 RECTOCELE MESH REMOVAL [address] PETERSEN 12/2016 CT SCAN HEAD: NORMAL 05/19/14 CHOLECYSTECTOMY-DR. MOTT 03/06/19 FAMILY HISTORY FATHER: ALIVE 79 YRS MOTHER: ALIVE 72 YRS SIBLINGS: ALIVE 48 YRS, CONGENITAL HEART DISEASE, DIAGNOSED WITH UNSPECIFIED HEART DISEASE 1 SISTER(S) . 1 SON(S) , 2 DAUGHTER(S) - HEALTHY. SOCIAL HISTORY GENERAL: TOBACCO USE ARE YOU A:NONSMOKER NEVER SMOKER HIV / HEP-C SCREENING HIV TEST OFFERED TO PATIENT:YES DATE OFFERED:10/10/2016 TEST ACCEPTED:NO HEP-C TEST OFFERED TO PATIENT:YES DATE OFFERED:10/10/2016 REASON:PATIENT DECLINED HAD SCREENING IN THE PAST. TEST ACCEPTED:NO REASON:PATIENT DECLINED OTHERS AT HOME: LIVES WITH FRIEND. EDUCATION 12TH GRADUATE 2 YEARS COLLEGE. DIET: VEGAN. LANGUAGE LANGUAGES SPOKEN:RWANDAN DOMESTIC VIOLENCE DO YOU FEEL SAFE IN YOUR ENVIRONMENT?YES NEW PATIENT PAIN DIARY TODAY'S VISIT NOTES, FROM 0-10, WHAT LEVEL IS YOUR PAIN TODAY? 0. BMI CARE GOAL FOLLOW-UP ABOVE NORMAL BMI FOLLOW-UPDIETARY NEEDS EDUCATION, EXERCISE PROMOTION: STRENGTH TRAINING RECREATIONAL DRUG USE: NEVER DRUG USE?NO EXERCISE: NONE. 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 PAIN CLINIC PFS, CLERGY, PUBLIC HEALTH REFERRALS PFS REFERRAL NEEDED?NO CLERGY REFERRAL NEEDED?NO PUBLIC HEALTH REFERRAL NEEDED?NO WAS THE PROVIDER NOTIFIED OF ANY PERTINENT INFO?YES HAS THE PATIENT BEEN EDUCATED REGARDING HIS/HER PLAN OF CARE?YES HAS THE PATIENT BEEN EDUCATED REGARDING PAIN, THE RISK FOR PAIN, THE IMPORTANCE OF EFFECTIVE PAIN MANAGEMENT, AND THE PAIN ASSESSMENT PROCESS?YES LATEX QUESTIONNAIRE LATEX ALLERGY : HAVE YOU EVER DEVELOPED ANY TYPE OF REACTION AFTER HANDLING LATEX PRODUCTS SUCH RUBBER GLOVES, CONDOMS, DIAPHRAGMS, BALLOONS, SOCKS, OR UNDERWEAR?NO LATEX ALLERGY : HAVE YOU EVER DEVELOPED ANY TYPE OF REACTION DURING OR AFTER DENTAL APPOINTMENT, VAGINAL/RECTAL EXAMINATION, SURGICAL PROCEDURE, OR ANY OTHER EXPOSURE?NO LATEX RISK : HAVE YOU EVER HAD ANY DIFFICULTY BREATHING OR HIVES AFTER EATING OR HANDLING ANY FRUITS, OR VEGETABLES; SUCH KIWI, BANANAS, STONE FRUITS, OR CHESTNUTSNO LATEX RISK : DO YOU HAVE A PREVIOUS PERSONAL HISTORY OF MORE THAN NINE SURGERIES, SPINA BIFIDA, OR REPEATED CATHERIZATIONS? NO LATEX RISK : ARE YOU FREQUENTLY EXPOSED TO LATEX PRODUCTS IN YOUR OCCUPATION?NO DATE ASKED : 07/22/2019 CAFFEINE CAFFEINE USE?YES 3 /DAY ADVANCE DIRECTIVE ADVANCE DIRECTIVE DISCUSSED WITH PATIENT:YES PT DOES NOT WANT HCP INFO AT THIS TIME, DECLINES ASSISTANCE CHRISTIAN [id number] RASTAFARIAN MARITAL STATUS: SINGLE. ALCOHOL SCREENING DID YOU HAVE A DRINK CONTAINING ALCOHOL IN THE PAST YEAR?NO POINTS0 INTERPRETATIONNEGATIVE OCCUPATION: HOMEMAKER. SEXUAL HX HAD SEX IN THE LAST 12 MONTHS (VAGINAL, ORAL, OR ANAL)?YES WITHMEN ONLY PREVENTION STRATEGIES DISCUSSED:OTHER USE PROTECTION?NO LMP:OVER 20 YEARS HAVE YOU EVER HAD AN STD?NO REVIEWED 02/11/18 1054 BVREVIEWED WITH PATIENT 06/23/18 0846 JSREVIEWED WITH PATIENT 08/22/18 0929REVIEWED WITH PT 11/21/18 0849 BVREVIEWED WITH PATIENT 05/22/19 0947 MICHAELJ. HOSPITALIZATION/MAJOR DIAGNOSTIC PROCEDURE TWICE FOR CELLULITUS MOST RESCENTLY 3YEARS AGO ABOVE FOR SURGURIES POSSIBLE JAYME SAMPSON 2010 [employer]: POSSIBLE SEIZURES 2013 REVIEW OF SYSTEMS REVIEWED BY: PROVIDER: LAUREN ALEXANDRA . CONSTITUTIONAL: ANY CHANGE IN YOUR MEDICAL CONDITION? NO . CHILLS NO . FEVER NO . INFECTION: DO YOU HAVE NEW INFECTIONS? YES, FEVER AND SICKNESS HAS RESOLVED, NO SYMPTOMS TODAY . DO YOU HAVE HISTORY OF MRSA? NO . MUSCULOSKELETAL: ANY NEW PATTERNS OF PAIN OR NUMBNESS? NO . GASTROENTEROLOGY: ANY NEW CHANGE IN BOWEL CONTROL? NO . GENITOURINARY: ANY NEW CHANGE IN BLADDER CONTROL? NO . IS THERE A CHANCE YOU COULD BE ? NO . HEMATOLOGY/LYMPH: DO YOU TAKE ANY BLOOD THINNERS? (FOR EXAMPLE- COUMADIN, PLAVIX, AGGRENOX, PLATEL, PRADAXA, OR XARELTO) NO . WHEN WAS YOUR LAST DOSE? DATE: TIME: . NEUROLOGY: HAVE YOU FALLEN IN THE PAST 12 MONTHS? NO . ANY NEW EXTREMITY NUMBNESS OR WEAKNESS? NO . CARDIOLOGY: DO YOU HAVE A PACEMAKER OR DEFIBRILLATOR? NO . RESPIRATORY: HAVE YOU BEEN SICK IN THE PAST WEEK? YES, SYMPTOMS RESOLVED . FEVER NO . FLU LIKE SYMPTOMS? NO . COUGH NO . INTEGUMENTARY: DO YOU HAVE ANY RASHES OR OPEN SORES? NO . ALLERGIC/IMMUNO: ARE YOU ALLERGIC TO IV DYE? NO . ANY NEW ALLERGIES? NO . PSYCHIATRIC: DO YOU HAVE THOUGHTS OF HURTING YOURSELF OR SOMEONE ELSE? NO . ARE YOU ABUSED, NEGLECTED, OR IN AN UNSAFE ENVIRONMENT? NO . ENDOCRINOLOGY: ARE YOU DIABETIC? NO . OTHER: DO YOU NEED ANY PRESCRIPTIONS? NO . IF YES, PLEASE LIST: ____ . ANY NEW PROBLEMS WITH YOUR MEDICATIONS? NO . WHEN DID YOU LAST EAT? ____ . WHEN DID YOU LAST DRINK? ____ . WHAT DID YOU LAST DRINK? ____ . NAME OF PERSON DRIVING YOU HOME? ____ . DO YOU HAVE ANY OTHER QUESTIONS OR CONCERNS NO . VITAL SIGNS WT 249.8 LBS, HT 64.5 IN, BMI 42.21 INDEX, BP 141/74 MM HG, HR 76 /MIN, RR 18 /MIN, TEMP 95.6 F, OXYGEN SAT % 95%, SAFE IN ENV? (Y/N) Y, NA INITIALS AW 0940, REVIEWED BY: CYNTHIA. EXAMINATION GENERAL EXAMINATION: GENERALAWAKE,ALERT ,PLEAASANT . PSYCHAFFECT NORMAL . LUNGS:LUNG VELEZ ARE CLEAR TO AUSCULTATION BILATERALLY. GOOD MOVEMENT OF AIR . HEART:S1, S2 IN A REGULAR RATE AND RHYTHM. NO SIGNIFICANT MURMURS, RUBS OR GALLOPS NOTED . 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 WITHOUT [id number] NOTES: DUE TO PATIENTS HX OF ANKYLOSING SPONDYLOSIS AND INCREASE IN LOW BACK PAIN PATIENT WILL NEED MRI L/S SPINE.WE WILL EVALUATE MRI AT F/U AND DISCUSS TREATMENT OPTIONS. PROCEDURE CODES FA211 ESTABILISHED PATIENT [facility] CHARGE DISPOSITION & COMMUNICATION FOLLOW UP 4-6WKS MRI EVAL ELECTRONICALLY SIGNED BY NASRIN BLACKMON ON 08/11/2019 AT 08:51 AM EST DISCLAIMER : THIS IS A VISIT SUMMARY EXTRACTED FROM THE [employer] CHART. IT IS NOT A COPY OF THE [employer] PROGRESS NOTE. OZZIE
== END ==
LOC: M PAIN 09:30
PROVIDERS: ATTEND Nurse Practitioner Family
DX: M43.06 Spondylolysis, lumbar region (principal); M06.9 Rheumatoid arthritis, unspecified; M45.0 Ankylosing spondylitis of multiple sites in spine

== ENCOUNTER → 2019-08-11 | Outpatient (CLI) | payer OTHER ==
--- NOTE | 2019-08-11 08:56 | REP ---
MRI LUMBAR SPINE WITHOUT CONTRAST: HISTORY: Spondylosis of the lumbar spine. Worsening low back pain. Comparison study August 31, 2009. TECHNIQUE: Sagittal and axial T1- and T2-weighted scans are acquired in the usual fashion with and without fat saturation. Sequences include spin echo, turbo spin-echo, and STIR imaging sequences. MRI FINDINGS: Lumbar vertebral body heights are preserved. Alignment is normal. Normal caliber aorta is seen. No extra vertebral abnormality is appreciated. The tip of the conus medullaris is normal in position and appearance at L1-L2. There is no evidence of spondylolysis or spondylolisthesis. Axial and sagittal images at L1-2, L2-3, and L3-4 are unremarkable. At L4-5, there is mild degenerative disc narrowing. There is mild bilateral foraminal disc bulging but no significant neural foraminal narrowing is seen. There is no evidence of spinal stenosis. Mild facet hypertrophy is present bilaterally at L4-5. This is somewhat more pronounced than on the 2009 prior study. No focal disc protrusion. At L5-S1, there is also facet hypertrophy bilaterally, which is essentially unchanged. No disc protrusion is seen. There is mild left-sided neural foraminal narrowing due to facet hypertrophy. IMPRESSION: Mild degenerative disc and osteoarthritic facet change at L4-5 and L5-S1. The facet hypertrophy is slightly more prominent bilaterally at L4-5 when compared to the prior study. There is mild left-sided foraminal narrowing at L5-S1. Electronically Signed by George Peraza MD 08/11/2019 10:45 A
== END ==
LOC: M RAD 06:34
PROVIDERS: ATTEND Nurse Practitioner Family
DX: M43.06 Spondylolysis, lumbar region (principal); M43.07 Spondylolysis, lumbosacral region

== ENCOUNTER → 2019-08-18 | Outpatient (REF) | payer OTHER ==
[2019-08-18 12:41] LABS: BASO % 0.6 % (0.0-1.0); EOS # 0.2 10^3/uL (0.0-0.5); EOS % 3.3 % (0.0-3.0); HEMATOCRIT 47.3 % (36.0-47.0); LYMPH # 2.2 10^3/uL (1.5-5.0); LYMPH % 35.1 % (24.0-44.0); MEAN CORPUSCULAR HEMOGLOBIN 29.4 pg (27.0-33.0); MEAN CORPUSCULAR HGB CONC 31.7 g/dl (32.0-36.5); MEAN CORPUSCULAR VOLUME 92.6 fl (80.0-96.0); MONO # 0.4 10^3/uL (0.0-0.8); MONO % 6.3 % (0.0-5.0); NEUTROPHILS # 3.5 10^3/uL (1.5-8.5); NEUTROPHILS % 54.4 % (36.0-66.0); PLATELET COUNT, AUTOMATED 287 10^3/uL (150-450); RED BLOOD COUNT 5.11 10^6/uL (4.00-5.40); WHITE BLOOD COUNT 6.4 10^3/uL (4.0-10.0)
[2019-08-18 12:49] LABS: INR 1.02; PROTHROMBIN TIME 13.1 SECONDS (11.8-14.0)
[2019-08-18 12:50] LABS: ALBUMIN 4.1 GM/DL (3.2-5.2); ALT/SGPT 31 U/L (12-78); BILIRUBIN,TOTAL 0.8 MG/DL (0.2-1.0); BLOOD UREA NITROGEN 8 MG/DL (7-18); CALCIUM LEVEL 9.3 MG/DL (8.5-10.1); CARBON DIOXIDE LEVEL 34 MEQ/L (21-32); CHLORIDE LEVEL 105 MEQ/L (98-107); CREATININE FOR GFR 0.89 MG/DL (0.55-1.30); GLOMERULAR FILTRATION RATE > 60.0 (>51); GLUCOSE, FASTING 104 MG/DL (70-100); PARTIAL THROMBOPLASTIN TIME 34.4 SECONDS (25.0-38.4); POTASSIUM SERUM 4.3 MEQ/L (3.5-5.1); SODIUM LEVEL 142 MEQ/L (136-145); TOTAL PROTEIN 7.6 GM/DL (6.4-8.2)
== END ==
LOC: M SFHCPLAZ 09:39
PROVIDERS: ATTEND Physician Assistant Medical
DX: K21.0 Gastro-esophageal reflux disease with esophagitis (principal); K76.0 Fatty (change of) liver, not elsewhere classified

== ENCOUNTER 2019-08-27 08:31 | Day surgery (SDC) | payer OTHER ==
[~2019-08-27] VITALS: Ht 165.1 cm; Wt 119.3 kg
[~2019-08-27 08:31] MED LIST changes: +FAMO1TAB25 PO; +LIDOCAINE 1% MDV 20ML VIAL SQ PRN; +LR 1,000 ML IV ONE; +ODOR100T3 PO; +OMEG10005 PO; +RA T500C2 PO; +SUCR1TAB56 PO; +dexameTHASONE 4 MG/ML 1ML VIAL (J1100) IV ONE
[2019-08-27] MEDS ORDERED: dexameTHASONE 4 MG/ML 1ML VIAL (J1100) As Ordered ONE (09:35)
[2019-08-27] MEDS ORDERED: PROPOFOL 200 MG/20 ML VIAL As Ordered ONE ×2 (09:35→12:08)
[2019-08-27] MEDS ORDERED: ROCURONIUM BROMIDE 50 MG/5 ML VIAL As Ordered ONE (09:35)
[2019-08-27] MEDS ORDERED: LIDOCAINE 2% INJ 100 MG/5 ML SDV (FOR ANES.) As Ordered ONE (09:35)
[2019-08-27] MEDS ORDERED: ONDANSETRON 4MG/2ML VIAL (J2405) As Ordered ONE ×2 (09:35→17:37)
[2019-08-27] MEDS ORDERED: SCOPOLAMINE 1MG TRANSDERMAL PATCH As Ordered ONE (09:58)
[2019-08-27] MEDS ORDERED: SUCCINYLCHOLINE 100 MG/5 ML SYRINGE (J0330) As Ordered ONE (09:58)
[2019-08-27] MEDS ORDERED: SUGAMMADEX SODIUM 500 MG/5 ML VIAL (BRIDION) As Ordered ONE (09:59)
[2019-08-27] MEDS ORDERED: SCOPOLAMINE 1MG TRANSDERMAL PATCH TOP ONE (10:00)
[2019-08-27] MEDS ORDERED: BACITRACIN OINT 30GM As Ordered ONE (11:20)
[2019-08-27] MEDS ORDERED: LIDOCAINE W/EPINEPHRINE 1% 20ML VIAL As Ordered ONE (11:20)
[2019-08-27] MEDS ORDERED: fentaNYL 250 MCG/5 ML INJECTION (J3010) As Ordered ONE (11:29)
[2019-08-27] MEDS ORDERED: MIDAZOLAM INJ 2 MG/2 ML VIAL (J2250) As Ordered ONE (11:30)
[2019-08-27] MEDS ORDERED: ACETAMINOPHEN 1000MG 100ML IV BTL (OFIRMEV) (J0131 PER 10MG) As Ordered ONE (12:12)
[2019-08-27] MEDS ORDERED: ePHEDrine SULFATE 25 MG/5 ML(5MG/ML) SYRINGE As Ordered ONE (12:26)
[2019-08-27] MEDS ORDERED: GLYCOPYRROLATE INJ 0.2 MG/ML 2 ML VIAL As Ordered ONE (12:44)
[2019-08-27] MEDS ORDERED: fentaNYL 100 MCG/2 ML INJECTION (J3010) As Ordered ONE (14:26)
[2019-08-27] MEDS ORDERED: HYDROmorphone HCL 2 MG/ML 1ML VIAL (J1170) As Ordered ONE (16:19)
[2019-08-27] MEDS ORDERED: METOCLOPRAMIDE INJ 10MG/2ML VIAL (J2765) As Ordered ONE (17:47)
[2019-08-27] MEDS ORDERED: oxyCODONE 5MG TAB PO PRN (18:00)
[2019-08-27] MEDS ORDERED: ONDANSETRON 4MG/2ML VIAL (J2405) IV PRN (18:00)
[2019-08-27] MEDS ORDERED: LR 1,000 ML IV SCH ×2 (18:00)
[2019-08-27] MEDS ORDERED: METOCLOPRAMIDE INJ 10MG/2ML VIAL (J2765) IV PRN (18:00)
[2019-08-27] MEDS ORDERED: fentaNYL 100 MCG/2 ML INJECTION (J3010) IV PRN (18:00)
[2019-08-27 19:28] VITALS: BP 115/59
--- NOTE | 2019-09-12 14:36 | RO ---
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 POSTOPERATIVE DIAGNOSIS: Neoplasm of the left parotid gland. PROCEDURE PERFORMED: 1. Superficial left parotidectomy with facial nerve preservation. 2. Intraoperative nerve monitoring using the Nerveana. SURGEON: Eddie Zapata MD WHEEL AND CASTER REPAIRER: Dr. Maykel Katz Jr., MD ANESTHESIA: General. CLINICAL PREAMBLE: This 54-year-old woman has a left parotid lesion notable a year ago and had an fine needle aspiration (FNA) done in [place]. 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 However, the patient has noticed the left parotid lesions has been slowly enlarging over the past several months. Imaging studies confirmed the presence of a mass over the left parotid region over the anterior border of the left parotid gland. Management options including the surgery listed above have been discussed. The patient understood and consented to the procedure. OR NARRATION: The patient was identified in preop holding and had the left face marked. She was brought to the operating room in stable condition. In supine position on the operating room table, the patient received general anesthesia followed by orotracheal intubation without incident. No further paralytic agent was used throughout the remainder of the case. The test probe for the Nerveana system were placed over the left lateral [place]hal region and left lip commissure area as well. The ground electrode was then also placed. All of the electrodes were then successfully attached to the Nerveana system. Good impedance was obtained and electrical activity was noted upon tapping of the left face. At this time, the patient was prepped and draped in the usual fashion for the procedure. The left face was prepped in such a way that it could be visualized throughout the entire case. The modified Brian incision was made over the left preauricular area down to the left upper neck region. The skin flap was then developed over the face until it is at the border of the left parotid mass. The left parotid mass was felt to be right at the anterior border of the left parotid gland. At this time, left tail of the parotid was successfully mobilized off the sternocleidomastoid muscle. The parotid tissue was dissected off from the cartilaginous portion of the left external auditory canal. The tragal pointer was identified. Careful dissection was then carried out along the plane, approximately 1 cm anterior and deep to the tragal pointer. At this time, the pes of the facial nerve was successfully identified and stimulated. Careful dissection was then carried out along the upper and lower branches of the facial nerve. It was determined due to the anterior aspect of the mass, all five branches of the facial nerve were then carefully dissect out to allow excision of the parotid mass with approximately 1 cm of cuff of tissue around the lesion. Upon successful excision of the mass, additional soft tissue palpated along the superior aspect of the surgical site was somewhat firm. As such, additional resection was made to be sent off as a second specimen as well. All five branches of the facial nerve were found to be stimulatable at the end of the case. Complete hemostasis was achieved using a combination of bipolar cautery and Naya powder was then applied over the surgical site. A quarter-inch Lakeshia was applied over the left parotid bed. The modified Brian incision was then closed in two layers. #3-0 Vicryl was used to approximate the deep layer including the platysmal muscle. The skin incision was then closed using the #5-0 Prolene. The facelift dressing was then applied over the left facial region. At the end of the procedure, sponge and instrument counts were correct. No complications were encountered. Estimated blood loss was approximately 50 mL. General anesthesia was reversed and the patient was extubated and brought to the recovery room in stable condition. In the recovery area, the patient exhibited full and symmetrical facial motion. My dermatology physician assistant, Dr. Katz, was present throughout the entire case to provide retraction and some dissection to afford safe performance of the facial nerve dissection.
== END 2019-08-27 19:34 | disposition home or self-care (01) ==
LOC: M SDC 08:31
PROVIDERS: ATTEND Otolaryngology
DX: C07 Malignant neoplasm of parotid gland (principal); I10 Essential (primary) hypertension; E03.9 Hypothyroidism, unspecified; M32.9 Systemic lupus erythematosus, unspecified; E78.5 Hyperlipidemia, unspecified; M45.0 Ankylosing spondylitis of multiple sites in spine; K21.9 Gastro-esophageal reflux disease without esophagitis; F41.9 Anxiety disorder, unspecified; F32.9 Major depressive disorder, single episode, unspecified; M54.5 Low back pain; G43.909 Migraine, unspecified, not intractable, without status migrainosus; G47.33 Obstructive sleep apnea (adult) (pediatric); J30.89 Other allergic rhinitis; Z79.899 Other long term (current) drug therapy; Z79.891 Long term (current) use of opiate analgesic; Z90.710 Acquired absence of both cervix and uterus
CPT/HCPCS: 42420; 88305; J0131; J0330; J0697; J1100; J1170; J2250; J2405; J2765; J3010

== ENCOUNTER 2019-08-28 03:32 | Emergency (ER) | payer OTHER ==
[~2019-08-28] VITALS: Ht 165.1 cm; Wt 115.9 kg
[2019-08-28 03:32] VITALS: BP 168/89
[~2019-08-28 03:32] MED LIST changes: -LIDOCAINE 1% MDV 20ML VIAL SQ PRN; -LR 1,000 ML IV ONE; -dexameTHASONE 4 MG/ML 1ML VIAL (J1100) IV ONE
== END 2019-08-28 06:03 | disposition home or self-care (01) ==
LOC: M ED 03:32
DX: L76.22 Postprocedural hemorrhage of skin and subcutaneous tissue following other procedure (principal); Z79.51 Long term (current) use of inhaled steroids; Z79.891 Long term (current) use of opiate analgesic; Z79.899 Other long term (current) drug therapy

== ENCOUNTER → 2019-09-01 | Outpatient (CLI) | payer OTHER, MEDICAID ==
--- NOTE | 2019-09-04 02:54 | ECWPNPC ---
PATIENT NAME: ROSHAN WOODS : 1965 GENDER: FEMALE VISIT DATE: 09/01/2019 DISCHARGE DATE: 09/01/19 1025 VISIT LOCKED DATE TIME: PHYSICIAN: LAUREN DE LA ROSA RESOURCE: LAUREN DE LA ROSA REASON FOR APPOINTMENT 1. REVIEW MRI HISTORY OF PRESENT ILLNESS HISTORY OF PRESENT ILLNESS: HERE FOR F/U OF CHRONIC LBP WITH HX OF RADIATION INTO THIGHS BILAT L>R.REVIEWED MRI L/S SPINE DONE08/11/19.THIS IS SHOWING SOME PROGRESSION OF LUMBAR FACET ARTHROPATHY AND MILD LEFT L5/S1 NEURAL FORAMINAL NARROWING.HAD LEFT LUMBAR RF IN 2017 AND DID WELL WITH THIS UNTIL THIS PAST YEAR AND PAIN HAS GOTTEN WORSE.DISCUSSED DIAGNOSTIC TESTING AND RF.RATING PAIN VAS 3-6/10. PAIN THE PATIENT DESCRIBES THE PAIN... FALL RISK SCREENING: SCREENING :NO FALLS REPORTED IN THE LAST YEAR CURRENT MEDICATIONS TAKING PAIN RELIEVING RUB CREAM 1 DOSE EXTERNALLY NEEDED/ TAKING DICYCLOMINE HCL 10 MG CAPSULE 2 CAPSULES ORALLY FOUR TIMES A DAY NEEDED, NOTES: PRN TAKING VENTOLIN HFA AEROSOL SOLUTION 2 PUFFS NEEDED INHALATION EVERY 4 HOURS NEEDED TAKING FLONASE INHALER 2 SPRAY IN EACH NOSTRIL NASALLY ONCE A DAY NEEDED TAKING IMITREX 50 MG TABLET 1 TAB ORALLY NEEDED/ FOR MIGRAINES 2-3 MIGRAINES PER MONTH TAKING OMEGA 3 1000 MG CAPSULE 1 CAPSULE ORALLY ONCE A DAY TAKING MAY USE TUMERIC ONE CAPSULE DAILY TAKING MAY USE WHEY PROTEIN POWDER TAKING GABAPENTIN 300 MG CAPSULE 1 CAPSULE ORALLY THREE TIMES DAILY TAKING BACLOFEN 20 MG TABLET 1 CAP(S) ORALLY Q6H NEEDED TAKING FENTANYL 25 MCG/HR PATCH 72 HOUR 1 PATCH TO SKIN TRANSDERMAL 1 PATCH C45G=ZSL TAKING HYDROCODONE-ACETAMINOPHEN 10-325 MG TABLET 1/2 TO 1 TAB ORALLY Q6-8 H MDD3 TAKING FAMOTIDINE 10 MG TABLET 1 TABLET NEEDED ORALLY ONCE A DAY TAKING SUCRALFATE 1 GM TABLET 1 TABLET ON AN EMPTY STOMACH ORALLY DAILY TAKING GARLIC 300 MG TABLET DIRECTED ORALLY TAKING LOSARTAN POTASSIUM 50 MG TABLET 1 TABLET ORALLY DAILY TAKING HYDROXYCHLOROQUINE SULFATE 200 MG TABLET 1 TABLET WITH FOOD OR MILK ORALLY TWICE A DAY TAKING CETIRIZINE HCL 10 MG TABLET 1 TABLET ORALLY ONCE A DAY TAKING SYNTHROID 100 MCG TABLET 1 TABLET IN THE MORNING ON AN EMPTY STOMACH ORALLY ONCE A DAY TAKING HUMIRA PEN 40 MG/0.4ML PEN-INJECTOR KIT DIRECTED SUBCUTANEOUS NOT-TAKING OMEPRAZOLE 40 MG CAPSULE DELAYED RELEASE 1 CAPSULE ORALLY ONCE A DAY, NEEDED MEDICATION LIST REVIEWED AND RECONCILED WITH THE PATIENT PAST MEDICAL HISTORY [facility]: WAS FOLLOWING WITH JEFFERSONMICHELLE, HAS NOT BEEN WEARING CPAP FIBROMYALGIA HYPERTENSION LUPUS: RHEUMATOLOGY IN [place] GERD CHRONIC BACK PROBLEMS (BULDGING DISC) SOB WHEN IN SEVERE BACK PAIN; USES VENTOLIN INHALER COLONOSCOPY WITH EGD 2014 & 2016: DR. 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 IBD: FOLLOWS WITH GI, DR. PARVEZ LEHMAN HLA-B27 ANKYLOSING OF SI JOINT 10 YEAR ASCVD RISK 1.7% POSSIBLE SEIZURE DISORDER: PER PATIENT, WORK-UP WAS INCONCLUSIVE, WAS REFERRED TO NEUROLOGY IN [place] (ONLY ATTENDED INITIAL CONSULTATION, PATIENT DID NOT F/U) PARASITE - CRYPTOSPORION RODNEY HYPOTHYROIDISM VITAMIN D DEFICIENCY MIGRAINE ALLERGIC RHINITIS FATTY LIVER ALLERGIES N.K.D.A. SURGICAL HISTORY TONSILLECTOMY 1979 HYSTERECTOMY, RIGHT OVARY 2004 LEFT ANKLE FX REPAIR 2001 LEFT ANKLE SCREW REMOVED 2002 RECTOCELE REPAIR 2012 RECTOCELE MESH REMOVAL [address] PETERSEN 12/2016 CT SCAN HEAD: NORMAL 05/19/14 CHOLECYSTECTOMY-DR. MOTT 03/06/19 LEFT PAROTIDECTOMY 08/2019 FAMILY HISTORY FATHER: ALIVE 79 YRS MOTHER: ALIVE 72 YRS SIBLINGS: ALIVE 48 YRS, CONGENITAL HEART DISEASE, DIAGNOSED WITH UNSPECIFIED HEART DISEASE 1 SISTER(S) . 1 SON(S) , 2 DAUGHTER(S) - HEALTHY. SOCIAL HISTORY GENERAL: TOBACCO USE ARE YOU A:NONSMOKER NEVER SMOKER HIV / HEP-C SCREENING HIV TEST OFFERED TO PATIENT:YES DATE OFFERED:10/10/2016 TEST ACCEPTED:NO HEP-C TEST OFFERED TO PATIENT:YES DATE OFFERED:10/10/2016 REASON:PATIENT DECLINED HAD SCREENING IN THE PAST. TEST ACCEPTED:NO REASON:PATIENT DECLINED OTHERS AT HOME: LIVES WITH FRIEND. EDUCATION 12TH GRADUATE 2 YEARS COLLEGE. DIET: VEGAN. LANGUAGE LANGUAGES SPOKEN:[place]TH KOREAN DOMESTIC VIOLENCE DO YOU FEEL SAFE IN YOUR ENVIRONMENT?YES NEW PATIENT PAIN DIARY TODAY'S VISIT NOTES, FROM 0-10, WHAT LEVEL IS YOUR PAIN TODAY? 0. BMI CARE GOAL FOLLOW-UP ABOVE NORMAL BMI FOLLOW-UPDIETARY NEEDS EDUCATION, EXERCISE PROMOTION: STRENGTH TRAINING RECREATIONAL DRUG USE: NEVER DRUG USE?NO EXERCISE: NONE. LEARNING BARRIERS / SPECIAL NEEDS CHANGE FROM LAST VISIT?NO BARRIERS TO LEARNING?NO HEARING IMPAIRED?NO VISION IMPAIRED?YES COGNITIVELY IMPAIRED?NO :CORRECTIVE LENSES READINESS TO LEARN?YES LEARNING PREFERENCES?NO LEARNING CAPABILITIES PRESENT?YES EMOTIONAL BARRIERS?NO SPECIAL DEVICES?NO PAYROLL AND BENEFITS ANALYST NEEDED?NO PAIN CLINIC PFS, CLERGY, PUBLIC HEALTH REFERRALS PFS REFERRAL NEEDED?NO CLERGY REFERRAL NEEDED?NO PUBLIC HEALTH REFERRAL NEEDED?NO WAS THE PROVIDER NOTIFIED OF ANY PERTINENT INFO?YES HAS THE PATIENT BEEN EDUCATED REGARDING HIS/HER PLAN OF CARE?YES HAS THE PATIENT BEEN EDUCATED REGARDING PAIN, THE RISK FOR PAIN, THE IMPORTANCE OF EFFECTIVE PAIN MANAGEMENT, AND THE PAIN ASSESSMENT PROCESS?YES LATEX QUESTIONNAIRE LATEX ALLERGY : HAVE YOU EVER DEVELOPED ANY TYPE OF REACTION AFTER HANDLING LATEX PRODUCTS SUCH RUBBER GLOVES, CONDOMS, DIAPHRAGMS, BALLOONS, SOCKS, OR UNDERWEAR?NO LATEX ALLERGY : HAVE YOU EVER DEVELOPED ANY TYPE OF REACTION DURING OR AFTER DENTAL APPOINTMENT, VAGINAL/RECTAL EXAMINATION, SURGICAL PROCEDURE, OR ANY OTHER EXPOSURE?NO DATE ASKED : 07/22/2019 LATEX RISK : HAVE YOU EVER HAD ANY DIFFICULTY BREATHING OR HIVES AFTER EATING OR HANDLING ANY FRUITS, OR VEGETABLES; SUCH KIWI, BANANAS, STONE FRUITS, OR CHESTNUTSNO LATEX RISK : DO YOU HAVE A PREVIOUS PERSONAL HISTORY OF MORE THAN NINE SURGERIES, SPINA BIFIDA, OR REPEATED CATHERIZATIONS? NO LATEX RISK : ARE YOU FREQUENTLY EXPOSED TO LATEX PRODUCTS IN YOUR OCCUPATION?NO CAFFEINE CAFFEINE USE?YES 3 /DAY ADVANCE DIRECTIVE ADVANCE DIRECTIVE DISCUSSED WITH PATIENT:YES PT DOES NOT WANT HCP INFO AT THIS TIME, DECLINES ASSISTANCE RELIGIOUS [id number] PENTECOSTAL MARITAL STATUS: SINGLE. ALCOHOL SCREENING DID YOU HAVE A DRINK CONTAINING ALCOHOL IN THE PAST YEAR?NO POINTS0 INTERPRETATIONNEGATIVE OCCUPATION: HOMEMAKER. SEXUAL HX HAD SEX IN THE LAST 12 MONTHS (VAGINAL, ORAL, OR ANAL)?YES WITHMEN ONLY PREVENTION STRATEGIES DISCUSSED:OTHER USE PROTECTION?NO LMP:OVER 20 YEARS HAVE YOU EVER HAD AN STD?NO REVIEWED 02/11/18 1054 BVREVIEWED WITH PATIENT 06/23/18 0846 JSREVIEWED WITH PATIENT 08/22/18 0929REVIEWED WITH PT 11/21/18 0849 BVREVIEWED WITH PATIENT 05/22/19 0947 NLJ. HOSPITALIZATION/MAJOR DIAGNOSTIC PROCEDURE TWICE FOR CELLULITUS MOST RESCENTLY 3YEARS AGO ABOVE FOR SURGURIES POSSIBLE JAYME SAMPSON 2010 [facility]: POSSIBLE SEIZURES 2014 REVIEW OF SYSTEMS REVIEWED BY: PROVIDER: LAUREN ALEXANDRA . CONSTITUTIONAL: ANY CHANGE IN YOUR MEDICAL CONDITION? NO . CHILLS NO . FEVER NO . INFECTION: DO YOU HAVE NEW INFECTIONS? NO . DO YOU HAVE HISTORY OF MRSA? NO . MUSCULOSKELETAL: ANY NEW PATTERNS OF PAIN OR NUMBNESS? NO . GASTROENTEROLOGY: ANY NEW CHANGE IN BOWEL CONTROL? NO . GENITOURINARY: ANY NEW CHANGE IN BLADDER CONTROL? NO . IS THERE A CHANCE YOU COULD BE ? NO . HEMATOLOGY/LYMPH: DO YOU TAKE ANY BLOOD THINNERS? (FOR EXAMPLE- COUMADIN, PLAVIX, AGGRENOX, PLATEL, PRADAXA, OR XARELTO) NO . WHEN WAS YOUR LAST DOSE? DATE: TIME: . NEUROLOGY: HAVE YOU FALLEN IN THE PAST 12 MONTHS? NO . ANY NEW EXTREMITY NUMBNESS OR WEAKNESS? NO . CARDIOLOGY: DO YOU HAVE A PACEMAKER OR DEFIBRILLATOR? NO . RESPIRATORY: HAVE YOU BEEN SICK IN THE PAST WEEK? NO . FEVER NO . FLU LIKE SYMPTOMS? NO . COUGH NO . INTEGUMENTARY: DO YOU HAVE ANY RASHES OR OPEN SORES? NO . ALLERGIC/IMMUNO: ARE YOU ALLERGIC TO IV DYE? NO . ANY NEW ALLERGIES? NO . PSYCHIATRIC: DO YOU HAVE THOUGHTS OF HURTING YOURSELF OR SOMEONE ELSE? NO . ARE YOU ABUSED, NEGLECTED, OR IN AN UNSAFE ENVIRONMENT? NO . ENDOCRINOLOGY: ARE YOU DIABETIC? NO . OTHER: DO YOU NEED ANY PRESCRIPTIONS? NO . IF YES, PLEASE LIST: ____ . ANY NEW PROBLEMS WITH YOUR MEDICATIONS? NO . WHEN DID YOU LAST EAT? ____ . WHEN DID YOU LAST DRINK? ____ . WHAT DID YOU LAST DRINK? ____ . NAME OF PERSON DRIVING YOU HOME? ____ . DO YOU HAVE ANY OTHER QUESTIONS OR CONCERNS NO . VITAL SIGNS WT 266 LBS, HT 64.5 IN, BMI 44.95 INDEX, BP 133/84 MM HG, HR 71 /MIN, RR 18 /MIN, TEMP 97.6 F, OXYGEN SAT % 95%, NA INITIALS SC 09:51, REVIEWED BY: ARSEN. EXAMINATION GENERAL EXAMINATION: GENERAL AWAKE,ALERT ,PLEASANT . PSYCH AFFECT NORMAL . LUNGS: LUNG VELEZ ARE CLEAR TO AUSCULTATION BILATERALLY. GOOD MOVEMENT OF AIR . HEART: S1, S2 IN A REGULAR RATE AND RHYTHM. NO SIGNIFICANT MURMURS, RUBS OR GALLOPS NOTED . FOR BILAT. SIJ PALPATION:TENDER OVER BILAT. L4/5-L5/S1 LUMBAR FACETS WITH FACET LOADING.. DIAGNOSTIC TESTS REVIEWED MRI L/S SPINE-08/11/19. ASSESSMENTS SPONDYLOSIS WITHOUT MYELOPATHY OR RADICULOPATHY, LUMBOSACRAL REGION - M47.817 (PRIMARY) TREATMENT SPONDYLOSIS WITHOUT MYELOPATHY OR RADICULOPATHY, LUMBOSACRAL REGION NOTES: BILAT L4/5-L5/S1 LFBDX. PREVENTIVE MEDICINE PAIN CLINIC TEACHING: PROCEDURE TEACHING REVIEWED INFORMATION ON DIAGNOSTIC LUMBAR FACET BLOCK PROCEDURE WITH PATIENT. ALSO REVIEWED PRE-PROCEDURE INSTRUCTIONS. PATIENT VERBALIZED AN UNDERSTANDING. LILLY BOND 09/01/2019 11:07:53 AM > . PROCEDURE CODES FA211 ESTABILISHED PATIENT [facility] FACILITY CHARGE DISPOSITION & COMMUNICATION FOLLOW UP POST (REASON: BILAT L4/5-L5/S1 LFBDX) ELECTRONICALLY SIGNED BY NASRIN BLACKMON ON 09/03/2019 AT 01:27 PM EST DISCLAIMER : THIS IS A VISIT SUMMARY EXTRACTED FROM THE [employer] CHART. IT IS NOT A COPY OF THE [employer] PROGRESS NOTE. OZZIE
== END ==
LOC: M PAIN 09:30
PROVIDERS: ATTEND Nurse Practitioner Family
DX: M47.817 Spondylosis without myelopathy or radiculopathy, lumbosacral region (principal); G89.29 Other chronic pain; G47.33 Obstructive sleep apnea (adult) (pediatric); M79.7 Fibromyalgia; I10 Essential (primary) hypertension; E03.9 Hypothyroidism, unspecified; G43.909 Migraine, unspecified, not intractable, without status migrainosus; E66.01 Morbid (severe) obesity due to excess calories; Z68.41 Body mass index [BMI] 40.0-44.9, adult; Z79.891 Long term (current) use of opiate analgesic; Z79.899 Other long term (current) drug therapy

== ENCOUNTER → 2019-09-17 | Outpatient (CLI) | payer OTHER ==
--- NOTE | 2019-09-21 08:55 | RADONC ---
RADIATION ONCOLOGY CONSULTATION NOTE DATE: 09/17/2019 CHART NUMBER: [id number] DIAGNOSIS; Parotid cancer. STAGE: I, T1N0M0 ECOG PERFORMANCE STATUS: 0 CONSULTATION NOTE: Ms. 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 HISTORY OF PRESENT ILLNESS: The patient reports that she has had a lump over her left parotid gland literally for decades. She noticed that more recently the area began to grow, and on 08/27/[address] she was seen by Dr. Eddie Zapata and underwent a left superficial parotidectomy. Pathology revealed a 2 cm aggregate of acinic cell carcinoma. An additional 1 cm separate nodule in the container appeared to be part of the tumor. An additional specimen of the superior margin was taken and no further malignancy was seen. The benign carotid gland tissue included a negative lymph node. The specimen was subsequently sent to [facility] and the tumor size was noted to be 1.9 cm. There was no lymph vascular invasion. There was no perineural invasion. A total of one lymph node was examined and was negative for malignancy. There was no evidence of necrosis, active mitotic activity or pleomorphism to suggest a high grade transformation. The surgeon and pathologists were concerned of tumor spillage in the resection cavity. PAST MEDICAL HISTORY: The patient's past medical history is positive for arthritis, hypertension, lupus, and cataracts. She has ankylosing spondylitis, anxiety, chronic low back pain from bulging discs, depression, fatty liver, fibromyalgia, GERD, migraine headaches, and sleep apnea. In addition, she has had a hysterectomy, left ankle surgery, rectocele mesh removal in 2014, rectocele repair in 2012, a tonsillectomy, carpal tunnel surgery, bilateral bunionectomie, and ankle screws removed in 2002. ALLERGIES: The patient has NO KNOWN DRUG ALLERGIES. SOCIAL HISTORY: The patient does not smoke cigarettes nor abuse alcohol. She is a vegetarian. FAMILY HISTORY: The patient's family history is positive for a father with melanoma. REVIEW OF SYSTEMS: The patient's review of systems is positive for some difficulty chewing and poor dentition. Again, she complains of depression and some anxiety. She has gained weight recently. Her review of systems is otherwise noncontributory. She denies nausea, vomiting, fevers, chills, night sweats, diplopia, headaches, chest pains, rectal bleeding, urinary problems, bowel difficulties. PHYSICAL EXAMINATION: The patient is well-developed, well-nourished white female in no acute distress. HEENT exam is normocephalic, atraumatic. Extraocular movements are intact. The patient's oral cavity reveals some missing teeth on the left side as well as a few teeth with poor dental hygiene. She has multiple cavities and indeed there are perhaps two or three teeth that may major require extraction prior to initiation of radiation. There are no lesions on the inside of the cheek. There is a well-healed surgical scar present over the patient's left neck consistent with her parotidectomy. There is no palpable preauricular, cervical, supraclavicular, infraclavicular or axillary lymphadenopathy present. Her lungs are clear to auscultation and percussion. Heart is regular rate and rhythm. The remainder of her physical examination is within normal limits. ASSESSMENT: I have placed this patient on our list for discussion at our multidisciplinary tumor conference. Indeed, I have reviewed the NCCN guidelines with this patient for discussion of postoperative radiation therapy. Indeed, this is not a high-grade acinic cell carcinoma. If it were not for the margins further radiation may not be necessary. However, I have reviewed this case quite closely with our pathologists as well as with the head and neck surgeon Dr. Zapata. Clearly there was tumor at the edge of the margins, therefore signifying a very strong possibility of remaining tumor cells within the surgical cavity. In light of this, clearly there is an indication for postoperative radiation therapy and I have so informed her. I have discussed with the patient in detail the potential benefits as well as possible acute and chronic sequelae of external beam radiation therapy. We discussed logistics of treatment planning, simulation and subsequent fractionated daily radiation treatments. In addition, I discussed with the patient the issues that arise with her diagnosis of lupus. She may have some more difficulties tolerating radiation with her lupus. We will be limiting the field however to the lateral field, therefore, she should be able to get through treatment without the need of a feeding tube. I am concerned about the patient's overall dental hygiene, and she is scheduled to be seen by her dentist next week. I have discussed this with her and instructed her that any teeth removed prior to radiation if they may need extraction in the future. Indeed, there are multiple fillings throughout a few teeth on the treatment side and I think these are at risk. Once again in summary, I am recommending postoperative radiation therapy considering positive margins to her parotid region. In addition, I have placed her on our discussion for multidisciplinary tumor conference. I do not believe we are going to need a PEG feeding tube placed and dental consultation is underway. cc: MD Seema Welch PA
== END ==
LOC: M ONCR 08:59
PROVIDERS: ATTEND Radiology Radiation Oncology
DX: C07 Malignant neoplasm of parotid gland (principal)

== ENCOUNTER → 2019-10-20 | Outpatient (REF) | payer OTHER, MEDICAID ==
[2019-10-20 11:40] LABS: BASO # 0.1 10^3/uL (0.0-0.2); BASO % 0.9 % (0.0-1.0); EOS # 0.3 10^3/uL (0.0-0.5); EOS % 3.8 % (0.0-3.0); HEMOGLOBIN 13.6 g/dl (12.0-15.5); LYMPH # 2.8 10^3/uL (1.5-5.0); LYMPH % 37.1 % (24.0-44.0); MEAN CORPUSCULAR HEMOGLOBIN 28.8 pg (27.0-33.0); MEAN CORPUSCULAR HGB CONC 30.9 g/dl (32.0-36.5); MONO # 0.6 10^3/uL (0.0-0.8); MONO % 7.4 % (0.0-5.0); NEUTROPHILS # 3.9 10^3/uL (1.5-8.5); NEUTROPHILS % 50.7 % (36.0-66.0); PLATELET COUNT, AUTOMATED 309 10^3/uL (150-450); RED BLOOD COUNT 4.73 10^6/uL (4.00-5.40); WHITE BLOOD COUNT 7.6 10^3/uL (4.0-10.0)
[2019-10-20 12:16] LABS: ALT/SGPT 31 U/L (12-78); BILIRUBIN,TOTAL 0.5 MG/DL (0.2-1.0); BLOOD UREA NITROGEN 10 MG/DL (7-18); CALCIUM LEVEL 9.1 MG/DL (8.5-10.1); CARBON DIOXIDE LEVEL 32 MEQ/L (21-32); CHLORIDE LEVEL 104 MEQ/L (98-107); CHOLESTEROL LEVEL 224 MG/DL (<200); CREATININE FOR GFR 0.89 MG/DL (0.55-1.30); FREE T4 1.44 NG/DL (0.76-1.46); GLOMERULAR FILTRATION RATE > 60.0 (>51); GLUCOSE, FASTING 83 MG/DL (70-100); HDL CHOLESTEROL 50 MG/DL (>40); LDL CHOLESTEROL 136 MG/DL (<100); NON-HDL-C 174 MG/DL; POTASSIUM SERUM 4.4 MEQ/L (3.5-5.1); SODIUM LEVEL 139 MEQ/L (136-145); TOTAL PROTEIN 7.5 GM/DL (6.4-8.2); TRIGLYCERIDES LEVEL 191 MG/DL (<150)
[2019-10-20 12:18] LABS: PTH INTACT 144.9 PG/ML (18.5-88.0); TOTAL 25(OH) VITAMIN D 27.1 NG/ML (30.0-100.0)
== END ==
LOC: M SFHCPLAZ 09:47
PROVIDERS: ATTEND Physician Assistant Medical
DX: E03.9 Hypothyroidism, unspecified (principal); I10 Essential (primary) hypertension; E78.5 Hyperlipidemia, unspecified; E55.9 Vitamin D deficiency, unspecified

== ENCOUNTER 2019-10-27 10:47 | Outpatient (RCR) | payer MEDICAID, OTHER | END 2019-11-14 | LOC: M ONCR 10:47 | PROVIDERS: ATTEND Radiology Radiation Oncology | DX: C07 Malignant neoplasm of parotid gland (principal) ==

== ENCOUNTER → 2019-12-15 | Outpatient (RCR) | payer OTHER ==
--- NOTE | 2019-11-17 12:54 | RADONC ---
RADIATION ONCOLOGY PROGRESS NOTE DATE OF SERVICE: 11/16/2019 CHART NUMBER: [id number] Ms. Velasquez was taken to the linear accelerator today and underwent her first fraction of radiation today to her left parotid gland. Radiation was tolerated without difficulty or discomfort. The patient's review of systems is noncontributory. Denies nausea, vomiting, fevers, chills, night sweats, diplopia, headaches, anxiety or depression, anorexia, weight loss, visual disturbances, chest pain, urinary or bowel difficulties, bone pain, or neurological problems. PHYSICAL EXAMINATION: Clearly the skin is in good condition with no evidence of radiation change present. There is no moist or dry desquamation. The remainder of her physical exam remains unchanged as well. Once again, radiation will continue as scheduled.
--- NOTE | 2019-11-24 14:55 | RADONC ---
RADIATION ONCOLOGY FOLLOWUP NOTE DATE: 11/23/2019 CHART NUMBER: [id number] Ms. Velasquez is presently at a dose of 1200 cGy to her left parotid and at this time is tolerating treatments quite well. The patient reports that after her first fraction of radiation, she develop blotchiness of the skin over much of her face reminiscent of a lupus outbreak. She reports that by the time we had reached the fourth treatment that had resolved. She continues to also have xerostomia but that remains unchanged since her parotidectomy. The patient's review of systems is positive for initial skin reaction similar to her lupus outbreaks, as well as some xerostomia, but is otherwise noncontributory. Denies nausea, vomiting, fevers, chills, night sweats, diplopia, headaches, anxiety or depression, anorexia, weight loss, visual disturbances, chest pain, urinary or bowel difficulties, bone pain, or neurological problems. PHYSICAL EXAMINATION The patient's skin is in excellent condition with no evidence of radiation change present. There is no moist or dry desquamation. There is no blotchiness or any sign of skin reaction anywhere in the treatment field. Her oral cavity shows no evidence of mucositis. The remainder of her physical exam remains unchanged. ASSESSMENT: Ms. Velasquez is tolerating treatments quite well. We will continue to follow her closely considering her history of lupus. At this time, the patient has a limited field of radiation and hopefully should be able to tolerate her treatments without difficulty.
--- NOTE | 2019-12-01 09:17 | RADONC ---
RADIATION ONCOLOGY PROGRESS NOTE DATE: 11/30/2019 CHART #: [id number] DIAGNOSIS: Carcinoma of the parotid. Mrs. Velasquez with a diagnosis of carcinoma involving the left superficial parotid gland is currently receiving local regional radiotherapy. She was originally staged a stage I (T1N0M0). She is tolerating her radiotherapy reasonably well, but has the anticipated alteration of taste. REVIEW OF SYSTEMS: She denies any significant nausea, vomiting, odynophagia, or dysphagia, but does experience some dryness of the mouth. The remainder of the review of systems is noncontributory. EXAMINATION FINDINGS: The skin within the irradiated volume shows neither erythema nor desquamation. The remainder of the physical examination is unchanged. IMPRESSION: Tolerating therapy well. PLAN: Treatments to continue.
--- NOTE | 2019-12-07 14:30 | RADONC ---
RADIATION ONCOLOGY PROGRESS NOTE DATE OF SERVICE: 12/07/2019 CHART NUMBER: [id number]. PROGRESS NOTE: Ms. Velasquez is presently at a dose of 3000 cGy to her left parotid and is tolerating treatments fairly well with no significant difficulties with regard to her radiation treatments. REVIEW OF SYSTEMS: The patient's review of systems is noncontributory. She denies nausea, vomiting, fevers, chills, night sweats, diplopia, headaches, anxiety or depression, anorexia, weight loss, visual disturbances, chest pain, urinary or bowel difficulties, bone pain, or neurological problems. PHYSICAL EXAMINATION: An in-depth physical examination was deferred as per COVID-19 precautions. She does show some pinkness of the skin but no evidence of moist or dry desquamation. Radiation therapy is well tolerated and will continue as scheduled.
--- NOTE | 2019-12-14 16:31 | RADONC ---
RADIATION ONCOLOGY PROGRESS NOTE DATE: 12/14/2019 CHART NUMBER: [id number] PROGRESS NOTE: Ms. Velasquez is presently at a dose of 4000 cGy to her left parotid and is tolerating treatments quite well at this point with no complaints related to her radiation therapy. She has no real significant swallowing problems or other pain. REVIEW OF SYSTEMS: The patient's review of systems is noncontributory. Denies nausea, vomiting, fevers, chills, night sweats, diplopia, headaches, anxiety or depression, anorexia, weight loss, visual disturbances, chest pain, urinary or bowel difficulties, bone pain, or neurological problems. PHYSICAL EXAMINATION: The patient's skin is in good condition with no evidence of moist or dry desquamation. The remainder of her physical exam is largely unchanged except for some mucositis. Ms. Velasquez is tolerating treatments quite well and radiation will continue as scheduled.
== END ==
LOC: M ONCR 11-16 09:39
PROVIDERS: ATTEND Radiology Radiation Oncology
DX: C07 Malignant neoplasm of parotid gland (principal)

== ENCOUNTER 2019-12-25 10:10 | Emergency (ER) | payer OTHER ==
[~2019-12-25] VITALS: Ht 165.1 cm; Wt 122.3 kg
[2019-12-25] MEDS ORDERED: MECLIZINE 25 MG TABLET PO ONE (10:45)
[2019-12-25] MEDS ORDERED: NS 1,000 ML IV ONE (10:45)
[2019-12-25 10:57] LABS: BASO # 0.1 10^3/uL (0.0-0.2); BASO % 1.2 % (0.0-1.0); EOS # 0.2 10^3/uL (0.0-0.5); EOS % 4.4 % (0.0-3.0); HEMATOCRIT 43.1 % (36.0-47.0); HEMOGLOBIN 13.9 g/dl (12.0-15.5); LYMPH # 0.8 10^3/uL (1.5-5.0); LYMPH % 18.7 % (24.0-44.0); MEAN CORPUSCULAR HEMOGLOBIN 28.4 pg (27.0-33.0); MEAN CORPUSCULAR HGB CONC 32.3 g/dl (32.0-36.5); MEAN CORPUSCULAR VOLUME 88.1 fl (80.0-96.0); MONO # 0.4 10^3/uL (0.0-0.8); MONO % 8.3 % (0.0-5.0); NEUTROPHILS # 2.9 10^3/uL (1.5-8.5); NEUTROPHILS % 67.2 % (36.0-66.0); PLATELET COUNT, AUTOMATED 227 10^3/uL (150-450); RED BLOOD COUNT 4.89 10^6/uL (4.00-5.40); WHITE BLOOD COUNT 4.3 10^3/uL (4.0-10.0)
[2019-12-25] MEDS ORDERED: ATOR40TA75 PO (11:17)
[2019-12-25 11:22] LABS: ALBUMIN 3.8 GM/DL (3.2-5.2); ALT/SGPT 20 U/L (12-78); BILIRUBIN,TOTAL 0.9 MG/DL (0.2-1.0); BLOOD UREA NITROGEN 11 MG/DL (7-18); CALCIUM LEVEL 8.8 MG/DL (8.5-10.1); CARBON DIOXIDE LEVEL 34 MEQ/L (21-32); CHLORIDE LEVEL 104 MEQ/L (98-107); CREATININE FOR GFR 0.85 MG/DL (0.55-1.30); GLOMERULAR FILTRATION RATE > 60.0 (>51); GLUCOSE, FASTING 98 MG/DL (70-100); POTASSIUM SERUM 3.9 MEQ/L (3.5-5.1); SODIUM LEVEL 140 MEQ/L (136-145); TOTAL PROTEIN 7.2 GM/DL (6.4-8.2)
--- NOTE | 2019-12-25 12:30 | ECGEPIP ---
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
[2019-12-25] MEDS ORDERED: FOSFOMYCIN TROMETHAMINE 3 GM POWDER PACKET (MONUROL) PO ONE (14:45)
[2019-12-25 15:15] VITALS: BP 137/61
== END 2019-12-25 15:25 | disposition home or self-care (01) ==
LOC: M ED 10:10
DX: R53.1 Weakness (principal); N30.91 Cystitis, unspecified with hematuria; I10 Essential (primary) hypertension; R55 Syncope and collapse; C07 Malignant neoplasm of parotid gland

== ENCOUNTER 2020-01-01 09:25 | Outpatient (RCR) | payer OTHER ==
--- NOTE | 2019-12-22 08:09 | RADONC ---
RADIATION ONCOLOGY PROGRESS NOTE DATE: 12/21/2019 CHART #: [id number] Ms. Velasquez is presently at a dose of 5000 cGy to her left parotid and overall is tolerating treatments quite well with no significant difficulties related to her radiation therapy. She has some fatigue and mild sore throat. REVIEW OF SYSTEMS: The patient's review of systems is positive for fatigue and a sore throat, but is otherwise noncontributory. Denies nausea, vomiting, fevers, chills, night sweats, diplopia, headaches, anxiety or depression, anorexia, weight loss, visual disturbances, chest pain, urinary or bowel difficulties, bone pain, or neurological problems. PHYSICAL EXAMINATION: Physical exam was deferred as per COVID-19 protections. ASSESSMENT: Ms. Velasquez is tolerating treatments quite well and radiation will continue as scheduled.
--- NOTE | 2019-12-28 10:42 | RADONC ---
RADIATION ONCOLOGY PROGRESS NOTE DATE: 12/28/2019 CHART NUMBER: [id number] Ms. Velasquez is presently at a dose of 5800 cGy to her left parotid and is tolerating treatments quite well at this point with no significant complaints related to her radiation therapy. She is having no significant difficulty swallowing or other problems at this time. She is taking an increased amount of fluids and her PEG tube secondary to her episode of cystitis last Saturday. The patient's review of systems is noncontributory. She denies nausea, vomiting, fevers, chills, night sweats, diplopia, headaches, anxiety or depression, anorexia, weight loss, visual disturbances, chest pain, urinary or bowel difficulties, bone pain, or neurological problems. PHYSICAL EXAMINATION: The patient's skin is in good condition with no evidence of moist or dry desquamation. The remainder of her physical exam was deferred as per COVID-19 precautions. Ms. Velasquez is tolerating treatments quite well and radiation will continue as scheduled.
[~2020-01-01 09:25] MED LIST changes: +ATOR40TA75 PO
--- NOTE | 2020-01-01 13:52 | RADONC ---
RADIATION ONCOLOGY TREATMENT SUMMARY DATE OF SERVICE: 01/01/2020 CHART NUMBER: [id number] DIAGNOSIS: Parotid cancer. STAGE: Stage I, T1N0M0. ECOG PERFORMANCE STATUS: 0. TREATMENT SUMMARY: Ms. 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 We treated the patient to her left parotid for a dose of 6600 cGy delivered in 33 fractions of 200 cGy each over 46 elapsed days in 11/16/2019 through 01/01/2020. The patient's parotid gland was treated on a linear accelerator utilizing A6 MV photon beam via IMRT / IGRT. Ms. Velasquez tolerated her treatments quite well and was able complete therapy as prescribed without interruption. I have scheduled the patient to see me again in 1 month for further followup. She will also continue to be followed by her other physicians as well. cc: MD Seema Welch PA
== END 2020-01-14 ==
LOC: M ONCR 09:25
PROVIDERS: ATTEND Radiology Radiation Oncology
DX: C07 Malignant neoplasm of parotid gland (principal)

== ENCOUNTER → 2020-03-17 | Outpatient (REF) | payer OTHER, MEDICAID ==
[2020-03-17 11:51] LABS: BASO # 0.1 10^3/uL (0.0-0.2); EOS # 0.1 10^3/uL (0.0-0.5); EOS % 2.7 % (0.0-3.0); HEMATOCRIT 45.3 % (36.0-47.0); HEMOGLOBIN 14.7 g/dl (12.0-15.5); LYMPH # 0.9 10^3/uL (1.5-5.0); LYMPH % 19.3 % (24.0-44.0); MEAN CORPUSCULAR HEMOGLOBIN 29.5 pg (27.0-33.0); MEAN CORPUSCULAR HGB CONC 32.5 g/dl (32.0-36.5); MEAN CORPUSCULAR VOLUME 90.8 fl (80.0-96.0); MONO # 0.4 10^3/uL (0.0-0.8); MONO % 7.4 % (0.0-5.0); NEUTROPHILS # 3.4 10^3/uL (1.5-8.5); NEUTROPHILS % 69.4 % (36.0-66.0); PLATELET COUNT, AUTOMATED 257 10^3/uL (150-450); RED BLOOD COUNT 4.99 10^6/uL (4.00-5.40); WHITE BLOOD COUNT 4.9 10^3/uL (4.0-10.0)
[2020-03-17 12:11] LABS: PTH INTACT 91.8 PG/ML (18.5-88.0); TOTAL 25(OH) VITAMIN D 27.8 NG/ML (30.0-100.0)
[2020-03-17 12:25] LABS: ALBUMIN 4.4 GM/DL (3.2-5.2); ALT/SGPT 26 U/L (12-78); BILIRUBIN,TOTAL 1.7 MG/DL (0.2-1.0); BLOOD UREA NITROGEN 11 MG/DL (7-18); CALCIUM LEVEL 9.3 MG/DL (8.5-10.1); CARBON DIOXIDE LEVEL 30 MEQ/L (21-32); CHLORIDE LEVEL 102 MEQ/L (98-107); CHOLESTEROL LEVEL 124 MG/DL (<200); CREATININE FOR GFR 0.94 MG/DL (0.55-1.30); FREE T4 1.41 NG/DL (0.76-1.46); GLOMERULAR FILTRATION RATE > 60.0 (>51); GLUCOSE, FASTING 95 MG/DL (70-100); HDL CHOLESTEROL 50 MG/DL (>40); LDL CHOLESTEROL 52 MG/DL (<100); NON-HDL-C 74 MG/DL; POTASSIUM SERUM 3.9 MEQ/L (3.5-5.1); SODIUM LEVEL 138 MEQ/L (136-145); TOTAL PROTEIN 7.7 GM/DL (6.4-8.2); TRIGLYCERIDES LEVEL 112 MG/DL (<150)
== END ==
LOC: M PLALAB 10:03
PROVIDERS: ATTEND Physician Assistant Medical
DX: M32.9 Systemic lupus erythematosus, unspecified (principal); E78.5 Hyperlipidemia, unspecified; E03.9 Hypothyroidism, unspecified; E55.9 Vitamin D deficiency, unspecified

== ENCOUNTER → 2020-06-08 | Outpatient (CLI) | payer OTHER ==
--- NOTE | 2020-07-14 12:38 | RADONC ---
RADIATION ONCOLOGY NOTE DATE: 06/08/2020 DIAGNOSIS: Left parotid cancer. Stage I, T1 N0 M0. ECOG performance status 0. FOLLOWUP NOTE: Ms. Sutton is a delightful 54-year-old white female with a the diagnosis of a stage I, T1 N0 M0, low-grade acinic cell carcinoma of the left superificial parotid gland, who is presenting to us for routine followup visit 5 months post completion of external beam radiation therapy. Patient presented today reporting that she is doing quite well with no complaints at this time related to her radiation therapy or disease. She is having no oral cavity pain or skin discomfort. The patient's review of systems is noncontributory. She denies standard review of systems. PHYSICAL EXAMINATION: The patient is a well-developed, well-nourished white female in no acute distress. HEENT: Normocephalic, atraumatic. Extraocular movements are intact. There is no palpable cervical, supraclavicular, infraclavicular, axillary lymphadenopathy present. Her oral cavity reveals no evidence of nodularity, ulceration, or disease. LUNGS: Clear to auscultation and percussion. ASSESSMENT: The patient is clinically no evidence of disease (JO) at this time. She is being followed closely by her ears, nose, and throat (ENT) surgeon, Dr. Eddie Zapata, as well as her other physicians. In light of this, I have discharged her from our followup in this center except on an as-needed basis. MTDD
== END ==
LOC: M ONCR 12:47
PROVIDERS: ATTEND Radiology Radiation Oncology
DX: C07 Malignant neoplasm of parotid gland (principal)

== ENCOUNTER → 2020-07-18 | Outpatient (REF) | payer OTHER, MEDICAID ==
[2020-07-18 13:01] LABS: BASO # 0.1 10^3/uL (0.0-0.2); BASO % 1.2 % (0.0-1.0); EOS # 0.1 10^3/uL (0.0-0.5); EOS % 3.4 % (0.0-3.0); HEMOGLOBIN 13.7 g/dl (12.0-15.5); LYMPH # 1.1 10^3/uL (1.5-5.0); LYMPH % 27.8 % (24.0-44.0); MEAN CORPUSCULAR HEMOGLOBIN 28.3 pg (27.0-33.0); MEAN CORPUSCULAR HGB CONC 31.1 g/dl (32.0-36.5); MEAN CORPUSCULAR VOLUME 90.9 fl (80.0-96.0); MONO # 0.3 10^3/uL (0.0-0.8); NEUTROPHILS # 2.4 10^3/uL (1.5-8.5); NEUTROPHILS % 59.4 % (36.0-66.0); PLATELET COUNT, AUTOMATED 248 10^3/uL (150-450); RED BLOOD COUNT 4.84 10^6/uL (4.00-5.40); WHITE BLOOD COUNT 4.1 10^3/uL (4.0-10.0)
[2020-07-18 16:57] LABS: ALBUMIN 3.9 GM/DL (3.2-5.2); ALT/SGPT 22 U/L (12-78); BILIRUBIN,TOTAL 0.9 MG/DL (0.2-1.0); BLOOD UREA NITROGEN 7 MG/DL (7-18); CALCIUM LEVEL 9.2 MG/DL (8.5-10.1); CARBON DIOXIDE LEVEL 31 MEQ/L (21-32); CHLORIDE LEVEL 106 MEQ/L (98-107); CREATININE FOR GFR 0.83 MG/DL (0.55-1.30); GLOMERULAR FILTRATION RATE > 60.0 (>51); GLUCOSE, FASTING 92 MG/DL (70-100); POTASSIUM SERUM 3.9 MEQ/L (3.5-5.1); SODIUM LEVEL 142 MEQ/L (136-145); TOTAL PROTEIN 7.3 GM/DL (6.4-8.2)
== END ==
LOC: M SFHCPLAZ 10:00
PROVIDERS: ATTEND Physician Assistant Medical
DX: K21.00 Gastro-esophageal reflux disease with esophagitis, without bleeding (principal); K76.0 Fatty (change of) liver, not elsewhere classified; E03.9 Hypothyroidism, unspecified

== ENCOUNTER → 2020-08-18 | Outpatient (CLI) | payer OTHER ==
--- NOTE | 2020-08-18 11:58 | REP ---
INDICATION: RIGHT LEG PAIN, RO DVT. COMPARISON: None. TECHNIQUE: Right lower extremity duplex venous ultrasound. FINDINGS: The deep veins are anechoic and fully compressible from the groin to the popliteal fossa in the right lower extremity. Color flow imaging is homogeneous. Spectral Doppler interrogation demonstrates intact respiratory variation in flow and normal manual augmentation of flow. There is no evidence of deep vein thrombosis. IMPRESSION: Negative right lower extremity duplex venous ultrasound. No evidence of deep vein thrombosis. <Electronically signed by Cuong Peraza > 08/18/20 [id number]
== END ==
LOC: M RAD 11:04
PROVIDERS: ATTEND Orthopaedic Surgery
DX: M79.661 Pain in right lower leg (principal)

== ENCOUNTER → 2020-12-19 | Outpatient (CLI) | payer OTHER ==
[~2020-12-19] MED LIST changes: +GABA-282 PO; -GABA-843 PO
--- NOTE | 2020-12-19 09:08 | REP ---
INDICATION: K76.0 FATTY LIVER. COMPARISON: 04/24/2018. TECHNIQUE: Multiple sonographic images of the abdominal right upper quadrant. FINDINGS: There is been interim cholecystectomy. There is no intrahepatic or extrahepatic biliary duct dilatation. The common duct measures 8.4 mm in diameter which is upper normal for a post cholecystectomy patient. The hepatic parenchyma is hyperechoic, compatible with diffuse hepatocellular disease such as hepato steatosis. The visualized areas of the pancreatic head are echogenic up. This is nonspecific and can be normal but can sometimes be seen in the diabetes. The body and tail are obscured by bowel gas. The right kidney measures 11.5 x 5.3 x 3.6 cm and is normal size. There is no right renal calculus, hydronephrosis, solid mass or cystic mass. The abdominal aorta is obscured. IMPRESSION: Technically limited study because of patient body habitus. Cholecystectomy. Hyperechoic hepatic parenchyma compatible with hepato steatosis. The pancreatic body and tail are obscured by bowel gas. The pancreatic head is hyperechoic, normal variant but can sometimes be seen in diabetes. <Electronically signed by Claude Larry > 12/19/20 [id number]
== END ==
LOC: M WHC 08:11
PROVIDERS: ATTEND Physician Assistant Medical
DX: K76.0 Fatty (change of) liver, not elsewhere classified (principal); Z90.49 Acquired absence of other specified parts of digestive tract

== ENCOUNTER → 2021-02-16 | Outpatient (REF) | payer OTHER, MEDICAID ==
[2021-02-16 15:11] LABS: BASO # 0.1 10^3/uL (0.0-0.2); BASO % 0.9 % (0.0-1.0); EOS # 0.2 10^3/uL (0.0-0.5); EOS % 2.4 % (0.0-3.0); HEMATOCRIT 46.1 % (36.0-47.0); HEMOGLOBIN 14.9 g/dl (12.0-15.5); LYMPH # 1.7 10^3/uL (1.5-5.0); LYMPH % 22.5 % (24.0-44.0); MEAN CORPUSCULAR HEMOGLOBIN 29.3 pg (27.0-33.0); MEAN CORPUSCULAR HGB CONC 32.3 g/dl (32.0-36.5); MEAN CORPUSCULAR VOLUME 90.7 fl (80.0-96.0); MONO # 0.6 10^3/uL (0.0-0.8); MONO % 7.8 % (2.0-8.0); NEUTROPHILS # 5.1 10^3/uL (1.5-8.5); PLATELET COUNT, AUTOMATED 300 10^3/uL (150-450); RED BLOOD COUNT 5.08 10^6/uL (4.00-5.40); WHITE BLOOD COUNT 7.7 10^3/uL (4.0-10.0)
[2021-02-16 15:28] LABS: HEMOGLOBIN A1c 5.2 %
[2021-02-16 15:41] LABS: ERYTHROCYTE SEDIMENTATION RATE 10 mm/hr (0-30)
[2021-02-16 15:44] LABS: ALT/SGPT 34 U/L (12-78); BLOOD UREA NITROGEN 10 MG/DL (7-18); C REACTIVE PROTEIN QUANTITATIV 0.69 MG/DL (0.00-0.30); CALCIUM LEVEL 9.5 MG/DL (8.5-10.1); CARBON DIOXIDE LEVEL 30 MEQ/L (21-32); CHLORIDE LEVEL 104 MEQ/L (98-107); CHOLESTEROL LEVEL 129 MG/DL (<200); CHOLESTEROL RISK RATIO 2.303 (<5); GLOMERULAR FILTRATION RATE > 60.0 (>51); GLUCOSE, FASTING 109 MG/DL (70-100); HDL CHOLESTEROL 56 MG/DL (>40); LDL CHOLESTEROL 45 MG/DL (<100); NON-HDL-C 73 MG/DL; POTASSIUM SERUM 4.1 MEQ/L (3.5-5.1); SODIUM LEVEL 140 MEQ/L (136-145); TOTAL PROTEIN 7.5 GM/DL (6.4-8.2); TRIGLYCERIDES LEVEL 139 MG/DL (<150)
== END ==
LOC: M SFHCPLAZ 12:12
PROVIDERS: ATTEND Physician Assistant Medical
DX: I10 Essential (primary) hypertension (principal); E78.5 Hyperlipidemia, unspecified; M32.9 Systemic lupus erythematosus, unspecified; E66.01 Morbid (severe) obesity due to excess calories

== ENCOUNTER → 2021-08-16 | Outpatient (CLI) | payer OTHER, MEDICAID ==
[~2021-08-16] MED LIST changes: -DICY20TA11 PO; +DICY20TA20 PO; +FAMO10TA50 PO; -FAMO1TAB25 PO; +LOSA50TA28 PO; -LOSA50TA88 PO; +OMEP40CA4 PO; -OMEP40CA97 PO
[2021-08-16 16:19] LABS: ALBUMIN 3.9 GM/DL (3.2-5.2); ALT/SGPT 33 U/L (12-78); BILIRUBIN,TOTAL 1.1 MG/DL (0.2-1.0); BLOOD UREA NITROGEN 8 MG/DL (7-18); CALCIUM LEVEL 9.1 MG/DL (8.5-10.1); CARBON DIOXIDE LEVEL 31 MEQ/L (21-32); CHLORIDE LEVEL 102 MEQ/L (98-107); CHOLESTEROL LEVEL 123 MG/DL (<200); CHOLESTEROL RISK RATIO 2.196 (<5); CREATININE FOR GFR 0.86 MG/DL (0.55-1.30); FREE T4 1.66 NG/DL (0.76-1.46); GLOMERULAR FILTRATION RATE > 60.0 (>51); GLUCOSE, FASTING 84 MG/DL (70-100); HDL CHOLESTEROL 56 MG/DL (>40); LDL CHOLESTEROL 43 MG/DL (<100); NON-HDL-C 67 MG/DL; SODIUM LEVEL 140 MEQ/L (136-145); TOTAL 25(OH) VITAMIN D 38.4 NG/ML (30.0-100.0); TOTAL PROTEIN 7.6 GM/DL (6.4-8.2); TRIGLYCERIDES LEVEL 120 MG/DL (<150)
== END ==
LOC: M PLALAB 13:13
PROVIDERS: ATTEND Physician Assistant Medical
DX: E03.9 Hypothyroidism, unspecified (principal)

== ENCOUNTER → 2022-02-28 | Outpatient (CLI) | payer OTHER ==
[~2022-02-28] MED LIST changes: +ISOVUE-370 76% 100ML VIAL As Ordered ONE
== END ==
LOC: M RAD 15:24
PROVIDERS: ATTEND Otolaryngology
DX: R22.1 Localized swelling, mass and lump, neck (principal)
CPT/HCPCS: 70491; Q9967

== ENCOUNTER → 2022-03-14 | Outpatient (CLI) | payer OTHER ==
[~2022-03-14] MED LIST changes: -ISOVUE-370 76% 100ML VIAL As Ordered ONE
[2022-03-14 15:33] LABS: BASO # 0.1 10^3/uL (0.0-0.2); EOS # 0.2 10^3/uL (0.0-0.5); EOS % 2.9 % (0.0-3.0); HEMATOCRIT 44.4 % (36.0-47.0); HEMOGLOBIN 14.4 g/dl (12.0-15.5); LYMPH # 1.6 10^3/uL (1.5-5.0); LYMPH % 31.3 % (24.0-44.0); MEAN CORPUSCULAR HEMOGLOBIN 30.4 pg (27.0-33.0); MEAN CORPUSCULAR HGB CONC 32.4 g/dl (32.0-36.5); MEAN CORPUSCULAR VOLUME 93.7 fl (80.0-96.0); MONO # 0.4 10^3/uL (0.0-0.8); MONO % 8.3 % (2.0-8.0); NEUTROPHILS # 2.9 10^3/uL (1.5-8.5); NEUTROPHILS % 56.5 % (36.0-66.0); PLATELET COUNT, AUTOMATED 252 10^3/uL (150-450); RED BLOOD COUNT 4.74 10^6/uL (4.00-5.40); WHITE BLOOD COUNT 5.2 10^3/uL (4.0-10.0)
[2022-03-14 16:00] LABS: ERYTHROCYTE SEDIMENTATION RATE 5 mm/hr (0-30)
[2022-03-14 16:01] LABS: ALBUMIN 3.9 GM/DL (3.2-5.2); ALT/SGPT 38 U/L (12-78); BILIRUBIN,TOTAL 1.2 MG/DL (0.2-1.0); BLOOD UREA NITROGEN 8 MG/DL (7-18); CALCIUM LEVEL 9.2 MG/DL (8.5-10.1); CARBON DIOXIDE LEVEL 31 MEQ/L (21-32); CHLORIDE LEVEL 106 MEQ/L (98-107); CHOLESTEROL LEVEL 136 MG/DL (<200); CREATININE FOR GFR 0.97 MG/DL (0.55-1.30); GLOMERULAR FILTRATION RATE > 60.0 (>51); GLUCOSE, FASTING 89 MG/DL (70-100); HDL CHOLESTEROL 68 MG/DL (>40); LDL CHOLESTEROL 42 MG/DL (<100); NON-HDL-C 68 MG/DL; SODIUM LEVEL 141 MEQ/L (136-145); TOTAL PROTEIN 7.2 GM/DL (6.4-8.2); TRIGLYCERIDES LEVEL 128 MG/DL (<150)
[2022-03-14 16:10] LABS: HEMOGLOBIN A1c 5.1 %
[2022-03-14 16:16] LABS: PTH INTACT 133.1 PG/ML (18.5-88.0); TOTAL 25(OH) VITAMIN D 38.4 NG/ML (30.0-100.0)
== END ==
LOC: M PLALAB 12:27
PROVIDERS: ATTEND Physician Assistant Medical
DX: M32.9 Systemic lupus erythematosus, unspecified (principal); E78.5 Hyperlipidemia, unspecified; E03.9 Hypothyroidism, unspecified; I10 Essential (primary) hypertension; E55.9 Vitamin D deficiency, unspecified

== ENCOUNTER → 2022-04-27 | Outpatient (CLI) | payer OTHER ==
[2022-04-27 17:41] LABS: BASO # 0.1 10^3/uL (0.0-0.2); EOS # 0.2 10^3/uL (0.0-0.5); EOS % 1.9 % (0.0-3.0); HEMATOCRIT 44.2 % (36.0-47.0); HEMOGLOBIN 14.4 g/dl (12.0-15.5); LYMPH # 2.8 10^3/uL (1.5-5.0); MEAN CORPUSCULAR HEMOGLOBIN 30.4 pg (27.0-33.0); MEAN CORPUSCULAR HGB CONC 32.6 g/dl (32.0-36.5); MEAN CORPUSCULAR VOLUME 93.4 fl (80.0-96.0); MONO # 0.7 10^3/uL (0.0-0.8); MONO % 8.9 % (2.0-8.0); NEUTROPHILS # 4.2 10^3/uL (1.5-8.5); NEUTROPHILS % 52.9 % (36.0-66.0); PLATELET COUNT, AUTOMATED 295 10^3/uL (150-450); RED BLOOD COUNT 4.73 10^6/uL (4.00-5.40)
[2022-04-27 18:06] LABS: ERYTHROCYTE SEDIMENTATION RATE 5 mm/hr (0-30)
[2022-04-27 18:22] LABS: ALT/SGPT 38 U/L (12-78); BLOOD UREA NITROGEN 8 MG/DL (7-18); C REACTIVE PROTEIN QUANTITATIV < 0.30 MG/DL (0.00-0.30); CREATININE FOR GFR 0.84 MG/DL (0.55-1.30); GLOMERULAR FILTRATION RATE > 60.0 (>51)
== END ==
LOC: M PLALAB 15:22
PROVIDERS: ATTEND Nurse Practitioner
DX: M07.69 Enteropathic arthropathies, multiple sites (principal); Z79.899 Other long term (current) drug therapy

== ENCOUNTER → 2022-09-19 | Outpatient (CLI) | payer OTHER | LOC: M PLAIMG 11:04 | PROVIDERS: ATTEND Physician Assistant Medical | DX: M15.0 Primary generalized (osteo)arthritis (principal) ==

== ENCOUNTER → 2022-11-14 | Outpatient (CLI) | payer OTHER ==
[2022-11-14 16:14] LABS: BASO # 0.1 10^3/uL (0.0-0.2); BASO % 0.7 % (0.0-1.0); EOS # 0.1 10^3/uL (0.0-0.5); EOS % 1.6 % (0.0-3.0); HEMATOCRIT 43.4 % (36.0-47.0); HEMOGLOBIN 14.4 g/dl (12.0-15.5); LYMPH # 2.1 10^3/uL (1.5-5.0); LYMPH % 29.2 % (24.0-44.0); MEAN CORPUSCULAR HEMOGLOBIN 31.6 pg (27.0-33.0); MEAN CORPUSCULAR HGB CONC 33.2 g/dl (32.0-36.5); MEAN CORPUSCULAR VOLUME 95.2 fl (80.0-96.0); MONO # 0.5 10^3/uL (0.0-0.8); MONO % 7.3 % (2.0-8.0); NEUTROPHILS # 4.3 10^3/uL (1.5-8.5); NEUTROPHILS % 61.1 % (36.0-66.0); PLATELET COUNT, AUTOMATED 230 10^3/uL (150-450); RED BLOOD COUNT 4.56 10^6/uL (4.00-5.40)
[2022-11-14 16:30] LABS: HEMOGLOBIN A1c 4.9 % (4.0-6.0)
[2022-11-14 16:42] LABS: CPK CREATINE PHOSPHOKINASE 110 U/L (34-145)
[2022-11-14 16:45] LABS: ALBUMIN 4.2 G/DL (3.2-5.2); ALKALINE PHOSPHATASE 54 U/L (46-116); ALT/SGPT 47 U/L (7.0-40); AST/SGOT 43 U/L (<34); BLOOD UREA NITROGEN 10 MG/DL (9-23); CALCIUM LEVEL 9.8 MG/DL (8.5-10.1); CARBON DIOXIDE LEVEL 31 MMOL/L (20-31); CHLORIDE LEVEL 102 MMOL/L (98-107); CHOLESTEROL LEVEL 132 MG/DL (<200); CHOLESTEROL RISK RATIO 2.14 (<5); CREATININE FOR GFR 0.82 MG/DL (0.55-1.30); GLOMERULAR FILTRATION RATE > 60.0 (>51); GLUCOSE, FASTING 87 MG/DL (60-100); HDL CHOLESTEROL 61.6 MG/DL (>40); LDL CHOLESTEROL 50.8 MG/DL (<100); NON-HDL-C 70 MG/DL; POTASSIUM SERUM 4.4 MMOL/L (3.5-5.1); SODIUM LEVEL 140 MMOL/L (136-145); THYROID STIMULATING HORMONE 1.979 uIU/ML (0.55-4.78); TRIGLYCERIDES LEVEL 98 MG/DL (<150)
== END ==
LOC: M PLALAB 11:29
PROVIDERS: ATTEND Physician Assistant Medical
DX: E66.01 Morbid (severe) obesity due to excess calories (principal)

== ENCOUNTER → 2023-02-20 | Outpatient (CLI) | payer OTHER ==
[2023-02-20 13:29] LABS: INR 0.91; PROTHROMBIN TIME 12.5 SECONDS (12.5-14.5)
[2023-02-20 13:54] LABS: HEPATITIS B SURFACE ANTIBODY NEGATIVE (POSITIVE)
[2023-02-20 14:26] LABS: HEPATITIS C VIRUS ABY INDEX 0.1 INDEX (<0.8)
[2023-02-22 16:08] LABS: AFP TUMOR TOTAL 2.9 ng/mL (0.0-9.2); ANA (HEP2) Negative (.); ANTI-MITOCHONDRIAL ANTIBODY <20.0 Units (0.0-20.0); HEPATITIS A IgG TOTAL Negative (Negative)
== END ==
LOC: M PLALAB 10:04
PROVIDERS: ATTEND Physician Assistant Medical
DX: K76.0 Fatty (change of) liver, not elsewhere classified (principal)

== ENCOUNTER → 2023-03-07 | Outpatient (CLI) | payer OTHER ==
[~2023-03-07] MED LIST changes: -HYDR200T3; +HYDR200T46; -K-TA10TA PO; +POTA-164 PO
== END ==
LOC: M RAD 07:26
PROVIDERS: ATTEND Physician Assistant Medical
DX: K76.0 Fatty (change of) liver, not elsewhere classified (principal)

== ENCOUNTER → 2023-06-26 | Outpatient (CLI) | payer MEDICAID, OTHER ==
[2023-06-26 14:31] LABS: BASO # 0.1 10^3/uL (0.0-0.2); EOS # 0.2 10^3/uL (0.0-0.5); EOS % 2.9 % (0.0-3.0); HEMATOCRIT 44.7 % (36.0-47.0); HEMOGLOBIN 14.4 g/dl (12.0-15.5); LYMPH # 2.3 10^3/uL (1.5-5.0); LYMPH % 43.2 % (24.0-44.0); MEAN CORPUSCULAR HEMOGLOBIN 31.4 pg (27.0-33.0); MEAN CORPUSCULAR HGB CONC 32.2 g/dl (32.0-36.5); MEAN CORPUSCULAR VOLUME 97.4 fl (80.0-96.0); MONO # 0.5 10^3/uL (0.0-0.8); MONO % 9.2 % (2.0-8.0); NEUTROPHILS # 2.3 10^3/uL (1.5-8.5); NEUTROPHILS % 43.5 % (36.0-66.0); PLATELET COUNT, AUTOMATED 254 10^3/uL (150-450); RED BLOOD COUNT 4.59 10^6/uL (4.00-5.40); WHITE BLOOD COUNT 5.2 10^3/uL (4.0-10.0)
[2023-06-26 14:52] LABS: THYROID STIMULATING HORMONE 4.499 uIU/ML (0.55-4.78)
[2023-06-26 14:54] LABS: ALBUMIN 4.2 G/DL (3.2-5.2); ALKALINE PHOSPHATASE 60 U/L (46-116); ALT/SGPT 36 U/L (7.0-40); AST/SGOT 35 U/L (<34); BILIRUBIN,TOTAL 0.8 MG/DL (0.3-1.2); BLOOD UREA NITROGEN 11 MG/DL (9-23); CALCIUM LEVEL 9.4 MG/DL (8.5-10.1); CARBON DIOXIDE LEVEL 32 MMOL/L (20-31); CHLORIDE LEVEL 103 MMOL/L (98-107); CHOLESTEROL LEVEL 138 MG/DL (<200); CHOLESTEROL RISK RATIO 2.03 (<5); CREATININE FOR GFR 0.77 MG/DL (0.55-1.30); FREE T4 1.22 NG/DL (0.89-1.76); GLOMERULAR FILTRATION RATE > 60.0 (>51); GLUCOSE, FASTING 72 MG/DL (60-100); HDL CHOLESTEROL 67.8 MG/DL (>40); NON-HDL-C 70.2 MG/DL; POTASSIUM SERUM 4.4 MMOL/L (3.5-5.1); SODIUM LEVEL 142 MMOL/L (136-145); TRIGLYCERIDES LEVEL 76 MG/DL (<150)
== END ==
LOC: M PLALAB 10:51
PROVIDERS: ATTEND Physician Assistant Medical
DX: I10 Essential (primary) hypertension (principal)

== ENCOUNTER → 2023-07-19 | Outpatient (CLI) | payer OTHER ==
[2023-07-19 16:37] LABS: THYROID STIMULATING HORMONE 2.33 uIU/ML (0.55-4.78)
[2023-07-19 16:46] LABS: FREE T4 1.31 NG/DL (0.89-1.76)
== END ==
LOC: M PLALAB 14:47
PROVIDERS: ATTEND Physician Assistant Medical
DX: R79.89 Other specified abnormal findings of blood chemistry (principal)

== ENCOUNTER → 2024-02-26 | Outpatient (CLI) | payer OTHER ==
[2024-02-26 13:40] LABS: BASO % 0.7 % (0.0-1.0); EOS # 0.2 10^3/uL (0.0-0.5); EOS % 2.8 % (0.0-3.0); HEMATOCRIT 44.1 % (36.0-47.0); HEMOGLOBIN 14.5 g/dl (12.0-15.5); LYMPH # 1.7 10^3/uL (1.5-5.0); LYMPH % 31.3 % (24.0-44.0); MEAN CORPUSCULAR HEMOGLOBIN 31.8 pg (27.0-33.0); MEAN CORPUSCULAR HGB CONC 32.9 g/dl (32.0-36.5); MEAN CORPUSCULAR VOLUME 96.7 fl (80.0-96.0); MONO # 0.5 10^3/uL (0.0-0.8); MONO % 9.3 % (2.0-8.0); NEUTROPHILS % 55.7 % (36.0-66.0); PLATELET COUNT, AUTOMATED 250 10^3/uL (150-450); RED BLOOD COUNT 4.56 10^6/uL (4.00-5.40); WHITE BLOOD COUNT 5.4 10^3/uL (4.0-10.0)
[2024-02-26 13:51] LABS: FERRITIN 15.6 NG/ML (7.3-270.7); FREE T4 1.55 NG/DL (0.89-1.76); THYROID STIMULATING HORMONE 2.242 uIU/ML (0.55-4.78)
[2024-02-26 14:02] LABS: ALBUMIN 4.1 G/DL (3.2-5.2); ALKALINE PHOSPHATASE 56 U/L (46-116); ALT/SGPT 36 U/L (7.0-40); AST/SGOT 26 U/L (<34); BILIRUBIN,TOTAL 0.8 MG/DL (0.3-1.2); BLOOD UREA NITROGEN 11 MG/DL (9-23); CALCIUM LEVEL 9.4 MG/DL (8.5-10.1); CARBON DIOXIDE LEVEL 32 MMOL/L (20-31); CHLORIDE LEVEL 106 MMOL/L (98-107); CHOLESTEROL LEVEL 132 MG/DL (<200); CHOLESTEROL RISK RATIO 2.01 (<5); CREATININE FOR GFR 0.73 MG/DL (0.55-1.30); GLOMERULAR FILTRATION RATE > 60.0 (>51); GLUCOSE, FASTING 79 MG/DL (60-100); HDL CHOLESTEROL 65.6 MG/DL (>40); IRON (FE) 81 UG/DL (50-170); NON-HDL-C 66.4 MG/DL; POTASSIUM SERUM 4.2 MMOL/L (3.5-5.1); SODIUM LEVEL 143 MMOL/L (136-145); TOTAL PROTEIN 6.8 G/DL (5.7-8.2); TRIGLYCERIDES LEVEL 92 MG/DL (<150)
== END ==
LOC: M PLALAB 10:29
PROVIDERS: ATTEND Physician Assistant Medical
DX: I10 Essential (primary) hypertension (principal)